=== PATIENT | male | born 1960 | race Caucasian/White ===

== ENCOUNTER 2017-08-06 18:29 | Emergency (ER) | payer OTHER, SELFPAY ==
[2017-08-06 18:30] VITALS: BP 162/92; PULSE 89; RESP 16; TEMP 36.6; O2SAT 95; BMI 33.9
[2017-08-06 19:19] LABS: Bacteria 0 SEEN /hpf (None Seen); Mucous, Urine 0 SEEN /hpf (<or=2+); Red Blood Cells-Urine 0 SEEN /hpf (0-5); Squamous Epithelial Cells - UA 0 SEEN /hpf (0-5); White Blood Cells 0 SEEN /hpf (0-5)
[2017-08-06 19:21] LABS: Color, Urine Yellow (Yellow); Glucose, Dipstick Normal (Normal); Ketone-Dipstick Negative (Negative); Leukocyte Esterase-Dipstick 25 /ul (Negative); Nitrite-Dipstick Negative (Negative); Occult Blood-Urine Negative /ul (Negative); Protein-Dipstick Negative (Negative); Urine Bilirubin Dipstick Negative (Negative); Urine Clarity Clear (Clear); Urine Urobilinogen Normal (Normal)
[2017-08-06 19:27] LABS: Absolute Lymphocyte Count 1.31 X10^3/ul (0.83-4.51); Basophil# 0.03 X10^3/uL; Basophil% 0.6 % (0-1); Hematocrit 40.7 % (40-54); Hemoglobin 13.6 g/dl (13.0-16.5); Lymphocyte # 1.31 X10^3/ul (4.0); Mean Corp Hgb Conc 33.4 g/gl (32-36); Mean Corpuscular Hgb 28.5 pg (27.0-32.0); Mean Corpuscular Volume 85.3 fL (80-94); Mean Platelet Vol. 8.7 fl (6.2-12.0); Monocyte# 0.63 X10^3/uL; Monocyte% 12.5 % (0-10); Neutrophil # 2.96 X10^3/uL (2.7-7.7); Neutrophil % 58.7 % (47-70); Platelet Count 185 K/mm3 (150-450); RBC Distribution Width CV 13.3 % (11.6-14.6); RBC Distribution Width SD 41.4 fl (35.1-43.9); Red Blood Count 4.77 M/mm3 (4.6-6.2)
[2017-08-06 19:28] LABS: POSITIVE COUNT NO; POSITIVE DIFFERENTIAL NO; POSITIVE MORPHOLOGY NO
[2017-08-06 19:40] LABS: Anion Gap 8 (5-15); BUN 12 mg/dL (7-18); BUN/Creat Ratio 15.3 RATIO (10-20); Calcium,Total 8.7 mg/dL (8.5-10.1); Chloride 107 mmol/L (98-107); Creatinine, Serum 0.79 mg/dL (0.70-1.30); EST Glomerular Filtration Rate 109 mL/min (>60); Est Glom Filt Rate - Afr Amer 131 mL/min (>60); Estimated Creatinine Clearance 115.96 ml/min; Glucose 82 mg/dL (74-106); Potassium 3.7 mmol/L (3.5-5.1); Sodium Level 142 mmol/L (136-145)
--- NOTE | 2017-08-06 20:03 | ED.DCSUM_ITS ---
- ER Visit Summary Date of Service: 08/06/17 Chief Complaint: Dysuria and frequency History of Present Illness: The patient is a [address] Mckeon. He reports that he has dysuria and frequency that began 2 days ago. He states that he at times feels as though he does not empty his bladder well. However, he reports that he emptied a better than it had previously just prior to coming to the emergency department. He denies any abdominal pain, fever, chills, nausea, or vomiting. Physical Examination: Vitals: Stable. Afebrile. General: Well-nourished and well-developed. Head: Normocephalic atraumatic. Neck: Supple, no lymphadenopathy. No JVD. Nontender. Cardiovascular: Regular rate and rhythm. No murmurs. Respiratory: No respiratory distress. Clear to auscultation bilaterally. Abdominal: Soft, nontender, nondistended, normal bowel sounds. No guarding, rebound, or peritoneal signs. Back: Nontender. Extremities: Nontender, no edema. Skin: Normal color, no rash. Neurologic: Alert and oriented ?3. Cranial nerves II through XII are intact. Normal strength and sensation. Psych: Normal affect. Test Results: CBC is remarkable for monocytes of 13. Chem-7 is normal. UA is negative. Emergency Department Course and Treatment: She had a bladder scan that showed 87 cc. He has no suprapubic tenderness or fullness to suggest that this is wrong. He does not want a Gallo catheter placed. I feel that is a reasonable course of action. Treatment Plan: He will be discharged with Flomax. Instructed to return to emerge department if he is having difficulty emptying his bladder. Follow-up Dr. Mckeon tomorrow as previously scheduled. Follow Dr. Chacon in 1 week if not improving. Disposition: To home in improved and stable condition. Impression: 1. Urethritis. This note was generated with [employer] dictation software. It may contain incorrect words, spelling, and punctuation that were not noted in review of the chart prior to signing ED Disposition - Plan for ED Patient: Disposition: Home or Assisted Living Chief Complaint: Complaint Instructions: ED Retention Urinary Male Prescriptions: Tamsulosin HCl [Flomax] 0.4 mg PO DAILY #30 capsule Referrals: Enrique Chacon MD [STAFF PHYSICIAN] - 1 Week if not improving Boone Mckeon MD [Primary Care Provider] - Keep Brando appointment
[2017-08-06 20:11] VITALS: BP 153/91; PULSE 72; RESP 16; O2SAT 95
== END 2017-08-06 20:11 | disposition home or self-care (01) ==
PROVIDERS: Emergency Provider Emergency Medicine; Family Provider Internal Medicine; PCP Internal Medicine
DX: N34.2 Other urethritis (principal)
CPT/HCPCS: 80048; 81001; 85025; 99284; A4216

== ENCOUNTER → 2018-02-04 17:29 | Outpatient (CLI) | payer OTHER, SELFPAY | PROVIDERS: Family Provider Internal Medicine; PCP Internal Medicine; Visit Provider Specialist | DX: M25.561 Pain in right knee (principal); M25.461 Effusion, right knee | CPT/HCPCS: 73721 ==

== ENCOUNTER 2021-08-02 15:35 | Outpatient (CLI) | payer OTHER, SELFPAY ==
[2021-08-02 16:42] LABS: Hematocrit 43.1 % (40-54); Hemoglobin 14.2 g/dL (13.0-16.5); Mean Corp Hgb Conc 32.9 g/dL (32-36); Mean Corpuscular Hgb 28.6 pg (27.0-32.0); Mean Corpuscular Volume 86.9 fL (80-94); Mean Platelet Vol. 9.5 fl (6.2-12.0); Platelet Count 234 K/mm3 (150-450); RBC Distribution Width CV 13.7 % (11.6-14.6); RBC Distribution Width SD 43.1 fl (35.1-43.9); Red Blood Count 4.96 M/mm3 (4.6-6.2); White Blood Count 5.7 K/mm3 (4.4-11.0)
[2021-08-02 17:19] LABS: Anion Gap 2 (5-15); BUN 20 mg/dL (7-18); BUN/Creat Ratio 18.2 RATIO (10-20); Calcium,Total 8.8 mg/dL (8.5-10.1); Chloride 107 mmol/L (98-107); EST Glomerular Filtration Rate 73 mL/min (>60); Est Glom Filt Rate - Afr Amer 88 mL/min (>60); Glucose 84 mg/dL (74-106); Potassium 4.5 mmol/L (3.5-5.1); Sodium Level 140 mmol/L (136-145)
== END 2021-08-02 23:59 | disposition home or self-care (01) ==
LOC: LAB 15:39
PROVIDERS: PCP Internal Medicine; Visit Provider Surgery
DX: Z01.812 Encounter for preprocedural laboratory examination (principal)
CPT/HCPCS: 36415; 80048; 85027

== ENCOUNTER 2021-08-06 14:12 | Outpatient (CLI) | payer OTHER, SELFPAY ==
--- NOTE | 2021-08-06 16:16 | EKG12_ITS ---
Test Reason : PRE OP Blood Pressure : / mmHG Vent. Rate : 080 BPM Atrial Rate : 080 BPM P-R Int : 198 ms QRS Dur : 112 ms QT Int : 350 ms P-R-T Axes : 039 -29 016 degrees QTc Int : 403 ms Normal sinus rhythm Normal ECG Confirmed by BRIDGETTE JONES, DEVEN ([id number]), newspaper editor ADELE ALCOCER ([id number]) on 08/09/2021 1:17:22 PM Referred By: Macho Clinton Confirmed By:DEVEN ANGELES MD
== END 2021-08-06 23:59 | disposition home or self-care (01) ==
LOC: PSN 08-22 14:12
PROVIDERS: PCP Internal Medicine; Referring Provider Surgery; Visit Provider Surgery
DX: Z01.810 Encounter for preprocedural cardiovascular examination (principal); Z01.812 Encounter for preprocedural laboratory examination
CPT/HCPCS: 93005

== ENCOUNTER → 2025-03-30 | Outpatient (CLI) | payer BC, SELFPAY ==
--- NOTE | 2025-03-30 06:33 | EKG12_ITS ---
Test Reason : PRE OP Blood Pressure : */* mmHG Vent. Rate : 91 BPM Atrial Rate : 91 BPM P-R Int : 198 ms QRS Dur : 100 ms QT Int : 348 ms P-R-T Axes : 43 -71 31 degrees QTcB Int : 428 ms Normal sinus rhythm Left anterior fascicular block Abnormal ECG Confirmed by Costa Melchor ([id number]), continuity editor LISSET CHAO ([id number]) on 03/30/2025 1:26:01 PM Referred By: Abner Sosa Confirmed By: Costa Melchor
--- OUTSIDE RECORDS SUMMARY | 2025-03-30 06:35 | XMS RPT_ITS | CCD ---
Author Organization [facility] Care Team Providers Care Contract Admin Name Role Phone Dr. Boone Andino Primary Care Provider Dr. Boone Andino Referring Provider PEE Maldonado Attending Provider Dr. Mauricio Tong Attending Provider Dr. Macho Clinton Referring Provider Mike JONES, Boone Hermosillo Primary Care Provider Mike JONES, Boone Hermosillo Primary Care Provider Mike JONES, Boone Hermosillo Primary Care Provider Petra PETERS.WINE MERCHANT, Abby M Unavailable BOONE ANDINO Referring Unavailable MIKE, BOONE Hermosillo Primary Care Unavailable BOONE ANDINO Referring Unavailable ANDINO, BOONE Hermosillo Primary Care Unavailable MIKE, BOONE Hermosillo Attending Unavailable MIKE, BOONE Hermosillo Primary Care Unavailable BOONE ANDINO Attending Unavailable ANDINO, BOONE Hermosillo Primary Care Unavailable ANDINO, BOONE Hermosillo Attending Unavailable ANDINO, BOONE Hermosillo Primary Care Unavailable ANDINO, BOONE Hermosillo Attending Unavailable MIKE, BOONE Hermosillo Primary Care Unavailable Allergies Allergy Classification Reported Allergen(s) Allergy Type Date of Onset Reaction(s) Facility (14 sources) Penicillins; Translations: [PENICILLINS] Propensity to adverse reactions 05-26-2006 [facility] Work Phone: (7 sources) Penicillins Propensity to adverse reactions 05-26-2006 [facility] Medications Current Medications Medication Drug Class(es) Dates Sig (Normalized) Sig (Original) 12 hr buPROPion hydrochloride 150 mg extended release oral tablet (1 source) Aminoketone Start: 08-06-2017 take 1 tablet by mouth twice daily Bupropion Hcl (Wellbutrin Sr) 150 MG tablet sustained-release 12 hr Active 150 MG PO TWICE A DAY August 06, 2017 8:03pm diclofenac sodium 75 mg delayed release oral tablet (8 sources) Nonsteroidal Anti-inflammatory Drug Start: 11-15-2024 End: 02-16-2025 take 1 tablet by mouth twice daily diclofenac, EC, (VOLTAREN) 75 mg EC tablet Indications: Osteoarthritis of spine with radiculopathy, cervical region , Osteoarthritis of fingers of both hands , Primary osteoarthritis of both knees Take 1 tablet by mouth two times a day. 60 tablet 2 02/17/2025 Active doxycycline hyclate 100 mg oral tablet (2 sources) Tetracycline-class Drug Start: 12-08-2023 End: 12-15-2023 take 1 tablet by mouth twice daily doxycycline (VIBRA-TABS) 100 mg tablet Take 1 tablet by mouth two times a day for 7 days. 14 tablet 0 12/08/2023 12/15/2023 Active Start: 06-25-2022 End: 06-30-2022 take 1 tablet by mouth twice daily doxycycline monohydrate 100 mg tablet Take 1 tablet by mouth twice daily for 5 days. 10 tablet 0 06/25/2022 06/30/2022 Active Comment on above: Take 1 tablet by malaika th twice daily for 5 days. fluticasone propionate 0.05 mg/actuat metered dose nasal spray (1 source) Corticosteroid Start: 023 End: take 2 spray(s) by mouth once daily fluticasone (FLONASE) 50 mcg/actuation nasal spray Use 2 Sprays in each nostril once daily. Rinse mouth after use. 18.2 mL 0 06/22/2022 07/22/2022 Active Comment on above: Use 2 Sprays in each nostril once daily. Rinse mouth after use. furosemide 20 mg oral tablet (20 sources) Loop Diuretic Start: 021 End: take 1 tablet by mouth once daily as needed for edema furosemide (LASIX) 20 mg tablet Indications: Varicose veins of both lower extremities, unspecified whether complicated Take 1 tablet by mouth once daily as needed (edema). 90 tablet 3 03/25/2024 Active Comment on above: Take 1 tablet by malaika once daily as needed (edema). gabapentin 100 mg oral capsule (20 sources) Anti-epileptic Agent Start: 019 End: gabapentin (NEURONTIN) 100 mg capsule Indications: Osteoarthritis of spine with radiculopathy, cervical region 1 to 2 capsules at bedtime NEEDED. 60 capsule 2 03/25/2024 02/21/2027 Active Comment on above: 1 to 2 capsules at b edtime NEEDED. phentermine hydrochloride 37.5 mg oral capsule (7 sources) Sympathomimetic Amine Anorectic Start: 025 End: 025 take 1 capsule by mouth once daily Phentermine HCl 37.5 mg capsule Indications: Obesity, Class II, BMI 35-39.9 Take 1 capsule by mouth once daily for 60 days. Patient should start on February 19, 2025. 30 capsule 1 02/19/2025 04/20/2025 Active Start: 12-20-2024 End: 02-18-2025 take 1 capsule by mouth once daily before breakfast Phentermine HCl 30 mg capsule Indications: Obesity, Class II, BMI 35-39.9 Take 1 capsule by mouth daily before breakfast for 60 days. Patient should start on December 20, 2024. 30 capsule 1 12/20/2024 02/10/2025 Discontinued (Dosage adjustment) Start: 11-21-2024 End: 12-21-2024 take 1 capsule by mouth once daily before breakfast Phentermine HCl 15 mg capsule Indications: Obesity, Class II, BMI 35-39.9 Take 1 capsule by mouth daily before breakfast for 30 days. Patient should start on November 21, 2024. 30 capsule 11/21/2024 12/16/2024 Discontinued (Dosage adjustment) microencapsulated potassium chloride 20 meq extended release oral tablet (20 sources) Start: 12-04-2020 End: 03-25-2024 take 1 tablet by mouth once daily as needed for edema potassium chloride ER (KLOR-CON M20) 20 mEq tablet Indications: Varicose veins of both lower extremities, unspecified whether complicated Take 1 tablet by mouth once daily as needed (edema). 90 tablet 3 03/25/2024 Active Comment on above: Take 1 tablet by malaika th once daily as needed (edema). pravastatin sodium 20 mg oral tablet (9 sources) HMG-CoA Reductase Inhibitor Start: 04-17-2024 take 1 tablet by mouth once daily at bedtime pravastatin (PRAVACHOL) 20 mg tablet Indications: Hypercholesterolemia Take 1 tablet by mouth daily at bedtime. 90 tablet 3 04/17/2024 Active sildenafil 50 mg oral tablet (20 sources) Phosphodiesterase 5 Inhibitor Start: 12-04-2020 End: 04-14-2023 take 1 tablet by mouth once daily as needed sildenafil (VIAGRA) 50 mg tablet Indications: Erectile dysfunction, unspecified erectile dysfunction type Take 1 tablet by mouth once daily as needed. 30 tablet 1 04/14/2023 Active Comment on above: Take 1 tablet by malaika th once daily as needed. tamsulosin hydrochloride 0.4 mg oral capsule (20 sources) alpha-Adrenergic Shayna Start: 08-06-2017 End: 03-25-2024 take 1 capsule by mouth once daily at bedtime tamsulosin (FLOMAX) 0.4 mg Indications: BPH with obstruction/lower urinary tract symptoms Take 1 capsule by mouth daily at bedtime. 90 capsule 3 03/25/2024 Active Comment on above: Take 1 capsule by mo ut daily at bedtime. Completed/Discontinued Medications Medication Drug Class(es) Dates Sig (Normalized) Sig (Original) azithromycin 250 mg oral tablet (1 source) Macrolide Antimicrobial Start: 05-03-2021 End: 08-04-2021 Azithromycin (Zithromax Z-Hima) 250 mg tablet Discontinued 0 PO .COMPLEX 6 May 03, 2021 9:54am August 04, 2021 9:49am For 250 mg dose pack: take 500 mg today (day 1), then 250 mg for 4 days (days 2-5) PO COMPOUNDED PRESCRIPTION (1 source) Start: 06-11-2013 End: 02-06-2022 COMPOUNDED PRESCRIPTION Indications: Varicose vein of leg KNEE HIGH COMPRESSION STOCKINGS 30-40 MM. RIGHT LEG. DX: EDEMA, VARICOSE VEINS. 1 Units 0 06/11/2013 02/06/2022 Discontinued Comment on above: KNEE HIGH COMPRESSIO N STOCKINGS 30-40 MM. RIGHT LEG. DX: EDEMA, VARICOSE VEINS. meloxicam 15 mg oral tablet (17 sources) Nonsteroidal Anti-inflammatory Drug Start: 12-04-2020 End: 11-15-2024 take 1 tablet by mouth once daily as needed for pain meloxicam (MOBIC) 15 mg tablet Indications: Osteoarthritis of spine with radiculopathy, cervical region Take 1 tablet by mouth once daily as needed for pain. With food. 90 tablet 3 03/25/2024 11/15/2024 Discontinued (Changing Therapy/Dosage Form) Comment on above: Take 1 tablet by malaika th once daily as needed for pain. With food. polyethylene glycol 3350 201389 mg / potassium chloride 2980 mg / sodium bicarbonate 6720 mg / sodium chloride 5840 mg / sodium sulfate 03772 mg powder for oral solution (1 source) Osmotic Laxative Start: 04-14-2023 End: 04-14-2023 peg 3350-electrolytes (GAVILYTE-C) 240-22.72-6.72 -5.84 gram solution Indications: Special screening for malignant neoplasms, colon Take 4,000 mL by mouth one time only for 1 dose. 4000 mL 0 04/14/2023 04/14/2023 Comment on above: Take 4,000 mL by malaika th one time only for 1 dose. semaglutide, weight loss, (WEGOVY) 0.25 mg/0.5 mL pen injector (3 sources) Start: 11-15-2024 End: 11-19-2024 semaglutide, weight loss, (WEGOVY) 0.25 mg/0.5 mL pen injector Indications: Class 3 severe obesity without serious comorbidity with body mass index (BMI) of 40.0 to 44.9 in adult, unspecified obesity type (HCC) Inject 0.25 mg subcutaneously one time a week. 2 mL 1 11/15/2024 11/19/2024 Discontinued (Cost of medication) Start: 11-15-2024 semaglutide, w eight loss, (WEGOVY) 0.25 mg/0.5 mL pen injector Indications: Class 3 severe obesity without serious comorbidity with body mass index (BMI) of 40.0 to 44.9 in adult, unspecified obesity type (HCC) Inject 0.25 mg subcutaneously one time a week. 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; Translations: [Derangement of unspecified medial meniscus due to old tear or injury, right knee] Onset: 02-04-2018 09-11-2018 Chronic Osteoarthritis (20 sources) Primary gonarthrosis, bilateral; Translations: [Bilateral primary osteoarthritis of knee] Onset: 11-15-2024 Chronic Other connective tissue disease (1 source) Pain of bilateral hands; Translations: [Pain in right hand] Episodic Other ear and sense organ disorders (1 source) Bilateral hearing loss; Translations: [Impacted cerumen, bilateral] Episodic Other ear and sense organ disorders (1 source) Impacted cerumen in right ear; Translations: [Impacted cerumen, right ear] 03-25-2024 Episodic Other lower respiratory disease (1 source) Cough; Translations: [Cough] Episodic Other male genital disorders (20 sources) Male erectile dysfunction, unspecified; Translations: [Impotence of organic origin] Onset: 07-18-2016 Chronic Other nutritional; endocrine; and metabolic disorders (3 sources) Severe obesity; Translations: [Morbid (severe) obesity due to excess calories] Chronic Other nutritional; endocrine; and metabolic disorders (20 sources) Obese class II; Translations: [Obesity, unspecified] Onset: 04-14-2023 04-14-2023 Chronic Other nutritional; endocrine; and metabolic disorders (1 source) Body mass index (BMI) 40.0-44.9, adult; Translations: [Class 3 severe obesity without serious comorbidity with body mass index (BMI) of 40.0 to 44.9 in adult, unspecified obesity type (HCC)] Onset: 11-15-2024 Chronic Other upper respiratory infections (2 sources) Bacterial sinusitis; Translations: [Chronic sinusitis, unspecified] Chronic Other upper respiratory infections (3 sources) Upper respiratory infection; Translations: [Acute upper respiratory infection, unspecified] Onset: 12-16-2024 12-16-2024 Episodic Spondylosis; intervertebral disc disorders; other back problems (20 sources) Cervical spondylosis; Translations: [Other spondylosis with radiculopathy, cervical region] Onset: 11-18-2011 Chronic Unclassified (1 source) Obesity, Class II, BMI 35-39.9; Translations: [Obesity, Class II, BMI 35-39.9] Onset: 04-14-2023 Unclassified (1 source) Class 3 severe obesity without serious comorbidity with body mass index (BMI) of 40.0 to 44.9 in adult, unspecified obesity type (HCC); Translations: [Class 3 severe obesity without serious comorbidity with body mass index (BMI) of 40.0 to 44.9 in adult, unspecified obesity type (HCC)] Onset: 11-15-2024 Past or Other Problems Problem Classification Problem Date Documented Da te Episodic/Chronic Essential hypertension (11 sources) Benign essential hypertension; Translations: [Essential (primary) hypertension] Onset: 07-03-2006 Resolved: 12-04-2020 12-04-2020 Chronic Hypertension with complications and secondary hypertension (11 sources) Hypertensive heart disease; Translations: [Hypertensive heart disease without heart failure] Onset: 07-03-2006 Resolved: 02-08-2016 02-08-2016 Chronic Immunizations and screening for infectious disease (19 sources) Patient encounter status; Translations: [Encounter for screening for COVID-19] Onset: 06-30-2023 Resolved: 03-25-2024 Episodic Mood disorders (11 sources) Depressive disorder; Translations: [Depressive disorder] Onset: 07-03-2015 Resolved: 04-18-2020 04-18-2020 Chronic Other gastrointestinal disorders (20 sources) Stool DNA-based colorectal cancer screening positive; Translations: [Other fecal abnormalities] Onset: 08-08-2022 Resolved: 03-25-2024 Episodic Other non-traumatic joint disorders (11 sources) Multiple joint pain; Translations: [Pain in unspecified joint] Onset: 10-26-2008 Resolved: 07-03-2015 07-03-2015 Episodic Other nutritional; endocrine; and metabolic disorders (15 sources) Obesity; Translations: [Obesity, unspecified] Onset: 07-03-2006 Resolved: 04-14-2023 07-03-2006 Chronic Daniela-; endo-; and myocarditis; cardiomyopathy (except that caused by tuberculosis or sexually transmitted disease) (11 sources) Cardiomyopathy; Translations: [Cardiomyopathy, unspecified] Onset: 02-14-2009 Resolved: 02-08-2016 02-08-2016 Chronic Residual codes; unclassified (11 sources) Sleep apnea; Translations: [Sleep apnea, unspecified] Onset: 02-14-2009 Resolved: 08-07-2017 08-07-2017 Chronic Varicose veins of lower extremity (20 sources) Varicose veins of bilateral lower limbs; Translations: [Asymptomatic varicose veins of bilateral lower extremities] Onset: 08-07-2017 Episodic Results Test Name Value Interpretation Reference Range Facility [facility] 02-10-2025 CNOV Office Visit (INTMWS ) JOSE LIAO ([id number]) 1960 M Date Time Provider Department 02/10/25 6:40 PM BOONE ANDINO INTMWS During your visit today, we recorded the following information about you: Temperature Pulse Respiration Blood pressure 97.9 degrees 81/minute 14/minute 124/80 Weight Height 121.4 kg 1.772 m Boone Andino MD 02/11/2025 8:29 AM Signed Subjective Jose Liao is a 64 year old male. Patient presents with: Follow Up: weight check/adipex Jac Liao is a 64-year-old male with a history of obesity presenting for follow-up of medication-assisted weight loss. Weight Management:He started in November, his weight was 287 lb. Initial ask for a GLP-1 medication was denied by his insurance. We started phentermine and noted his weight decreased from 287 lb to 275 lb. Currently, he weighs 267 lb. Jac denies any side effects from phentermine, although he feels it wears off toward the end of the day, coinciding with his larger caloric intake at dinner. He states his appetite is otherwise stable and denies fatigue. Weight loss efforts are in anticipation of knee replacement surgery scheduled in April for knee replacements. He denies chest pain, palpitations, anxiety, or insomnia. Review of Systems Constitutional: (+) weight loss, (-) fatigue, (-) appetite change Cardiovascular: (-) chest pain, (-) palpitations Psychiatric: (-) anxiety, (-) insomnia Objective BP 124/80 Pulse 81 Temp 36.6 ?C (97.9 ?F) (Temporal) Resp 14 Ht 177.2 cm (5' 9.75") Wt 121.4 kg (267 lb 10.2 oz) SpO2 97% BMI 38.68 kg/m? Physical Exam GENERAL: NAD, alert and oriented. SLUNGS: Clear to auscultation bilaterally, no wheezes/rhonchi/rales . HEART: Regular rate and rhythm, no murmurs. No ectopy. MOOD: normal. ASSESSMENT/PLAN: 1. Obesity, Class II, BMI 35-39.9 - ICD9: 278.00, ICD10: E66.812 Weight decreasing - PHENTERMINE 37.5 MG CAPSULE - Continue taking phentermine at the maximized dose daily for the next two months; plan to stop the medication just before your knee replacement surgery in April. - Monitor for any side effects (for example, changes in heart rate, blood pressure, mood, or sleep); contact the office if you notice any new or concerning symptoms. - Attend your pre-operative examination appointment in April to review your readiness for knee replacement surgery. Boone Andino MD Allergies As of Date: 02/10/2025 Noted Allergy Reaction PENICILLINS 05/26/2006 Date Reviewed: 02/10/2025 Reviewed by: Dorota Duffy LPN - Fully Assessed Reason for Visit: Follow Up [171] Cmt: weight check/adipex Primary Visit Diagnosis:Obesity, Class II, BMI 35-39.9 [E66.812] Order(s):[START ON 02/19/2025] Phentermine HCl 37.5 mg capsuleTake 1 capsule by mouth once daily for 60 days. Patient should start on February 19, 2025.Disp: 30 capsuleRfl: 1 Prescriptions as of 02/11/2025 - Phentermine HCl 37.5 mg capsule Take 1 capsule by mouth once daily for 60 days. Patient should start on February 19, 2025. - diclofenac, EC, (VOLTAREN) 75 mg EC tablet Take 1 tablet by mouth two times a day. - pravastatin (PRAVACHOL) 20 mg tablet Take 1 tablet by mouth daily at bedtime. - tamsulosin (FLOMAX) 0.4 mg Take 1 capsule by mouth daily at bedtime. - potassium chloride ER (KLOR-CON M20) 20 mEq tablet Take 1 tablet by mouth once daily as needed (edema). - gabapentin (NEURONTIN) 100 mg capsule 1 to 2 capsules at bedtime NEEDED. - furosemide (LASIX) 20 mg tablet Take 1 tablet by mouth once daily as needed (edema). - sildenafil (VIAGRA) 50 mg tablet Take 1 tablet by mouth once daily as needed. Problem List As Of Date 02/10/2025 Noted Resolved Essential hypertension, benign [I10] 07/03/2006 12/04/2020 Hypertensive heart disease without heart failur*07/03/2006 02/08/2016 Hypercholesterolemia [E78.00] 07/03/2006 Obesity, unspecified [E66.9] 07/03/2006 04/14/2023 Pain in joint, multiple sites [M25.50] 10/26/2008 07/03/2015 Cardiomyopathy (HCC) [I42.9] 02/14/2009 02/08/2016 Sleep apnea [G47.30] 02/14/2009 08/07/2017 DJD (degenerative joint disease) of cervical sp*11/18/2011 Depressive disorder [F32.A] 07/03/2015 04/18/2020 Erectile dysfunction [N52.9] 07/18/2016 Varicose veins of legs [I83.93] 08/07/2017 Degenerative tear of medial meniscus of right k*02/04/2018 BPH with obstruction/lower urinary tract sympto*11/18/2019 Positive colorectal cancer screening using [place]*08/08/2022 03/25/2024 Obesity, Class II, BMI 35-39.9 [E66.812] 04/14/2023 Special screening for malignant neoplasms, colo*06/30/2023 03/25/2024 Osteoarthritis of fingers of both hands [M19.04*11/15/2024 Primary osteoarthritis of both knees [M17.0] 11/16/2024 Prescriptions ordered this encounter Disp Refills Start End PHENTERMINE 37.5 MG CAPSULE 30 c* 1 02/19/2025 04/20/2025 Route: (more content not included)... Normal [facility] CNOVon 12-16-2024 CNOV Office Visit (INTMWS ) JOSE LIAO ([id number]) 1960 M Date Time Provider Department 12/16/24 7:00 PM BOONE ANDINO INTMWS During your visit today, we recorded the following information about you: Pulse Blood pressure Weight 73/minute 128/80 125 kg Boone Andino MD 12/16/2024 7:21 PM Signed This note was created using [employer]. Subjective Patient presents with: Obesity: Medication follow up Jose Liao is a 64 year old male. Weight was down 11 pounds. He was also on the tail end of a upper respiratory infection. He did not feel appetite was suppressed, but he noted no side effects from phentermine. We tried GLP1 but medication was not covered. His joint pains were also better after switching meloxicam to diclofenac. Review of Systems Constitutional: Negative for chills and fever. HENT: Positive for congestion. Negative for sore throat. Respiratory: Positive for cough. Negative for shortness of breath. Cardiovascular: Negative for chest pain and palpitations. Gastrointestinal: Negative for abdominal pain, diarrhea, nausea and vomiting. Psychiatric/Behaviora l: Negative for sleep disturbance. The patient is not nervous/anxious. 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 Patient should start on November 21, 2024. diclofenac, EC, (VOLTAREN) 75 mg EC tablet Take 1 tablet by mouth two times a day. pravastatin (PRAVACHOL) 20 mg tablet Take 1 tablet by mouth daily at bedtime. tamsulosin (FLOMAX) 0.4 mg Take 1 capsule by mouth daily at bedtime. potassium chloride ER (KLOR-CON M20) 20 mEq tablet Take 1 tablet by mouth once daily as needed (edema). gabapentin (NEURONTIN) 100 mg capsule 1 to 2 capsules at bedtime NEEDED. furosemide (LASIX) 20 mg tablet Take 1 tablet by mouth once daily as needed (edema). sildenafil (VIAGRA) 50 mg tablet Take 1 tablet by mouth once daily as needed. No current facility-administered medications for this visit. Objective BP 128/80 Pulse 73 Wt 125 kg (275 lb 9.2 oz) SpO2 97% BMI 39.82 kg/m? Physical Exam Constitutional: General: He is not in acute distress. Appearance: He is not ill-appearing. HENT: Nose: No congestion or rhinorrhea. Mouth/Throat: Mouth: Mucous membranes are moist. Pharynx: Oropharynx is clear. Cardiovascular: Rate and Rhythm: Normal rate and regular rhythm. Heart sounds: No murmur heard. Pulmonary: Breath sounds: No wheezing, rhonchi or rales. Neurological: Mental Status: He is alert. Assessment and Plan 1. Obesity, Class II, BMI 35-39.9 - ICD9: 278.00, ICD10: E66.812 (primary diagnosis) Weight decreasing - Behavioral and pharmacological intervention - PHENTERMINE 30 MG CAPSULE Discussed medication dosage, usage, goals of therapy, and side effects. Risks reviewed. I reiterated duration of not more than 6 months. 2. Viral upper respiratory tract infection - ICD9: 465.9, ICD10: J06.9 - Discussed viral etiology and rationale for treatment. - Supportive care with fluids and rest 3. Primary osteoarthritis of both knees - ICD9: 715.16, ICD10: M17.0 - Improved pain control. - TKR planned for April. Boone Andino MD Allergies As of Date: 12/16/2024 Noted Allergy Reaction PENICILLINS 05/26/2006 Date Reviewed: 12/16/2024 Reviewed by: Rashmi Jones MA - Fully Assessed Reason for Visit: Obesity [577] Cmt: Medication follow up Primary Visit Diagnosis:Obesity, Class II, BMI 35-39.9 [E66.812] Other Visit Diagnoses:Viral upper respiratory tract infection [J06.9] Primary osteoarthritis of both knees [M17.0] Order(s):[START ON 12/20/2024] Phentermine HCl 30 mg capsuleTake 1 capsule by mouth daily before breakfast for 60 days. Patient should start on December 20, 2024.Disp: 30 capsuleRfl: 1 Prescriptions as of 12/16/2024 - Phentermine HCl 30 mg capsule Take 1 capsule by mouth daily before breakfast for 60 days. Patient should start on December 20, 2024. - diclofenac, EC, (VOLTAREN) 75 mg EC tablet Take 1 tablet by mouth two times a day. - pravastatin (PRAVACHOL) 20 mg tablet Take 1 tablet by mouth daily at bedtime. - tamsulosin (FLOMAX) 0.4 mg Take 1 capsule by mouth daily at bedtime. - potassium chloride ER (KLOR-CON M20 (more content not included)... Normal [facility]NP[facility] 11-16-2024 [facility]INT[facility] JOSE LIAO ([id number]) 1960 M Date Time Provider Department 11/16/24 BOONE ANDINO INTMWS During your visit today, we recorded the following information about you: Ban Mckeon LPN 11/16/2024 12:06 PM Signed Electronic PA rec'd and completed for wegovy. This was denied. Dear JOSE LIAO: [facility]? received a request for coverage of WEGOVY 0.25MG INJ for you. Your request was denied based on the terms of your prescription benefit plan. This is the initial adverse coverage determination for this request. The reason for the denial was: *Drug Not Covered/Plan Exclusion - Your request for coverage was denied because your prescription benefit plan does not cover the requested medication. Ban Mckeon LPN 11/17/2024 4:13 PM Signed Message left for pt to return call to a nurse. Sierra Rodriguez RN 11/17/2024 4:25 PM Signed Patient calls and notified of below that Wegovy was denied by insurance. Patient voices understanding. Patient states that provider told him that there may be other options of medication if this was denied. Please review and advise, DEN Fisher Victor H, MD 11/18/2024 12:34 AM Signed Is he interested in paying out of pocket for Zepbound vials (He will draw and inject like insulin once a week) starting at $349/per month thru [employer]? Evelyn Graham LPN 11/18/2024 1:19 PM Signed Patient Gregoria calling her asking if PCP would be willing to prescribe an appetite suppressant, that he discussed at his appt on 11/15? She said her would not want to pay the cost for the Zepbound rx. Please advise Boone Andino MD 11/19/2024 12:31 AM Signed 1) used in conjunction with diet and activity. 2) risk of addiction/abuse as discussed. 3) office visit and demonstrated weight loss required for refills. 4) duration not more than 6 months. Please inform the patient. The following approved medication requests have been transmitted electronically. Requested Prescriptions Signed Prescriptions Disp Refills Phentermine HCl 15 mg capsule 30 capsule 0 Sig: Take 1 capsule by mouth daily before breakfast for 30 days. Patient should start on November 21, 2024. Authorizing Provider: BOONE ANDINO MD Hudson, M Robin, RN 11/19/2024 9:37 AM Signed Left vm for patient to return call to nurse for provider message. Gosia Fajardo RN 11/19/2024 9:39 AM Signed Pt called and is notified of providers results and instructions. Pt voices understanding. Gosia Fajardo RN Allergies As of Date: 11/16/2024 Noted Allergy Reaction PENICILLINS 05/26/2006 Date Reviewed: 11/15/2024 Reviewed by: Chelsey Hendrickson LPN - Fully Assessed Reason for Visit: Insurance Authorization [1693] Primary Visit Diagnosis:Obesity, Class II, BMI 35-39.9 [E66.812] Order(s):[START ON 11/21/2024] Phentermine HCl 15 mg capsuleTake 1 capsule by mouth daily before breakfast for 30 days. Patient should start on November 21, 2024.Disp: 30 capsuleRfl: 0 Prescriptions as of 11/19/2024 - Phentermine HCl 15 mg capsule Take 1 capsule by mouth daily before breakfast for 30 days. Patient should start on November 21, 2024. - diclofenac, EC, (VOLTAREN) 75 mg EC tablet Take 1 tablet by mouth two times a day. - pravastatin (PRAVACHOL) 20 mg tablet Take 1 tablet by mouth daily at bedtime. - tamsulosin (FLOMAX) 0.4 mg Take 1 capsule by mouth daily at bedtime. - potassium chloride ER (KLOR-CON M20) 20 mEq tablet Take 1 tablet by mouth once daily as needed (edema). - gabapentin (NEURONTIN) 100 mg capsule 1 to 2 capsules at bedtime NEEDED. - furosemide (LASIX) 20 mg tablet Take 1 tablet by mouth once daily as needed (edema). - sildenafil (VIAGRA) 50 mg tablet Take 1 tablet by mouth once daily as needed. Problem List As Of Date 11/16/2024 Noted Resolved Essential hypertension, benign [I10] 07/03/2006 12/04/2020 Hypertensive heart disease without heart failur*07/03/2006 02/08/2016 Hypercholesterolemia [E78.00] 07/03/2006 Obesity, unspecified [E66.9] 07/03/2006 04/14/2023 Pain in joint, multiple sites [M25.50] 10/26/2008 07/03/2015 Cardiomyopathy (HCC) [I42.9] 02/14/2009 02/08/2016 Sleep apnea [G47.30] 02/14/2009 08/07/2017 DJD (degenerative joint disease) of cervical sp*11/18/2011 Depressive disorder [F32.A] 07/03/2015 04/18/2020 Erectile dysfunction [N52.9] 07/18/2016 Varicose veins of legs [I83.93] 08/07/2017 Degenerative tear of medial meniscus of right k*02/04/2018 BPH with obstruction/lower urinary tract sympto*11/18/2019 Positive colorectal cancer screening using [place]*08/08/2022 03/25/2024 Obesity, Class II, BMI 35-39.9 [E66.812] 04/14/2023 Special screening for malignant neoplasms, colo*06/30/2023 03/25/2024 Osteoarthritis of fingers of both hands [M19.04*11/15/2024 Primary osteoarthritis of both k (more content not included)... Normal [facility] CNOVon 11-15-2024 CNOV Office Visit (INTMWS ) JOES LIAO ([id number]) 1960 M Date Time Provider Department 11/15/24 7:20 PM BOONE ANDINO INTMWS During your visit today, we recorded the following information about you: Pulse Respiration Blood pressure Weight 96/minute 18/minute 120/74 130.1 kg Height 1.772 m Boone Andino MD 11/16/2024 7:22 AM Signed This note was created using #[email or web address]. Subjective Jose Liao is a 64 year old male here with his . Recording using Orthohub software for draft documentation of the visit was discussed with the patient/authorized accounts receivable representative; all questions welcomed and answered. Patient/authorized accounts receivable representative agreed to proceed Weight Loss Management: - Jac's BMI has increased since last visit. - Current weight: 287 lbs; previous weight: 276 lbs in March. - Orthopedic surgeon recommended weight loss prior to upcoming total knee arthroplasty scheduled for the Friday before . - Denies ability to exercise due to severe bilateral knee pain. - Interested in GLP-1 medications for weight loss. - Denies family history of endocrine tumors. - Denies history of addiction. - Never smoked. - Already started portion control with little effect. Osteoarthritis: - Severe bilateral knee pain, described as "bone on bone." - Scheduled for right total knee arthroplasty in April, with left knee arthroplasty planned for next year. - Under care of Dr. Sosa at [facility]. - Jac has received cortisone injections and PRP therapy in the past with minimal relief. - Currently taking meloxicam 15 mg daily, but reports it is not providing adequate relief. - Reports increased hand pain over the past six months, particularly during work. - Takes two Tylenol Arthritis daily. - Denies gastrointestinal side effects from meloxicam. - Meloxicam not helping finger pains. Hyperlipidemia: - Currently taking pravastatin 20 mg daily. - Recent cholesterol levels: 163 mg/dL (3 months ago), 195 mg/dL (7 months ago). - LDL: 97 mg/dL. - HDL: 51 mg/dL. - Triglycerides: within normal limits. - Denies family history of significant heart disease; father lived to 94 years, mother to 88 years. - Estimated 10-year risk for heart disease: 8%. Varicose Veins: - History of varicose veins in the right leg, with persistent swelling. 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 Current Outpatient Medications Medication Sig pravastatin (PRAVACHOL) 20 mg tablet Take 1 tablet by mouth daily at bedtime. tamsulosin (FLOMAX) 0.4 mg Take 1 capsule by mouth daily at bedtime. potassium chloride ER (KLOR-CON M20) 20 mEq tablet Take 1 tablet by mouth once daily as needed (edema). gabapentin (NEURONTIN) 100 mg capsule 1 to 2 capsules at bedtime NEEDED. furosemide (LASIX) 20 mg tablet Take 1 tablet by mouth once daily as needed (edema). meloxicam (MOBIC) 15 mg tablet Take 1 tablet by mouth once daily as needed for pain. With food. sildenafil (VIAGRA) 50 mg tablet Take 1 tablet by mouth once daily as needed. No current facility-administered medications for this visit. Objective BP 120/74 Pulse 96 Resp 18 Ht 177.2 cm (5' 9.75") Wt 130.1 kg (286 lb 13.1 oz) BMI 41.45 kg/m? Physical Exam Constitutional: Appearance: He is obese. He is not ill-appearing. Cardiovascular: Heart sounds: Normal heart sounds. Pulmonary: Breath sounds: Normal breath sounds. Musculoskeletal: Right hand: Deformity present. No swelling or tenderness. Left hand: Deformity present. No swelling or tenderness. Right knee: No deformity or effusion. Decreased range of motion. No tenderness. Left knee: No deformity or effusion. Decreased range of motion. No tenderness. Comments: Yoly's and Heberden's nodes in multiple digits. Reviewed: Last lipid profile. Assessment and Plan 1. Class 3 severe obesity without serious comorbidity with body mass index (BMI) of 40.0 to 44.9 in adult, unspecified obesity type (HCC) - ICD9: 278.01, V85.41, ICD10: E66.813, Z68.41 (primary diagnosis) (more content not included)... Normal [facility] Lipid 1996 panelon 5 Cholesterol [Mass/Vol] 163 mg/dL Normal <200 [facility] Comment on above: Order Comment: Mendy ascencio Type: BLOOD SPECIMEN Ordering Facility: [facility] Address: [address] [place] [address] Result Comment: <200 mg/dL, Desirable 200-239 mg/dL, Borderline high >239 mg/dL, High Performed By: #### 2 4331-1 #### [facility] CLIA [id number] [address] [place], [place] [address] [address] [place] Cholesterol in HDL [Mass/Vol] 51 mg/dL Normal >39 [facility] Comment on above: Order Comment: Mendy ascencio Type: BLOOD SPECIMEN Ordering Facility: [facility] Address: [address] [place] [address] Result Comment: 40-5 9 mg/dL, Acceptable >59 mg/dL, High: Negative risk factor for coronary heart disease <40 mg/dL, Low: Positive risk factor for coronary heart disease Performed By: #### 2 4331-1 #### [facility] CLIA [id number] [address] [place] [address] [place] Cholesterol in LDL [Mass/Vol] 97 mg/dL Normal <100 [facility] Comment on above: Order Comment: Mendy ascencio Type: BLOOD SPECIMEN Ordering Facility: [facility] Address: [address] [place] [address] Result Comment: <100 mg/dL, Optimal 100-129 mg/dL, Near optimal/above optimal 130-159 mg/dL, Borderline high 160-189 mg/dL, High >189 mg/dL, Very high Secondary prevention optimal LDL Cholesterol levels are recommended to be < 70 mg/dL Performed By: #### 2 4331-1 #### [facility] CLIA [id number] [address] [place] [address] [place] Cholesterol in LDL/Cholesterol in HDL [Mass ratio] 1.90 {ratio} Normal <2.54 [facility] Comment on above: Order Comment: Mendy ascencio Type: BLOOD SPECIMEN Ordering Facility: [facility] Address: [address] [place] [address] Result Comment: Refe silvia: 1. National Cholesterol Education Program ATP III Guideline At-A-Glance Quick Desk Reference: National Heart, Lung, and Blood [place]. National Institutes of Health. 2001: NIH Publication No. 01-3305. 2. An International Atherosclerosis Society position paper: global recommendations for the management of dyslipidemia: executive summary, Atherosclerosis. 2014: 232(2):410-413. Performed By: #### 2 4331-1 #### [facility] CLIA [id number] [address] [place] [address] [place] Cholesterol in VLDL [Mass/Vol] 15 mg/dL Normal <30 [facility] Comment on above: Order Comment: Mendy ascencio Type: BLOOD SPECIMEN Ordering Facility: [facility] Address: [address] [place] [address] Performed By: #### 2 4331-1 #### [facility] CLIA [id number] [address] [place] [address] [place] Cholesterol non HDL [Mass/Vol] 112 mg/dL Normal <130 [facility] Comment on above: Order Comment: Speci men Type: BLOOD SPECIMEN Ordering Facility: [facility] Address: [address] [place] [address] Result Comment: <130 mg/dL, Optimal 130-159 mg/dL, Near optimal/above optimal 160-189 mg/dL, Borderline high 190-219 mg/dL, High >219 mg/dL, Very high Secondary prevention optimal non HDL Cholesterol levels are recommended to be <100 mg/dL Performed By: #### 2 4331-1 #### [facility] CLIA [id number] [address] [place] [address] [place] Cholesterol.total/Cho lesterol in HDL [Mass ratio] 3.20 {ratio} Normal <5.10 [facility] Comment on above: Order Comment: Speci men Type: BLOOD SPECIMEN Ordering Facility: [facility] Address: [address] [place] [address] Performed By: #### 2 4331-1 #### [facility] CLIA [id number] [address] [place] [address] [place] FASTING TIME 14 hrs Normal [facility] Comment on above: Order Comment: Speci men Type: BLOOD SPECIMEN Ordering Facility: [facility] Address: [address] [place] [address] Performed By: #### 2 4331-1 #### [facility] CLIA [id number] [address] [place] [address] [place] Triglyceride [Mass/Vol] 75 mg/dL Normal <150 [facility] Comment on above: Order Comment: Speci men Type: BLOOD SPECIMEN Ordering Facility: [facility] Address: [address] [place] [address] Result Comment: <150 mg/dL, Normal 150-199 mg/dL, Borderline high 200-499 mg/dL, High >499 mg/dL, Very high Performed By: #### 2 4331-1 #### [facility] CLIA [id number] [address] [facility] [id number] [id number] [place] CNPNon 04-16-2024 CNPN Telephone (INTMWS) KESHAWNJOSE Hanks ([id number]) 1960 M Date Time Provider Department 04/16/24 BOONE ANDINO INTMWS During your visit today, we recorded the following information about you: Malena Man RN 04/16/2024 12:21 PM Signed ----- Message from Boone Andino MD sent at 04/15/2024 7:13 PM EST ----- Test results are okay but cholesterol creeping up. The 10-year heart disease risk score (Barak DK, et al., 2019) is: 8.1% He is a candidate to start cholesterol lowering medication to reduce risk of heart disease and stroke. Common side effects: GI, indigestion and muscle pains. If agreeable, start Pravastatin 20 mg at bedtime. Malena Man RN 04/16/2024 12:24 PM Signed Called pt and he is agreeable to start medication.Med pended Boone Andino MD 04/17/2024 10:07 AM Signed Fasting lipid panel in 3 months on medication. Malena Man RN 04/19/2024 10:05 AM Signed Called and left a voicemail for the patient to call back and ask for a nurse to receive the providers message. Malena Man RN 04/19/2024 10:11 AM Signed Pt returned the call and notified of RX and need for repeat labwork in July. Allergies As of Date: 04/16/2024 Noted Allergy Reaction PENICILLINS 05/26/2006 Date Reviewed: 03/25/2024 Reviewed by: Ladi Mccray MA - Fully Assessed Reason for Visit: Results [95] Prescription [Other] Primary Visit Diagnosis:Hypercholes terolemia [E78.00] Order(s):pravastatin (PRAVACHOL) 20 mg tabletTake 1 tablet by mouth daily at bedtime.Disp: 90 tabletRfl: 3 LIPID PANEL BASIC [SQLIPB] Order #: [id number] FUTURE Prescriptions as of 04/19/2024 - pravastatin (PRAVACHOL) 20 mg tablet Take 1 tablet by mouth daily at bedtime. - tamsulosin (FLOMAX) 0.4 mg Take 1 capsule by mouth daily at bedtime. - potassium chloride ER (KLOR-CON M20) 20 mEq tablet Take 1 tablet by mouth once daily as needed (edema). - gabapentin (NEURONTIN) 100 mg capsule 1 to 2 capsules at bedtime NEEDED. - furosemide (LASIX) 20 mg tablet Take 1 tablet by mouth once daily as needed (edema). - meloxicam (MOBIC) 15 mg tablet Take 1 tablet by mouth once daily as needed for pain. With food. - sildenafil (VIAGRA) 50 mg tablet Take 1 tablet by mouth once daily as needed. Problem List As Of Date 04/16/2024 Noted Resolved Essential hypertension, benign [I10] 07/03/2006 12/04/2020 Hypertensive heart disease without heart failur*07/03/2006 02/08/2016 Hypercholesterolemia [E78.00] 07/03/2006 Obesity, unspecified [E66.9] 07/03/2006 04/14/2023 Pain in joint, multiple sites [M25.50] 10/26/2008 07/03/2015 Cardiomyopathy (HCC) [I42.9] 02/14/2009 02/08/2016 Sleep apnea [G47.30] 02/14/2009 08/07/2017 DJD (degenerative joint disease) of cervical sp*11/18/2011 Depressive disorder [F32.A] 07/03/2015 04/18/2020 Erectile dysfunction [N52.9] 07/18/2016 Varicose veins of legs [I83.93] 08/07/2017 Degenerative tear of medial meniscus of right k*02/04/2018 BPH with obstruction/lower urinary tract sympto*11/18/2019 Positive colorectal cancer screening using [place]*08/08/2022 03/25/2024 Obesity, Class II, BMI 35-39.9 [E66.812] 04/14/2023 Special screening for malignant neoplasms, colo*06/30/2023 03/25/2024 Prescriptions ordered this encounter Disp Refills Start End PRAVASTATIN 20 MG TABLET 90 t* 3 04/17/2024 Route: ORAL Sig: Take 1 tablet by mouth daily at bedtime. Encounter Status:Closed by MALENA MAN on 04/19/24 Normal [facility] Comprehensive metabolic 2000 panelon 04-10-2024 Albumin [Mass/Vol] 4.0 g/dL Normal 3.9-4.9 [facility] Comment on above: Order Comment: Speci men Type: BLOOD SPECIMEN Ordering Facility: [facility] Address: [address] [place] [address] Performed By: #### 2 4323-8, 10047-4 #### [facility] CLIA [id number] [address] [place] [address] [place] ALP [Catalytic activity/Vol] 57 U/L Normal 38-113 [facility] Comment on above: Order Comment: Speci men Type: BLOOD SPECIMEN Ordering Facility: [facility] Address: [address] [place] [address] Performed By: #### 2 4323-8, 55510-1 #### [facility] CLIA [id number] [address] [place], [place] [id number] [place] ALT [Catalytic activity/Vol] 17 U/L Normal 10-54 [facility] Comment on above: Order Comment: Speci men Type: BLOOD SPECIMEN Ordering Facility: [facility] Address: [address] [place] [address] Performed By: #### 2 4323-8, 24605-1 #### [facility] CLIA [id number] [address] [place] [address] [place] Anion gap [Moles/Vol] 10 mmol/L Normal 8-15 [facility] Comment on above: Order Comment: Speci men Type: BLOOD SPECIMEN Ordering Facility: [facility] Address: [address] [place] [address] Performed By: #### 2 4323-8, 92977-3 #### [facility] CLIA [id number] [address] [place] [address] [place] AST [Catalytic activity/Vol] 13 U/L Low 14-40 [facility] Comment on above: Order Comment: Speci men Type: BLOOD SPECIMEN Ordering Facility: [facility] Address: [address] [place] [address] Performed By: #### 2 4323-8, 33316-3 #### [facility] CLIA [id number] [address] [place] [address] [place] Bilirubin [Mass/Vol] 0.7 mg/dL Normal 0.2-1.3 [facility] Comment on above: Order Comment: Speci men Type: BLOOD SPECIMEN Ordering Facility: [facility] Address: [address] [place] [address] Performed By: #### 2 4323-8, 60421-1 #### [facility] CLIA [id number] [address] [place] [address] [place] Calcium [Mass/Vol] 9.2 mg/dL Normal 8.5-10.2 [facility] Comment on above: Order Comment: Speci men Type: BLOOD SPECIMEN Ordering Facility: [facility] Address: [address] [place] [address] Performed By: #### 2 4323-8, 41065-3 #### [facility] CLIA [id number] [address] [place] [address] [place] Chloride [Moles/Vol] 106 mmol/L Normal 98-107 [facility] Comment on above: Order Comment: Speci men Type: BLOOD SPECIMEN Ordering Facility: [facility] Address: [address] [place] [address] Performed By: #### 2 4323-8, 79857-9 #### [facility] CLIA [id number] [address] [place] [address] [place] CO2 [Moles/Vol] 25 mmol/L Normal 22-30 [facility] Comment on above: Order Comment: Speci men Type: BLOOD SPECIMEN Ordering Facility: [facility] Address: [address] [place] [address] Performed By: #### 2 4323-8, 21697-5 #### [facility] CLIA [id number] [address] [place] [address] [place] Creatinine [Mass/Vol] 0.90 mg/dL Normal 0.73-1.22 [facility] Comment on above: Order Comment: Speci men Type: BLOOD SPECIMEN Ordering Facility: [facility] Address: [address] [place] [address] Performed By: #### 2 4323-8, 78597-8 #### [facility] CLIA [id number] [address] [place] [address] [place] Creatinine and Glomerular filtration rate.predicted panel (S/P/Bld) 97 mL/min/1.73m??? Normal >=60 [facility] Comment on above: Order Comment: Speci men Type: BLOOD SPECIMEN Ordering Facility: [facility] Address: [address] [place] [address] Result Comment: Amada mated Glomerular Filtration Rate (eGFR) is calculated using the 2020 CKD-EPI creatinine equation. This equation utilizes serum creatinine, sex, and age as parameters. The creatinine assay has traceable calibration to isotope dilution-mass spectrometry. Refer to KDIGO guidelines for clinical interpretation. In patients with unstable renal function, e.g. those with acute kidney injury, the eGFR may not accurately reflect actual GFR. Performed By: #### 2 4323-8, 71162-4 #### [facility] CLIA [id number] [address] [place] [address] [place] Glucose [Mass/Vol] 87 mg/dL Normal 74-99 [facility] Comment on above: Order Comment: Speci men Type: BLOOD SPECIMEN Ordering Facility: [facility] Address: [address] [place] [address] Result Comment: The [place] Diabetes Association (ADA) provides guidance for cutoff values for fasting glucose and random glucose. The ADA defines fasting as no caloric intake for at least 8 hours. Fasting plasma glucose results between 100 to 125 mg/dL indicate increased risk for diabetes (prediabetes). Fasting plasma glucose results greater than or equal to 126 mg/dL meet the criteria for diagnosis of diabetes. In the absence of unequivocal hyperglycemia, results should be confirmed by repeat testing. In a patient with classic symptoms of hyperglycemia or hyperglycemic crisis, random plasma glucose results greater than or equal to 200 mg/dL meet the criteria for diagnosis of diabetes. Reference: Standards of Medical Care in Diabetes 2016, [place] Diabetes Association. Diabetes Care. 2016.39(Suppl 1). Performed By: #### 2 4323-8, 65301-7 #### [facility] CLIA [id number] [address] [place] [address] [place] Potassium [Moles/Vol] 4.3 mmol/L Normal 3.7-5.1 [facility] Comment on above: Order Comment: Speci men Type: BLOOD SPECIMEN Ordering Facility: [facility] Address: [address] [place] [address] Performed By: #### 2 4323-8, 63548-2 #### [facility] CLIA [id number] [address] [place] [address] [place] Protein [Mass/Vol] 6.5 g/dL Normal 6.3-8.0 [facility] Comment on above: Order Comment: Speci men Type: BLOOD SPECIMEN Ordering Facility: [facility] Address: [address] [place] [address] Performed By: #### 2 4323-8, 19983-1 #### [facility] CLIA [id number] [address] [place] [address] [place] Sodium [Moles/Vol] 141 mmol/L Normal 136-144 [facility] Comment on above: Order Comment: Speci men Type: BLOOD SPECIMEN Ordering Facility: [facility] Address: [address] [place] [address] Performed By: #### 2 4323-8, 83057-5 #### [facility] CLIA [id number] [address] [place] [address] [place] Urea nitrogen [Mass/Vol] 14 mg/dL Normal 9-24 [facility] Comment on above: Order Comment: Speci men Type: BLOOD SPECIMEN Ordering Facility: [facility] Address: [address] [place] [address] Performed By: #### 2 4323-8, 70533-0 #### [facility] CLIA [id number] [address] [place] [address] [place] Lipid 1996 panelon 4 Cholesterol [Mass/Vol] 195 mg/dL Normal <200 [facility] Comment on above: Order Comment: Speci men Type: BLOOD SPECIMEN Ordering Facility: [facility] Address: [address] [place] [address] Result Comment: <200 mg/dL, Desirable 200-239 mg/dL, Borderline high >239 mg/dL, High Performed By: #### 2 4323-8, 83047-9 #### [facility] CLIA [id number] [address] [place] [address] [place] Cholesterol in HDL [Mass/Vol] 52 mg/dL Normal >39 [facility] Comment on above: Order Comment: Speci men Type: BLOOD SPECIMEN Ordering Facility: [facility] Address: [address] [place] [address] Result Comment: 40-5 9 mg/dL, Acceptable >59 mg/dL, High: Negative risk factor for coronary heart disease <40 mg/dL, Low: Positive risk factor for coronary heart disease Performed By: #### 2 4323-8, 42407-0 #### [facility] CLIA [id number] [address] [place] [address] [place] Cholesterol in LDL [Mass/Vol] 130 mg/dL High <100 [facility] Comment on above: Order Comment: Mendy men Type: BLOOD SPECIMEN Ordering Facility: [facility] Address: [address] [place] [address] Result Comment: <100 mg/dL, Optimal 100-129 mg/dL, Near optimal/above optimal 130-159 mg/dL, Borderline high 160-189 mg/dL, High >189 mg/dL, Very high Secondary prevention optimal LDL Cholesterol levels are recommended to be < 70 mg/dL Performed By: #### 2 4323-8, 03189-2 #### [facility] CLIA [id number] [address] [place] [address] [place] [facility] Cholesterol in LDL/Cholesterol in HDL [Mass ratio] 2.50 {ratio} Normal <2.54 [facility] Comment on above: Order Comment: Mendy ascencio Type: BLOOD SPECIMEN Ordering Facility: [facility] Address: [address] [place] [address] Result Comment: Refe rence: 1. National Cholesterol Education Program ATP III Guideline At-A-Glance Quick Desk Reference: National Heart, Lung, and Blood [place]. National Institutes of Health. 2001: NIH Publication No. 01-3305. 2. An International Atherosclerosis Society position paper: global recommendations for the management of dyslipidemia: executive summary, Atherosclerosis. 2014: 232(2):410-413. Performed By: #### 2 4323-8, 66551-7 #### [facility] CLIA [id number] [address] [place] [address] [place] Cholesterol in VLDL [Mass/Vol] 13 mg/dL Normal <30 [facility] Comment on above: Order Comment: Mendy men Type: BLOOD SPECIMEN Ordering Facility: [facility] Address: [address] [place] [address] Performed By: #### 2 4323-8, 10340-7 #### [facility] CLIA [id number] [address] [place] [address] [place] Cholesterol non HDL [Mass/Vol] 143 mg/dL High <130 [facility] Comment on above: Order Comment: Speci men Type: BLOOD SPECIMEN Ordering Facility: [facility] Address: [address] [place] [address] Result Comment: <130 mg/dL, Optimal 130-159 mg/dL, Near optimal/above optimal 160-189 mg/dL, Borderline high 190-219 mg/dL, High >219 mg/dL, Very high Secondary prevention optimal non HDL Cholesterol levels are recommended to be <100 mg/dL Performed By: #### 2 4323-8, 09270-8 #### [facility] CLIA [id number] [address] [place] [address] [place] Cholesterol.total/Cho lesterol in HDL [Mass ratio] 3.75 {ratio} Normal <5.10 [facility] Comment on above: Order Comment: Speci men Type: BLOOD SPECIMEN Ordering Facility: [facility] Address: [address] [place] [address] Performed By: #### 2 4323-8, 63817-9 #### [facility] CLIA [id number] [address] [place] [address] [place] FASTING TIME 12 hrs Normal [facility] Comment on above: Order Comment: Speci men Type: BLOOD SPECIMEN Ordering Facility: [facility] Address: [address] [place] [id number] Performed By: #### 2 4323-8, 05812-1 #### [facility] CLIA [id number] [address] [place] [address] [place] Triglyceride [Mass/Vol] 66 mg/dL Normal <150 [facility] Comment on above: Order Comment: Speci men Type: BLOOD SPECIMEN Ordering Facility: [facility] Address: [address] [facility] [place] [address] Result Comment: <150 mg/dL, Normal 150-199 mg/dL, Borderline high 200-499 mg/dL, High >499 mg/dL, Very high Performed By: #### 2 4323-8, 07899-5 #### [facility] CLIA [id number] [address] [place] [address] [id number] OF [facility] CNOVon 03-25-2024 CNOV Office Visit (INTMWS ) JOSE LIAO ([id number]) 1960 M Date Time Provider Department 03/25/24 6:00 PM BOONE ANDINO INTMWS During your visit today, we recorded the following information about you: Temperature Pulse Respiration Blood pressure 99.1 degrees 99/minute 16/minute 115/75 Weight 125.6 kg Boone Andino MD 03/25/2024 7:05 PM Signed This note was created using [employer]. Subjective Patient presents with: Follow Up For: Medication refills Jose Liao is a 63 year old male. He felt well and denied needing a physical. He mentioned feeling his sinuses were stuffed for one month with hearing muffled. He had not tried any medication for his symptoms. His edema was controlled with furosemide as needed. ED was controlled. Cervicalgia was stable. His knee was stable, and he had not needed an injection from Dr. Sosa for over a year. Colonoscopy was positive for polyps and follow up with 5 years recommended. He had no exercise routine, but his work was physical. He's had some weight regain since last year. Review of Systems Constitutional: Negative for chills, fatigue and fever. HENT: Positive for congestion and hearing loss. Negative for nosebleeds, sinus pain, sneezing and sore throat. Eyes: Negative for visual disturbance. Respiratory: Negative for cough, chest tightness and shortness of breath. Cardiovascular: Positive for leg swelling. Negative for chest pain and palpitations. Gastrointestinal: Negative for abdominal pain, constipation and diarrhea. 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 Positive Colorectal Cancer Screening Using Cologuard Test Obesity, Class II, Bmi 35-39.9 Special Screening for Malignant Neoplasms, Colon PAST SURGICAL HISTORY Procedure Laterality Date COLONOSCOPY SCREENING 06/30/2023 next colonoscopy due in 5 years LEFT HEART CATH,PERCUTANEOUS 02/10/2009 Cardiac cath, L heart RIGHT HEART CATHETERIZATION 02/10/2009 Cardiac cath, R heart TONSILLECTOMY PRIMARY/SECONDARY Tonsillectomy VASCULAR SURGERY PROCEDURE Social History Tobacco Use Smoking status: Never Smokeless tobacco: Never Substance Use Topics Alcohol use: Yes Alcohol/week: 2.0 standard drinks of alcohol Types: 2 Shots of liquor per week Drug use: No FAMILY HISTORY Problem Relation Age of Onset Arthritis Father other (AAA) Father COPD Mother Hypertension Mother Cancer Mother Lung cancer Cancer Brother Liver cancer,IVDA related? Current Outpatient Medications Medication Sig sildenafil (VIAGRA) 50 mg tablet Take 1 tablet by mouth once daily as needed. tamsulosin (FLOMAX) 0.4 mg Take 1 capsule by mouth daily at bedtime. potassium chloride ER (KLOR-CON M20) 20 mEq tablet Take 1 tablet by mouth once daily as needed (edema). gabapentin (NEURONTIN) 100 mg capsule 1 to 2 capsules at bedtime NEEDED. furosemide (LASIX) 20 mg tablet Take 1 tablet by mouth once daily as needed (edema). meloxicam (MOBIC) 15 mg tablet Take 1 tablet by mouth once daily as needed for pain. With food. No current facility-administered medications for this visit. Objective BP 115/75 Pulse 99 Temp 37.3 ?C (99.1 ?F) (Temporal) Resp 16 Wt 125.6 kg (276 lb 14.4 oz) SpO2 95% BMI 38.62 kg/m? Physical Exam Constitutional: General: He is not in acute distress. Appearance: He is not ill-appearing. HENT: Head: Normocephalic. Right Ear: External ear normal. There is impacted cerumen. Left Ear: Tympanic membrane, ear canal and external ear normal. Nose: Congestion present. No rhinorrhea. Mouth/Throat: Mouth: Mucous membranes are moist. Pharynx: Oropharynx is clear. No oropharyngeal exudate or posterior oropharyngeal erythema. Eyes: Conjunctiva/sclera: Conjunctivae normal. Cardiovascular: Rate and Rhythm: Normal rate and regular rhythm. Heart sounds: No murmur heard. No gallop. Pulmonary: Breath sounds: Normal breath sounds. Abdominal: Palpations: Abdomen is soft. Tenderness: There is no abdominal tenderness. Musculoskeletal: General: No tenderness. Right lower leg: No edema. Left lower leg: No edema. Lymphadenopathy: Cervical: No cervical adenopathy. Neurological: Mental Status: He is alert. Assessment and Plan 1. Obesity, Class II, BMI 35-39.9 - ICD9: 278.00, ICD10: E66.812 (primary diagnosis) - Weight loss recommended. 2. BPH with obstruction/lower urinary tract symptoms - ICD9: 600.01, 599.69, ICD10: N40.1, N13.8 - Controlled. - TAMSULOSIN 0.4 MG CAPSULE 3. Varicose veins of both lower extremities, unspecified whether complicated - ICD9: 454.9, ICD10: I83.93 - Continue compressions and PRN diuretic (more content not included)... Normal [facility] 12 Lead EKGon 08-06-2021 12 Lead EKG [facility] [address] [place] [address] 12 Lead EKG 08/06/21 1616 MR#: [id number] Acct: [id number] Name: JOSE LIAO Rep #: [id number] : 1960 60 From: Mauricio Tong MD Attending Dr: Dr. Macho Clinton MD Status: PRE CLI Ordering Dr: Macho Clinton MD Date: 08/06/21 Location: [facility] Sex: M C Admitted: Test Reason : PRE OP Blood Pressure : / mmHG Vent. Rate : 080 BPM Atrial Rate : 080 BPM P-R Int : 198 ms QRS Dur : 112 ms QT Int : 350 ms P-R-T Axes : 039 -29 016 degrees QTc Int : 403 ms Normal sinus rhythm Normal ECG Confirmed by MAURICIO TONG MD ([id number]), editorial specialist GOSIA ALCOCER ([id number]) on 08/09/2021 1:17:22 PM Referred By: Macho Clinton Confirmed By:MAURICIO TONG MD 08/09/21 1317 Date Mauricio Tong MD CC: Dr. Macho Clinton MD; Dr. Boone Andino MD Signed Normal [facility] - Microbiology an d Antimicrobial susceptibilityon 08-04-2021 SARS-CoV-2 (COVID-19) RNA WINSTON+probe Ql (Unsp spec) Not detected [facility] Work Phone: No Panel Informationon 08-04 Influenza Types A,B Rapid (Clinic) Not detected [facility] Work Phone: Urgent Care Visit Reporton 0 08-04-2021 Urgent Care Visit Report [facility] [address] [place] [address] [address] [place] [address] OFFICE VISIT Date of Service: 08/04/21 MR#: [id number] Acct: [id number] Name: JOSE LIAO Rep #: [id number] : 1960 Provider: PEE Maldonado Age/Sex: 60/M Location: [facility] Status: Signed Intake Vital Signs 08/04/21 08:47 BP 130/86 H Blood Pressure Location Lt brachial Position Sitting Respiration 16 Pulse 105 H Pulse Source Monitor Temp 98.6 F Temp Source Temporal Pulse Oximetry (%) 96 Oxygen Delivery Method room air Intake Visit Reasons: COVID TEST FOR SURGERY Allergies Penicillins [PCN] Allergy (Verified 08/04/21 08:49) Unknown Medications bupropion HCl [Wellbutrin Sr] 150 mg PO BID 08/06/17 [History Confirmed 08/04/21] tamsulosin 0.4 mg PO DAILY #30 cap 08/06/17 [Rx Confirmed 08/04/21] PFSH Social History Smoking Status: Never smoker HPI HPI Details: JOSE LIAO, is a 60 M who presents to the office today for request of a Covid PCR test prior to surgery. Patient denies any current symptoms. ROS Const Constitutional: Positive for other (6 system ROS completed with pertinent findings in the HPI otherwise normal.) Exam Const General: cooperative and healthy appearing HENNV Head: normocephalic and atraumatic Ears: hearing grossly normal bilaterally Nose: external nose normal Face and sinus: normal facial exam and face symmetric Mouth: oral mucosae normal Throat: posterior oropharynx normal Eyes General: appearance normal, both eyes and all related structures Resp Effort Inspection: normal respiratory effort Auscultation: Bilateral: Clear to Auscultation Cardio Rate: regular rate Rhythm: regular rhythm Skin General: no rashes or lesions noted Neuro General: patient alert and CN's II-XI intact bilaterally Psych Appearance: grossly normal Mental Status: mental status grossly normal Results POC YRN Covid FluAB PCR POC Yrn Covid PCR Not Detected Last Edit by Jacqueline Varma RN on 08/04/21 09:07 POC YRN FLU NOT DETECTED FLU A B Last Edit by Jacqueline Varma RN on 08/04/21 09:07 Coding Level of Care Code Off vis,new,level 2 Diagnoses Encounter for screening for COVID-19 Z11.52 Assessment and Plan Assessment and Plan (1) Encounter for screening for COVID-19: Status: Acute Plan - PEE Ca: Patient tested negative for Covid in the office today. Patient verbalized understanding and agreement with all the above. Plan Details Other Orders: Orders: POC Yrn Covid FLUAB PCR Today 08/04/21911 Date Kishan GLASGOW Cosigner Signature: Date (if applicable) CC: Normal [facility] Basic Metabolic Profile (BMP )on 08-02-2021 BUN/CRE 18.2 RATIO Normal 10-20 [facility] Comment on above: Performed By: #### L 500.2500, L100.0500 #### [facility] [address] [place], [address] CA,Total 8.8 mg/dL Normal 8.5-10.1 [facility] Comment on above: Performed By: #### L 500.2500, L100.0500 #### [facility] [address] [place], [address] Chloride [Moles/Vol] 107 mmol/L Normal 98-107 [facility] Comment on above: Performed By: #### L 500.2500, L100.0500 #### [facility] [address] [place], [address] CO2 [Moles/Vol] 31.0 mmol/L Normal 21.0-32.0 [facility] Comment on above: Performed By: #### L 500.2500, L100.0500 #### [facility] [address] [place], [address] Creatinine [Mass/Vol] 1.10 mg/dL Normal 0.70-1.30 [facility] Comment on above: Result Comment: The validity of the calculated GFR GFRAA in patients over 70 years has not been determined. Clinical correlation is essential. Performed By: #### L 500.2500, L100.0500 #### [facility] [address] [place], [address] EST GFR - AA 88 mL/min Normal >60 [facility] Comment on above: Result Comment: Afri can Prydeinig GFR Calc Performed By: #### L 500.2500, L100.0500 #### [facility] [address] [place], [address] GAP 2 Low 5-15 [facility] Comment on above: Performed By: #### L 500.2500, L100.0500 #### [facility] [address] [place], [address] GFR/1.73 sq M.predicted among non-blacks MDRD (S/P/Bld) [Vol rate/Area] 73 mL/min/{1.73_m2} Normal >60 [facility] Comment on above: Result Comment: Non- GFR Calc Performed By: #### L 500.2500, L100.0500 #### [facility] [address] [place], [address] Glucose [Mass/Vol] 84 mg/dL Normal 74-106 [facility] Comment on above: Performed By: #### L 500.2500, L100.0500 #### [facility] [address] [place], [address] Potassium [Moles/Vol] 4.5 mmol/L Normal 3.5-5.1 [facility] Comment on above: Performed By: #### L 500.2500, L100.0500 #### [facility] [address] [place], [address] Sodium [Moles/Vol] 140 mmol/L Normal 136-145 [facility] Comment on above: Performed By: #### L 500.2500, L100.0500 #### [facility] [address] [place], [address] Urea nitrogen [Mass/Vol] 20 mg/dL High 7-18 [facility] Comment on above: Performed By: #### L 500.2500, L100.0500 #### [facility] [address] [place], [address] Basophil percentageon 2021 Chloride [Moles/Vol] 107 mmol/L 98-107 [facility] Work Phone: Glucose [Mass/Vol] 84 mg/dL 74-106 [facility] Work Phone: Potassium [Moles/Vol] 4.5 mmol/L 3.5-5.1 [facility] Work Phone: Sodium [Moles/Vol] 140 mmol/L 136-145 [facility] Work Phone: WBC (Bld) [#/Vol] 5.7 10*3/uL 4.4-11.0 [facility] Work Phone: Blood erythrocytes count (nu mber/volume)on 08-02-2021 RBC (Bld) [#/Vol] 4.96 10*6/uL 4.6-6.2 [facility] Work Phone: Blood hemoglobin measurement (mass/volume)on 08-02-2021 Hemoglobin (Bld) [Mass/Vol] 14.2 g/dL 13.0-16.5 [facility] Work Phone: Blood platelet mean volumeon 08-02-2021 Platelet mean volume (Bld) [Entitic vol] 9.5 fL 6.2-12.0 [facility] Work Phone: CBC-Complete Blood Cnt No Di ffon 08-02-2021 Erythrocyte distribution width (RBC) [Ratio] 13.7 % Normal 11.6-14.6 [facility] Comment on above: Performed By: #### L 500.2500, L100.0500 #### [facility] [address] [place], [address] Hematocrit (Bld) [Volume fraction] 43.1 % Normal 40-54 [facility] Comment on above: Performed By: #### L 500.2500, L100.0500 #### [facility] [address] [place], [address] Hemoglobin (Bld) [Mass/Vol] 14.2 g/dL Normal 13.0-16.5 [facility] Comment on above: Performed By: #### L 500.2500, L100.0500 #### [facility] [address] [place], [address] MCH (RBC) [Entitic mass] 28.6 pg Normal 27.0-32.0 [facility] Comment on above: Performed By: #### L 500.2500, L100.0500 #### [facility] [address] [place], [address] MCHC (RBC) [Mass/Vol] 32.9 g/dL Normal 32-36 [facility] Comment on above: Performed By: #### L 500.2500, L100.0500 #### [facility] [address] [place], [address] MCV (RBC) [Entitic vol] 86.9 fL Normal 80-94 [facility] Comment on above: Performed By: #### L 500.2500, L100.0500 #### [facility] [address] [place], [address] Platelet mean volume (Bld) [Entitic vol] 9.5 fL Normal 6.2-12.0 [facility] Comment on above: Performed By: #### L 500.2500, L100.0500 #### [facility] [address] [place], [address] Platelets (Bld) [#/Vol] 234 10*3/uL Normal 150-450 [facility] Comment on above: Performed By: #### L 500.2500, L100.0500 #### [facility] [address] [place], [address] RBC (Bld) [#/Vol] 4.96 10*6/uL Normal 4.6-6.2 [facility] Comment on above: Performed By: #### L 500.2500, L100.0500 #### [facility] [address] [place], [address] RDW SD 43.1 fl Normal 35.1-43.9 [facility] Comment on above: Performed By: #### L 500.2500, L100.0500 #### [facility] [address] [place], [address] WBC (Bld) [#/Vol] 5.7 10*3/uL Normal 4.4-11.0 [facility] Comment on above: Performed By: #### L 500.2500, L100.0500 #### [facility] [address] [facility] [place], [address] Determination of erythrocyte mean corpuscular volume (MCV)on 08-02-2021 MCV (RBC) [Entitic vol] 86.9 fL 80-94 [facility] Work Phone: Hematocrit Auto (Bld) [Volum e fraction]on 08-02-2021 Hematocrit (Bld) [Volume fraction] 43.1 % 40-54 [facility] Work Phone: Laboratory - Chemistry and C hemistry - challengeon 08-02-2021 CO2 [Moles/Vol] 31.0 mmol/L 21.0-32.0 [facility] Work Phone: Urea nitrogen/Creatinine [Mass ratio] 18.2 mg/mg 10-20 [facility] Work Phone: Laboratory - Hematology and Cell countson 08-02-2021 Erythrocyte distribution width (RBC) [Entitic vol] 43.1 fL 35.1-43.9 [facility] Work Phone: Erythrocyte distribution width (RBC) [Ratio] 13.7 % 11.6-14.6 [facility] Work Phone: MCH (RBC) [Entitic mass] 28.6 pg 27.0-32.0 [facility] Work Phone: MCHC Auto (RBC) [Mass/Vol]on 08-02-2021 MCHC (RBC) [Mass/Vol] 32.9 g/dL 32-36 [facility] Work Phone: No Panel Informationon 08-02 Estimated GFR (MDRD) Amer 88 mL/min >60 [facility] Work Phone: Comment on above: GFR Calc Estimated GFR (MDRD) Non-Af Amer 73 mL/min >60 [facility] Work Phone: Comment on above: Non- GFR Calc Platelets bldon 08-02-2021 Platelets (Bld) [#/Vol] 234 10*3/uL 150-450 [facility] Work Phone: Serum or plasma calcium jaret urement (mass/volume)on 08-02-2021 Calcium [Mass/Vol] 8.8 mg/dL 8.5-10.1 [facility] Work Phone: Serum or plasma creatinine m easurement (mass/volume)on 08-02-2021 Creatinine [Mass/Vol] 1.10 mg/dL 0.70-1.30 [facility] Work Phone: Comment on above: The validity of the calculated GFR & GFRAA in patients over 70 years has not been determined. Clinical correlation is essential. Serum or plasma urea nitroge n measurement (mass/volume)on 08-02-2021 Urea nitrogen [Mass/Vol] 20 mg/dL 7-18 [facility] Work Phone: Thin prep Papanicolaou smear with manual screeningon 08-02-2021 Thin prep Papanicolaou smear with manual screening 2 5-15 [facility] Work Phone: Urgent Care Visit Reporton 1 07-03-2020 Urgent Care Visit Report [facility] [address] [place] [address] OFFICE VISIT Date of Service: 05/03/21 MR#: [id number] Acct: [id number] Name: JOSE LIAO Rep #: [id number] : 1960 Provider: DANIEL szymanski Age/Sex: 60/M Location: [facility] Status: Signed Intake Vital Signs 05/03/21 08:45 Height 5 ft 10 in Weight: 305 lb BMI 43.7 BP 142/98 H Blood Pressure Location Lt brachial Position Sitting Respiration 16 Pulse 98 Pulse Source Monitor Temp 98.3 F Temp Source Temporal Pulse Oximetry (%) 96 Oxygen Delivery Method room air Intake Visit Reasons: CONGESTION, SORE THROAT, COUGH-COVID TEST Allergies Penicillins [PCN] Allergy (Verified 05/03/21 08:46) Unknown Medications bupropion HCl [Wellbutrin Sr] 150 mg PO BID 08/06/17 [History Confirmed 05/03/21] tamsulosin 0.4 mg PO DAILY #30 cap 08/06/17 [Rx Confirmed 05/03/21] azithromycin 250 mg tablet See Rx Instructions PO .COMPLEX #6 tab 05/03/21 [Rx Confirmed 05/03/21] PFSH Social History Smoking Status: Never smoker HPI HPI Details: JOSE LIAO, is a 60 M who presents to the office today for cough, fatigue, chills, congestion. Patient states that symptoms started on Friday, which would be 4 days ago. ROS Const Constitutional: Positive for chills and fatigue; No fever(s) or headache(s) Eyes Eyes: No eye pain ENT ENT: Positive for nasal congestion, nasal discharge and sore throat; No ear or mastoid pain, sinus pressure or headache(s) Resp Respiratory: Positive for cough and chest congestion; No shortness of breath Cardio Cardiology: No chest pain at rest or shortness of breath Gastro GI: No abdominal pain, diarrhea or vomiting Musc Musculoskeletal: No other (aches) Neuro Neurology: No headache(s) Endo Endocrine: Positive for fatigue Exam Const General: cooperative, healthy appearing, comfortable and no acute distress Nutritional Appearance: average body habitus, well nourished and obese Orientation: alert, awake and oriented x3 [facility] Head: normal to inspection Ears: hearing grossly normal bilaterally and TM's normal bilaterally Nose: external nose normal, nasal mucous membranes and turbinates normal and nasal discharge clear Eyes Eyelids: eyelids normal Conjunctivae: conjunctivae normal Sclera: sclerae normal Cornea: corneas normal Neck Lymphatic: no lymphadenopathy noted Resp Effort Inspection: normal respiratory effort, able to speak in complete sentences, symmetric chest movement and cough Quality of cough: wet Auscultation: Bilateral: Clear to Auscultation Cardio Rate: regular rate Rhythm: regular rhythm Heart Sounds: S1 normal and S2 normal Skin General: no rashes or lesions noted Neuro General: patient alert, patient awake and patient oriented x3 Cognition: normal cognition Speech: speech normal Gait: normal gait Psych Affect: normal affect Speech and Movement: speech and movement normal Attitude: cooperative Thought Process: normal Results POC JESSICA CoV-2 PCR POC JESSICA CoV-2 PCR Not Detected Last Edit by Jacqueline Varma RN on 05/03/21 08:47 Negative for Influenza A and B Coding Level of Care Code Off vis,new,level 3 Diagnoses Cough R05.9 URI (upper respiratory infection) J06.9 Encounter for screening for COVID-19 Z11.52 Assessment and Plan Assessment and Plan (1) Cough: Status: Acute (2) URI (upper respiratory infection): Status: Acute (3) Encounter for screening for COVID-19: Status: Acute Orders: Orders: POC Rapid JESSICA Cov-2 PCR Today R05.9 Plan - LUIZ MinorC: Recommend supportive care, rest, increase fluids, Mucinex as needed. Covid test and flu test are both negative. Since today is day 4 of illness, explained to patient that etiology is likely viral, but if on day 7 or 8 patient is getting worse, or not better, then I recommend that he start an antibiotic for upper respiratory infection. If he can start antibiotic then instructed to complete it. Follow-up if no improvement within 2 to 3 days of starting antibiotic, or for new or worsening symptoms Plan Details Other Medications: New: azithromycin (Zithromax Z-Hima) For 250 mg dose pack: take 500 mg today (day 1), then 250 mg for 4 days (days 2-5) PO 6 tabs 0RF 05/03/21 0902 Date Carly SANCHEZ Cosigner Signature: Date (if applicable) CC: Normal [facility] Vital Signs Date Time Vital Sign Value Performing Clinician Faci jessica 02-10-2025 18:37-0400 Body height 177.2 cm Boone Andino MD Work Phone: [facility] 02-10-2025 18:37-0400 Body mass index (BMI) [Ratio] 38.68 kg/m2 Boone Andino MD Work Phone: [facility] 02-10-2025 18:37-0400 Body temperature 97.9 [degF] Boone Andino MD Work Phone: [facility] 02-10-2025 18:37-0400 Body weight 121.4 kg Boone Andino MD Work Phone: [facility] 02-10-2025 18:37-0400 Diastolic blood pressure 80 mm[Hg] Boone Andino MD Work Phone: [facility] 02-10-2025 18:37-0400 Heart rate 81 /min Boone Andino MD Work Phone: [facility] 02-10-2025 18:37-0400 Respiratory rate 14 /min Boone Andino MD Work Phone: [facility] 02-10-2025 18:37-0400 SaO2% (BldA) [Mass fraction] 97 % Boone Andino MD Work Phone: [facility] 02-10-2025 18:37-0400 Systolic blood pressure 124 mm[Hg] Boone Andino MD Work Phone: [facility] 12-16-2024 18:51-0400 Body mass index (BMI) [Ratio] 39.82 kg/m2 Boone Andino MD Work Phone: [facility] 12-16-2024 18:51-0400 Body weight 125 kg Boone Andino MD Work Phone: [facility] 12-16-2024 18:51-0400 Diastolic blood pressure 80 mm[Hg] Boone Andino MD Work Phone: [facility] 12-16-2024 18:51-0400 Heart rate 73 /min Boone Andino MD Work Phone: [facility] 12-16-2024 18:51-0400 SaO2% (BldA) [Mass fraction] 97 % Boone Andino MD Work Phone: [facility] 12-16-2024 18:51-0400 Systolic blood pressure 128 mm[Hg] Booen Andino MD Work Phone: [facility] 11-15-2024 19:22-0400 Body height 177.2 cm Boone Andino MD Work Phone: [facility] 11-15-2024 19:22-0400 Body mass index (BMI) [Ratio] 41.45 kg/m2 Boone Andino MD Work Phone: [facility] 11-15-2024 19:22-0400 Body weight 130.1 kg Boone Andino MD Work Phone: [facility] 11-15-2024 19:22-0400 Diastolic blood pressure 74 mm[Hg] Boone Andino MD Work Phone: [facility] 11-15-2024 19:22-0400 Heart rate 96 /min Boone Andino MD Work Phone: [facility] 11-15-2024 19:22-0400 Respiratory rate 18 /min Boone Andino MD Work Phone: [facility] 11-15-2024 19:22-0400 Systolic blood pressure 120 mm[Hg] Boone Andino MD Work Phone: [facility] 03-25-2024 17:48-0400 Body mass index (BMI) [Ratio] 38.62 kg/m2 Boone Andino MD Work Phone: [facility] 03-25-2024 17:48-0400 Body temperature 99.1 [degF] Boone Andino MD Work Phone: [facility] 03-25-2024 17:48-0400 Body weight 125.6 kg Boone Andino MD Work Phone: [facility] 03-25-2024 17:48-0400 Diastolic blood pressure 75 mm[Hg] Boone Andino MD Work Phone: [facility] 03-25-2024 17:48-0400 Heart rate 99 /min Boone Andino MD Work Phone: [facility] 03-25-2024 17:48-0400 Respiratory rate 16 /min Boone Andino MD Work Phone: [facility] 03-25-2024 17:48-0400 SaO2% (BldA) [Mass fraction] 95 % Boone Andino MD Work Phone: [facility] 03-25-2024 17:48-0400 Systolic blood pressure 115 mm[Hg] Boone Andino MD Work Phone: [facility] 12-08-2023 19:18-0400 Body mass index (BMI) [Ratio] 39.11 kg/m2 Ginger Athy PA-C Work Phone: [facility] 12-08-2023 19:18-0400 Body temperature 98.1 [degF] Ginger Athy PA-C Work Phone: [facility] 12-08-2023 19:18-0400 Body weight 127.2 kg Ginger Athy PA-C Work Phone: [facility] 12-08-2023 19:18-0400 Diastolic blood pressure 78 mm[Hg] Ginger Athy PA-C Work Phone: [facility] 12-08-2023 19:18-0400 Heart rate 94 /min Ginger Athy PA-C Work Phone: [facility] 12-08-2023 19:18-0400 Respiratory rate 16 /min Ginger Athy PA-C Work Phone: [facility] 12-08-2023 19:18-0400 SaO2% (BldA) [Mass fraction] 96 % Ginger Athy PA-C Work Phone: [facility] 12-08-2023 19:18-0400 Systolic blood pressure 122 mm[Hg] Ginger Athy PA-C Work Phone: [facility] 04-14-2023 19:45-0500 Diastolic blood pressure 70 mm[Hg] Boone Andino MD Work Phone: [facility] 04-14-2023 19:45-0500 Systolic blood pressure 118 mm[Hg] Boone Andino MD Work Phone: [facility] 04-14-2023 19:09-0500 Body height 180.3 cm Boone Andino MD Work Phone: [facility] 04-14-2023 19:09-0500 Body weight 122.47 kg Boone Andino MD Work Phone: [facility] 04-14-2023 19:09-0500 Heart rate 92 /min Boone Andino MD Work Phone: [facility] 04-14-2023 19:09-0500 Respiratory rate 20 /min Boone Andino MD Work Phone: [facility] 06-22-2022 08:44-0500 Body temperature 98.4 [degF] Wade Juares YARN 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 Work Phone: [facility] 06-22-2022 08:44-0500 Body weight 136.44 kg Wade Juares YARN 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 Work Phone: [facility] 06-22-2022 08:44-0500 Diastolic blood pressure 82 mm[Hg] Wade Juares YARN 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 Work Phone: [facility] 06-22-2022 08:44-0500 Heart rate 120 /min Wade Pendguillaume YARN 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 Work Phone: [facility] 06-22-2022 08:44-0500 Respiratory rate 20 /min Wade Pendleaneta YARN 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 Work Phone: [facility] 06-22-2022 08:44-0500 SaO2% (BldA) [Mass fraction] 96 % Wade Bernardoleaneta YARN 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 Work Phone: [facility] 06-22-2022 08:44-0500 Systolic blood pressure 128 mm[Hg] Wade Juares YARN 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 Work Phone: [facility] 02-06-2022 15:53-0400 Body height 181 cm Abby Older YARN 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 Work Phone: [facility] 02-06-2022 15:53-0400 Body weight 131.54 kg Abby Older YARN 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 Work Phone: [facility] 02-06-2022 15:53-0400 Diastolic blood pressure 82 mm[Hg] Abby Older YARN 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 Work Phone: [facility] 02-06-2022 15:53-0400 Heart rate 66 /min Abby Older YARN 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 Work Phone: [facility] 02-06-2022 15:53-0400 Respiratory rate 20 /min Abby Older YARN 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 Work Phone: [facility] 02-06-2022 15:53-0400 Systolic blood pressure 134 mm[Hg] Abby Older YARN 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 Work Phone: [facility] 08-04-2021 07:47-0500 Body temperature 98.6 [degF] Dr. Boone Andino Work Phone: [facility] Work Phone: 08-04-2021 07:47-0500 Diastolic blood pressure 86 mm[Hg] Dr. Boone Andino Work Phone: [facility] Work Phone: 08-04-2021 07:47-0500 Heart rate 105 /min Dr. Boone Andino Work Phone: [facility] Work Phone: 08-04-2021 07:47-0500 Respiratory rate 16 /min Dr. Boone Andino Work Phone: [facility] Work Phone: 08-04-2021 07:47-0500 SaO2% (BldA) [Mass fraction] 96 % Dr. Boone Andino Work Phone: [facility] Work Phone: 08-04-2021 07:47-0500 Systolic blood pressure 130 mm[Hg] Dr. Boone Andino Work Phone: [facility] Work Phone: Encounters Encounter Date Encounter Type Care Provider Facility Start: 02-16-2025 End: 02-17-2025 Refill Boone Andino MD Work Phone: [facility] Comment on above: Refill Request Start: 02-10-2025 End: 02-10-2025 Patient encounter procedure Boone Andino MD Work Phone: [facility] Comment on above: Obesity, Class II, B LA 35-39.9 (Primary Dx) Start: 02-10-2025 End: 02-10-2025 ambulatory BOONE ANDINO Facility:[facility] Start: 12-16-2024 End: 12-16-2024 Patient encounter procedure Boone Andino MD Work Phone: [facility] Comment on above: Obesity, Class II, B LA 35-39.9 (Primary Dx); Viral upper respiratory tract infection; Primary osteoarthritis of both knees Start: 12-16-2024 End: 12-16-2024 ambulatory BOONE ANDINO Facility:[facility] Start: 12-13-2024 End: 12-14-2024 Refill Boone Andino MD Work Phone: [facility] Comment on above: Refill Request Start: 11-16-2024 End: 11-19-2024 Telephone encounter Boone Andino MD Work Phone: [facility] Comment on above: Insurance Authorizat ion Start: 11-15-2024 End: 11-15-2024 Patient encounter procedure Boone Andino MD Work Phone: [facility] Comment on above: Class 3 severe obesi ty without serious comorbidity with body mass index (BMI) of 40.0 to 44.9 in adult, unspecified obesity type (HCC) (Primary Dx); Osteoarthritis of spine with radiculopathy, cervical region; Osteoarthritis of fingers of both hands; Hypercholesterolemia; Primary osteoarthritis of both knees Start: 11-15-2024 End: 11-15-2024 ambulatory BOONE ANDINO Facility:[facility] Start: 11-15-2024 End: 11-16-2024 Refill Boone Andino MD Work Phone: [facility] Comment on above: Med Change Request Start: 08-08-2024 End: 08-10-2024 Follow-up encounter Boone Andino MD Work Phone: [facility] Comment on above: Hypercholesterolemia (Primary Dx) Start: 07-31-2024 End: 07-31-2024 ambulatory BOONE ANDINO Facility:[facility] Start: 04-16-2024 End: 04-19-2024 Telephone encounter Boone Andino MD Work Phone: [facility] Comment on above: Results; Prescriptio n Start: 04-10-2024 End: 04-10-2024 ambulatory BOONE ANDINO Facility:[facility] Start: 03-25-2024 End: 03-25-2024 ambulatory BOONE ANDINO Facility:[facility] Start: 03-25-2024 End: 03-25-2024 Patient encounter procedure Boone Andino MD Work Phone: [facility] Comment on above: Obesity, Class II, B LA 35-39.9 (Primary Dx); BPH with obstruction/lower urinary tract symptoms; Varicose veins of both lower extremities, unspecified whether complicated; Osteoarthritis of spine with radiculopathy, cervical region; Screening for depression; Encounter for screening examination for other mental health and behavioral disorders; Impacted cerumen, right ear; Hypercholesterolemia Start: 12-08-2023 End: 12-08-2023 Patient encounter procedure Ginger Lovelace PA-C Work Phone: [facility] Comment on above: Bacterial sinusitis (Primary Dx) Start: 07-28-2023 Telephone encounter Rickey jones MD Work Phone: General Surgery Comment on above: Results (colonoscopy ) Start: 05-09-2023 Refill Boone smith MD Work Phone: [facility] Comment on above: Med Change Request Start: 04-28-2023 Telephone encounter Boone avila MD Work Phone: [facility] Comment on above: Results Start: 04-16-2023 Telephone encounter Boone avila MD Work Phone: [facility] Comment on above: Opened In Error Start: 04-14-2023 End: 04-14-2023 Patient encounter procedure Boone Andino MD Work Phone: [facility] Comment on above: Routine medical exam (Primary Dx); Erectile dysfunction, unspecified erectile dysfunction type; BPH with obstruction/lower urinary tract symptoms; Varicose veins of legs; Osteoarthritis of spine with radiculopathy, cervical region; Positive colorectal cancer screening using Cologuard test; Hypercholesterolemia; Degenerative tear of medial meniscus of right knee; Need for vaccination; Special screening for malignant neoplasms, colon; Obesity, Class II, BMI 35-39.9; Asymptomatic varicose veins of both lower extremities Start: 04-14-2023 End: 04-14-2023 Patient encounter status Boone Andino MD Work Phone: [facility] Work Phone: Start: 04-07-2023 Refill Boone smith MD Work Phone: [facility] Comment on above: Refill Request Start: 08-16-2022 Telephone encounter Abby Arevalo APRN.WINE MERCHANT Work Phone: [facility] Comment on above: Results; Abnormal La b Start: 06-22-2022 End: 06-22-2022 Office outpatient visit 25 minutes Wade Juares APRN.WINE MERCHANT Work Phone: [facility] Comment on above: Bilateral hearing lo ss due to cerumen impaction (Primary Dx); Bacterial sinusitis Start: 02-06-2022 End: 02-06-2022 Patient encounter procedure Abby Older YARN 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 Work Phone: [facility] Comment on above: Wellness examination (Primary Dx); Bilateral primary osteoarthritis of knee; Bilateral hand pain; Osteoarthritis of spine with radiculopathy, cervical region; Erectile dysfunction, unspecified erectile dysfunction type; BPH with obstruction/lower urinary tract symptoms; Varicose veins of legs; Hypercholesterolemia; Colon cancer screening; Class 3 severe obesity due to excess calories without serious comorbidity with body mass index (BMI) of 40.0 to 44.9 in adult (HCC) Start: 02-06-2022 End: 02-06-2022 Patient encounter status Abby Older YARN 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 Work Phone: [facility] Start: 08-06-2021 End: 08-06-[address] Boone Andino Work Phone: [facility]-Pulmonary Services/Neurology Start: 08-06-2021 Non-patient / Non-visit Dr. Odalis Andino Work Phone: [facility] Start: 08-04-2021 End: 08-04-[address] Boone Andino Work Phone: [facility] Start: 08-02-2021 End: 08-02-[address] Boone Andino Work Phone: [facility]-Laborator Procedures Date Procedure Procedure Detail Performing Clinician Start: 07-31-2024 Lipid 1995 panel - S nicolasa or Plasma Boone Andino MD Work Phone: Start: 04-10-2024 Lipid 1995 panel - S nicolasa or Plasma Boone Andino MD Work Phone: Start: 03-25-2024 Adult depression scr eening assessment Boone Andino MD Work Phone: Start: 06-30-2023 Colonoscopy Rickey vizcarra MD Work Phone: Start: 04-26-2023 Lipid 1995 panel - S nicolasa or Plasma Boone Andino MD Work Phone: Start: 02-09-2022 Lipid 1996 panel - S nicolasa or Plasma Boone Andino MD Work Phone: Start: 02-06-2022 Adult depression scr eening assessment Abby Older YARN 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 Work Phone: Plan of Treatment Date Care Activity Detail Author Start: 2036 RSV Vaccine (1 - 1-dose 75+ series) RSV Vaccine (1 - 1-dose 75+ series) [facility] Start: 07-31-2029 Lipid panel Lipid Screening [facility] Start: 04-10-2029 Lipid panel Lipid Screening [facility] Start: 06-30-2028 Screening for malignant neoplasm of colon [facility] Start: 04-26-2028 Lipid 1996 panel - Serum or Plasma Lipid Screening [facility] Start: 04-26-2028 Lipid panel Lipid Screening [facility] Start: 08-08-2027 Urine microalbumin profile [facility] Start: 04-10-2027 Diabetes Screening Diabetes Screening [facility] Start: 02-09-2027 Lipid 1996 panel - Serum or Plasma Lipid Screening [facility] Start: 02-09-2027 LIPID SCREEN LIPID SCREEN [facility] Start: 02-09-2027 PROSTATE CANCER SCREENING DISCUSSION PROSTATE CANCER SCREENING DISCUSSION [facility] Start: 02-09-2027 Prostate specific antigen measurement Prostate Cancer Screening Discussion [facility] Start: 04-26-2026 Diabetes Screening Diabetes Screening [facility] Start: 08-08-2025 COLOGUARD (FIT-DNA) COLOGUARD (FIT-DNA) [facility] Start: 08-08-2025 COLORECTAL CANCER SCREENING COLORECTAL CANCER SCREENING [facility] Start: 08-08-2025 Screening for malignant neoplasm of colon Cologuard (FIT-DNA) [facility] Start: 04-15-2025 LIPID SCREEN LIPID SCREEN [facility] Start: 04-04-2025 End: 04-04-2025 Patient encounter procedure 04/04/2025 7:20 PM EDT Office Visit [facility] [address], [place] [address] Boone Andino MD [address] [place], [place] [id number] Preop clearance right total knee replacement, 05/02 Dr. Sosa [facility] Comment on above: Preop clearance right total knee replace ment, 05/02 Dr. Sosa Start: 03-25-2025 Anxiety Screening Anxiety Screening [facility] Start: 03-25-2025 Covid-19 Vaccine ( season) Covid-19 Vaccine () [facility] Comment on above: Postponed from 02/08/2024 (Declined at t his time) Start: 03-25-2025 Depression Screening Depression Screening [facility] Start: 03-11-2025 End: 06-10-2025 Basic metabolic 2000 panel - Serum or Plasma BASIC METABOLIC PANEL Lab Routine Hypercholesterolemia Expected: 03/11/2025, Expires: 06/10/2025 [facility] Comment on above: Expected: 03/11/2025, Expires: Start: 03-11-2025 End: 06-10-2025 Lipid 1996 panel - Serum or Plasma LIPID PANEL BASIC Lab Routine Hypercholesterolemia Expected: 03/11/2025, Expires: 06/10/2025 [facility] Work Phone: Comment on above: Expected: 03/11/2025, Expires: Start: 02-10-2025 End: 02-10-2025 Patient encounter procedure 02/10/2025 6:40 PM EDT Office Visit [facility] [address] [facility] [place] [address] Boone Andino MD [address] [place] [address] 8 week weight follow up [facility] Comment on above: 8 week weight follow up Start: 02-09-2025 DIABETES SCREEN DIABETES SCREEN [facility] Start: 02-09-2025 Diabetes Screening Diabetes Screening [facility] Start: 02-07-2025 Influenza vaccination [facility] Start: 12-23-2024 End: 12-23-2024 Patient encounter procedure 12/23/2024 7:00 PM EDT Office Visit [facility] [address] [facility] [place] [address] Boone Andino MD [address] [place] [address] 6 week follow-up [facility] Comment on above: 6 week follow-up Start: 12-06-2024 Influenza vaccination Influenza Vaccine (#1) [facility] Comment on above: Postponed from 02/08/2024 (Declined at t his time) Start: 07-18-2024 End: 10-17-2024 Lipid 1996 panel - Serum or Plasma LIPID PANEL BASIC Lab Routine Hypercholesterolemia Expected: 07/18/2024, Expires: 10/17/2024 [facility] Work Phone: Comment on above: Expected: 07/18/2024, Expires: Start: 04-14-2024 Covid-19 Vaccine () Covid-19 Vaccine () [facility] Comment on above: Postponed from 02/07/2023 (Declined at t his time) Start: 03-26-2024 End: 06-25-2024 Comprehensive metabolic 2000 panel - Serum or Plasma COMPREHENSIVE METABOLIC PANEL Lab Routine Hypercholesterolemia Expected: 03/26/2024, Expires: 06/25/2024 [facility] Comment on above: Expected: 03/26/2024, Expires: Start: 03-26-2024 End: 06-25-2024 Lipid 1996 panel - Serum or Plasma LIPID PANEL BASIC Lab Routine Hypercholesterolemia Expected: 03/26/2024, Expires: 06/25/2024 [facility] Comment on above: Expected: 03/26/2024, Expires: Start: 03-25-2024 End: 03-25-2024 Patient encounter procedure 03/25/2024 6:00 PM EDT Office Visit [facility] [address] [place] [address] Boone Andino MD [address] [place] [address] 11 month follow-up [facility] Comment on above: 11 month follow-up Start: 02-08-2024 Influenza vaccination Influenza Vaccine (#1) [facility] Start: 12-07-2023 Influenza vaccination Influenza Vaccine (#1) [facility] Comment on above: Postponed from 02/07/2023 (Declined at t his time) Start: 06-13-2023 Hzv zoster vacc recombinant adjuvanted im njx ZOSTER VACCINE, RECOMBINANT (SHINGRIX) Immunization/Injection Routine Need for vaccination Expected: 06/13/2023 (Approximate) [facility] Work Phone: Comment on above: Expected: 06/13/2023 (Approximate) Start: 06-09-2023 Behavioral Health Screening Behavioral Health Screening [facility] Start: 06-09-2023 Depression Assessment Depression Assessment [facility] Start: 06-09-2023 Shingrix Vaccine (2 of 2) Shingrix Vaccine (2 of 2) [facility] Start: 04-16-2023 End: 07-16-2023 Basic metabolic 2000 panel - Serum or Plasma BASIC METABOLIC PNL Lab Routine Varicose veins of legs Expected: 04/16/2023, Expires: 07/16/2023 [facility] Work Phone: Comment on above: Expected: 04/16/2023, Expires: 4 Start: 04-16-2023 End: 07-16-2023 CBC panel - Blood by Automated count CBC Lab Routine Positive colorectal cancer screening using Cologuard test Expected: 04/16/2023, Expires: 07/16/2023 [facility] Work Phone: Comment on above: Expected: 04/16/2023, Expires: 4 Start: 04-16-2023 End: 07-16-2023 Lipid 1996 panel - Serum or Plasma LIPID PANEL BASIC Lab Routine Hypercholesterolemia Expected: 04/16/2023, Expires: 07/16/2023 [facility] Work Phone: Comment on above: Expected: 04/16/2023, Expires: 4 Start: 04-15-2023 DIABETES SCREEN DIABETES SCREEN [facility] Start: 02-07-2023 Covid-19 Vaccine () Covid-19 Vaccine () [facility] Start: 02-07-2023 Influenza vaccination Influenza Vaccine (#1) [facility] [facility] Start: 02-06-2023 Adult depression screening assessment DEPRESSION SCREENING [facility] Start: 02-06-2023 ANNUAL PCP TEAM CHRONIC DISEASE VISIT ANNUAL PCP TEAM CHRONIC DISEASE VISIT [facility] Start: 02-06-2023 COVID-19 VACCINE (4 - Booster for Moderna series) COVID-19 VACCINE (4 - Booster for Moderna series) [facility] Comment on above: Postponed from 09/28/2021 (Declined at t his time) Postponed from 07/25 (Declined at this time) Start: 02-06-2023 SHINGRIX VACCINE (1 of 2) SHINGRIX VACCINE (1 of 2) [facility] Comment on above: Postponed from 08/18/2011 (Declined at t his time) Start: 08-08-2022 PROSTATE CANCER SCREENING DISCUSSION PROSTATE CANCER SCREENING DISCUSSION [facility] Start: 06-09-2022 DEPRESSION ASSESSMENT DEPRESSION ASSESSMENT [facility] Start: 02-07-2022 Influenza vaccination INFLUENZA (#1) [facility] Start: 02-06-2022 End: 04-08-2022 Comprehensive metabolic 2000 panel - Serum or Plasma COMP METABOLIC PANEL Lab Routine Hypercholesterolemia Expected: 02/06/2022, Expires: 04/08/2022 [facility] Work Phone: Comment on above: Expected: 02/06/2022, Expires: 2 Start: 02-06-2022 End: 04-08-2022 Lipid 1996 panel - Serum or Plasma LIPID PANEL BASIC Lab Routine Hypercholesterolemia Expected: 02/06/2022, Expires: 04/08/2022 [facility] Work Phone: Comment on above: Expected: 02/06/2022, Expires: 2 Start: 02-06-2022 End: 04-08-2022 Prostate specific Ag [Mass/volume] in Serum or Plasma PSA/PROSTSPECAG DIAG Lab Routine BPH with obstruction/lower urinary tract symptoms Expected: 02/06/2022, Expires: 04/08/2022 [facility] Work Phone: Comment on above: Expected: 02/06/2022, Expires: Start: 2021 RSV Vaccine (1 - 1-dose 60+ series) RSV Vaccine (1 - 1-dose 60+ series) [facility] Start: 2021 RSV Vaccine (1 - Risk 60-74 years 1-dose series) RSV Vaccine (1 - Risk 60-74 years 1-dose series) [facility] Start: 05-27-2021 COLORECTAL CANCER SCREENING COLORECTAL CANCER SCREENING [facility] Start: 05-27-2021 FECAL OCCULT BLOOD FECAL OCCULT BLOOD [facility] Start: 05-27-2021 Screening for malignant neoplasm of colon Fecal Occult Blood [facility] Start: 08-18-2011 Pneumococcal Vaccine: 50+ (1 of 1 - PCV) Pneumococcal Vaccine: 50+ (1 of 1 - PCV) [facility] Start: 08-18-2011 Shingrix Vaccine (1 of 2) Shingrix Vaccine (1 of 2) [facility] Start: 2006 COLOGUARD (FIT-DNA) COLOGUARD (FIT-DNA) [facility] Start: 2006 Colonoscopy COLONOSCOPY [facility] Start: [address] COLONOGRAPHY [facility] Start: 2006 Screening for malignant neoplasm of colon [facility] Start: 2006 SIGMOIDOSCOPY SIGMOIDOSCOPY [facility] COLOGUARD COLOGUARD Lab Ro utine Colon cancer screening Ordered: 02/06/2022 [facility] Work Phone: Comment on above: Ordered: 02/06/2022 Removal impacted cerumen instrumentation unilat REMOVAL OF IMPACTED CERUMEN - INSTRUMENTATION Procedures Routine Bilateral hearing loss due to cerumen impaction Ordered: 06/22/2022 [facility] Work Phone: Comment on above: Ordered: 06/22/2022 Removal impacted cerumen irrigation/lvg unilat AMBULATORY EAR LAVAGE/IRRIGATION Procedures Routine Impacted cerumen, right ear Ordered: 03/25/2024 [facility] Work Phone: Comment on above: Ordered: 03/25/2024 End: 04-14-2024 Screening colonoscopy COLONOSCOPY SCREENING Endoscopy Routine Positive colorectal cancer screening using Cologuard test Special screening for malignant neoplasms, colon 1 Occurrences starting 04/14/2023 until 04/14/2024 [facility] Work Phone: Comment on above: 1 Occurrences starting 04/14/2023 until 04/14/2024 [facility] Immunizations Immunization Date Immunization Notes Care Provider Rosie hilton 04-14-2023 zoster vaccine recombinant Boone Andino MD Work Phone: [facility] Work Phone: 11-13-2020 COVID-19 vaccine, fu ll dose (MODERNA) Abby Older YARN 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 Work Phone: [facility] Work Phone: 10-15-2020 COVID-19 vaccine, fu ll dose (MODERNA) Abby Older YARN MERCERIZER OPERATOR.[facility] Work Phone: [facility] Work Phone: 08-07-2017 tetanus and diphther ia toxoids, adsorbed, preservative free, for adult use (5 Lf of tetanus toxoid and 2 Lf of diphtheria toxoid) Abby Older YARN 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 Work Phone: [facility] 08-07-2017 influenza virus vaccine, unspecified formulation Boone Andino MD Work Phone: [facility] 04-06-2007 tetanus toxoid, redu maria elena diphtheria toxoid, and acellular pertussis vaccine, adsorbed Abby Older YARN 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 Work Phone: [facility] Work Phone: Payers Date Payer Category Payer Unknown [id number] 2024 Private Health Insurance [id number] 2023 Private Health Insurance [id number] 2022 Blue [employer] Blue Shield [id number] 2022 Unknown [id number] 2019 Unknown [id number] 2010 Unknown [facility] [id number] Self-pay [facility] [id number] Unknown [facility] [id number] Social History Date Type Detail Facility Start: 08-04-2021 Tobacco smoking status NHIS Unknown if ever smoked [facility] Work Phone: Start: 1960 Sex Assigned At Male [facility] Work Phone: Start: 02-06-2022 Tobacco smoking status NHIS Never smoked tobacco [facility] Start: 02-06-2022 Tobacco use and exposure Smokeless tobacco non-user [facility] Start: 02-06-2022 End: 02-10-2025 Alcohol intake Current drinker of alcohol (finding) [facility] Start: 04-18-2020 History SDOH Alcohol Std Drinks 1 [facility] Start: 07-03-2015 History SDOH Alcohol Comment 1-2 beers occasionally [facility] Start: 1960 Sex Assigned At Not on file [facility] Start: 04-18-2020 End: 04-14-2023 History of Social function [facility] Work Phone: Start: 04-18-2020 End: 04-14-2023 Alcohol Use Disorder Identification Test - Consumption [AUDIT-C] [facility] Work Phone: Start: 05-10-2012 Frequency of Alcohol Consumption Not on file [facility] How many standard dr inks containing alcohol do you have on a typical day? 1 or 2 [facility] Work Phone: How often to you hav e a drink containing alcohol? 2-4 times a month [facility] How many standard dr inks containing alcohol do you have on a typical day? 3 or 4 [facility] How often do you hav e 6 or more drinks on 1 occasion? Never [facility] Do you belong to any clubs or organizations such as orthodox groups, unions, fraternal or athletic groups, or school groups? Yes [facility] Are you now , , , , never or living with a partner? [facility] How often to you hav e a drink containing alcohol? Monthly or less [facility] How often do you hav e 6 or more drinks on 1 occasion? Less than monthly [facility] How hard is it for y ou to pay for the very basics like food, housing, medical care, and heating Not very hard [facility] Do you feel stress - tense, restless, nervous, or anxious, or unable to sleep at night because your mind is troubled all the time - these days [OSQ] Not at all [facility] (I/We) worried suzanne er (my/our) food would run out before (I/we) got money to buy more. Never true [facility] In the past 12 month s, was there a time when you were not able to pay the mortgage or rent on time? No [facility] Functional Status Date Assessment Result Facility 08-31-2014 Are you deaf, or do you have serious difficulty hearing No 08/31/2014 12:49 PM LAUREANOT Reba Monroy MA No [facility] 08-31-2014 Are you blind, or do you have serious difficulty seeing, even when wearing glasses No 08/31/2014 12:49 PM EDT Reba Monroy MA No [facility] 08-31-2014 Do you have serious difficulty walking or climbing stairs No 08/31/2014 12:49 PM LAUREANOT Reba Monroy MA No [facility] 08-31-2014 Do you have difficul ty dressing or bathing No 08/31/2014 12:49 PM LAUREANOT Reba Monroy MA No [facility] 08-31-2014 Because of a physica l, mental, or emotional condition, do you have difficulty doing errands alone such as visiting a physician's office or shopping No 08/31/2014 12:49 PM LAUREANOT Reba Monroy MA No [facility] Mental Status Date Assessment Result Facility 08-31-2014 Because of a physica l, mental, or emotional condition, do you have serious difficulty concentrating, remembering, or making decisions No 08/31/2014 12:49 PM EDT Reba Monroy MA No [facility] Clinical Notes 07-03-2015 to 02-16-2025 Telephone Encounter - Isaiah Olivia Horne - 02/16/2025 11:23 AM EDTTelephone Encounter - Isaiah Olivia Horne - 02/16/2025 11:23 AM EDTBoone Andino MD - 02/10/2025 6:46 PM EDT Note Date & Type Note Facility 02-16-2025 Telephone encounter Note Prescription Refill Information The patient has been identified by name and date of : Yes Caregiver verified no other encounters exist for this prescription request: Yes Caregiver confirmed with patient/requestor that no other refills are due, in the near future, with this provider at this time: Yes The last office visit in the department: 02/10/25 Does the patient have a future office visit with this provider/department: Yes Requested Prescriptions Pending Prescriptions Disp Refills diclofenac, EC, (VOLTAREN) 75 mg EC tablet 60 tablet 2 Sig: Take 1 tablet by mouth two times a day. Olivia Colon February 16, 2025 11:26 AM [facility] 02-16-2025 Miscellaneous Notes Prescription Refill Information The patient has been identified by name and date of : Yes Caregiver verified no other encounters exist for this prescription request: Yes Caregiver confirmed with patient/requestor that no other refills are due, in the near future, with this provider at this time: Yes The last office visit in the department: 02/10/25 Does the patient have a future office visit with this provider/department: Yes Requested Prescriptions Pending Prescriptions Disp Refills diclofenac, EC, (VOLTAREN) 75 mg EC tablet 60 tablet 2 Sig: Take 1 tablet by mouth two times a day. Olivia Colon February 16, 2025 11:26 AM documented in this encounter [facility] 02-10-2025 Note HNO ID: [id number] Author: BOONE ANDINO MD Service: ? Author Type: Physician Type: Progress Notes Filed: 02/11/2025 08:29 Note Text: Subjective Jose Liao is a 64 year old male. Patient presents with: Follow Up: weight check/adipex Jac Liao is a 64-year-old male with a history of obesity presenting for follow-up of medication-assisted weight loss. Weight Management:He started in November, his weight was 287 lb. Initial ask for a GLP-1 medication was denied by his insurance. We started phentermine and noted his weight decreased from 287 lb to 275 lb. Currently, he weighs 267 lb. Jac denies any side effects from phentermine, although he feels it wears off toward the end of the day, coinciding with his larger caloric intake at dinner. He states his appetite is otherwise stable and denies fatigue. Weight loss efforts are in anticipation of knee replacement surgery scheduled in April for knee replacements. He denies chest pain, palpitations, anxiety, or insomnia. Review of Systems Constitutional: (+) weight loss, (-) fatigue, (-) appetite change Cardiovascular: (-) chest pain, (-) palpitations Psychiatric: (-) anxiety, (-) insomnia Objective BP 124/80 Pulse 81 Temp 36.6 ?C (97.9 ?F) (Temporal) Resp 14 Ht 177.2 cm (5' 9.75") Wt 121.4 kg (267 lb 10.2 oz) SpO2 97% BMI 38.68 kg/m? Physical Exam GENERAL: NAD, alert and oriented. SLUNGS: Clear to auscultation bilaterally, no wheezes/rhonchi/rales. HEART: Regular rate and rhythm, no murmurs. No ectopy. MOOD: normal. ASSESSMENT/PLAN: 1. Obesity, Class II, BMI 35-39.9 - ICD9: 278.00, ICD10: E66.812 Weight decreasing - PHENTERMINE 37.5 MG CAPSULE - Continue taking phentermine at the maximized dose daily for the next two months; plan to stop the medication just before your knee replacement surgery in April. - Monitor for any side effects (for example, changes in heart rate, blood pressure, mood, or sleep); contact the office if you notice any new or concerning symptoms. - Attend your pre-operative examination appointment in April to review your readiness for knee replacement surgery. Boone Andino MD [facility] 02-10-2025 History of Present illness Narrative Subjective Jose Liao is a 64 year old male. Patient presents with: Follow Up: weight check/adipex Jac Liao is a 64-year-old male with a history of obesity presenting for follow-up of medication-assisted weight loss. Weight Management:He started in November, his weight was 287 lb. Initial ask for a GLP-1 medication was denied by his insurance. We started phentermine and noted his weight decreased from 287 lb to 275 lb. Currently, he weighs 267 lb. Jac denies any side effects from phentermine, although he feels it wears off toward the end of the day, coinciding with his larger caloric intake at dinner. He states his appetite is otherwise stable and denies fatigue. Weight loss efforts are in anticipation of knee replacement surgery scheduled in April for knee replacements. He denies chest pain, palpitations, anxiety, or insomnia. Review of Systems Constitutional: (+) weight loss, (-) fatigue, (-) appetite change Cardiovascular: (-) chest pain, (-) palpitations Psychiatric: (-) anxiety, (-) insomnia Objective BP 124/80 Pulse 81 Temp 36.6 C (97.9 F) (Temporal) Resp 14 Ht 177.2 cm (5' 9.75") Wt 121.4 kg (267 lb 10.2 oz) SpO2 97% BMI 38.68 kg/m Physical Exam GENERAL: NAD, alert and oriented. SLUNGS: Clear to auscultation bilaterally, no wheezes/rhonchi/rales. HEART: Regular rate and rhythm, no murmurs. No ectopy. MOOD: normal. ASSESSMENT/PLAN: 1. Obesity, Class II, BMI 35-39.9 - ICD9: 278.00, ICD10: E66.812 Weight decreasing - PHENTERMINE 37.5 MG CAPSULE - Continue taking phentermine at the maximized dose daily for the next two months; plan to stop the medication just before your knee replacement surgery in April. - Monitor for any side effects (for example, changes in heart rate, blood pressure, mood, or sleep); contact the office if you notice any new or concerning symptoms. - Attend your pre-operative examination appointment in April to review your readiness for knee replacement surgery. Boone Andino MD documented in this encounter [facility] 12-16-2024 Note HNO ID: [id number] Author: BOONE ANDINO MD Service: ? Author Type: Physician Type: Progress Notes Filed: 12/16/2024 19:21 Note Text: This note was created using [employer]. Subjective Patient presents with: Obesity: Medication follow up Jose Liao is a 64 year old male. Weight was down 11 pounds. He was also on the tail end of a upper respiratory infection. He did not feel appetite was suppressed, but he noted no side effects from phentermine. We tried GLP1 but medication was not covered. His joint pains were also better after switching meloxicam to diclofenac. Review of Systems Constitutional: Negative for chills and fever. HENT: Positive for congestion. Negative for sore throat. Respiratory: Positive for cough. Negative for shortness of breath. Cardiovascular: Negative for chest pain and palpitations. Gastrointestinal: Negative for abdominal pain, diarrhea, nausea and vomiting. Psychiatric/Behavioral: Negative for sleep disturbance. The patient is not nervous/anxious. 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 Patient should start on November 21, 2024. diclofenac, EC, (VOLTAREN) 75 mg EC tablet Take 1 tablet by mouth two times a day. pravastatin (PRAVACHOL) 20 mg tablet Take 1 tablet by mouth daily at bedtime. tamsulosin (FLOMAX) 0.4 mg Take 1 capsule by mouth daily at bedtime. potassium chloride ER (KLOR-CON M20) 20 mEq tablet Take 1 tablet by mouth once daily as needed (edema). gabapentin (NEURONTIN) 100 mg capsule 1 to 2 capsules at bedtime NEEDED. furosemide (LASIX) 20 mg tablet Take 1 tablet by mouth once daily as needed (edema). sildenafil (VIAGRA) 50 mg tablet Take 1 tablet by mouth once daily as needed. No current facility-administered medications for this visit. Objective BP 128/80 Pulse 73 Wt 125 kg (275 lb 9.2 oz) SpO2 97% BMI 39.82 kg/m? Physical Exam Constitutional: General: He is not in acute distress. Appearance: He is not ill-appearing. HENT: Nose: No congestion or rhinorrhea. Mouth/Throat: Mouth: Mucous membranes are moist. Pharynx: Oropharynx is clear. Cardiovascular: Rate and Rhythm: Normal rate and regular rhythm. Heart sounds: No murmur heard. Pulmonary: Breath sounds: No wheezing, rhonchi or rales. Neurological: Mental Status: He is alert. Assessment and Plan 1. Obesity, Class II, BMI 35-39.9 - ICD9: 278.00, ICD10: E66.812 (primary diagnosis) Weight decreasing - Behavioral and pharmacological intervention - PHENTERMINE 30 MG CAPSULE Discussed medication dosage, usage, goals of therapy, and side effects. Risks reviewed. I reiterated duration of not more than 6 months. 2. Viral upper respiratory tract infection - ICD9: 465.9, ICD10: J06.9 - Discussed viral etiology and rationale for treatment. - Supportive care with fluids and rest 3. Primary osteoarthritis of both knees - ICD9: 715.16, ICD10: M17.0 - Improved pain control. - TKR planned for April. Boone Andino MD [facility] 12-16-2024 History of Present illness Narrative This note was created using NoteWriter. Subjective Patient presents with: Obesity: Medication follow up Jose Liao is a 64 year old male. Weight was down 11 pounds. He was also on the tail end of a upper respiratory infection. He did not feel appetite was suppressed, but he noted no side effects from phentermine. We tried GLP1 but medication was not covered. His joint pains were also better after switching meloxicam to diclofenac. Review of Systems Constitutional: Negative for chills and fever. HENT: Positive for congestion. Negative for sore throat. Respiratory: Positive for cough. Negative for shortness of breath. Cardiovascular: Negative for chest pain and palpitations. Gastrointestinal: Negative for abdominal pain, diarrhea, nausea and vomiting. Psychiatric/Behavioral: Negative for sleep disturbance. The patient is not nervous/anxious. 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 Patient should start on November 21, 2024. diclofenac, EC, (VOLTAREN) 75 mg EC tablet Take 1 tablet by mouth two times a day. pravastatin (PRAVACHOL) 20 mg tablet Take 1 tablet by mouth daily at bedtime. tamsulosin (FLOMAX) 0.4 mg Take 1 capsule by mouth daily at bedtime. potassium chloride ER (KLOR-CON M20) 20 mEq tablet Take 1 tablet by mouth once daily as needed (edema). gabapentin (NEURONTIN) 100 mg capsule 1 to 2 capsules at bedtime NEEDED. furosemide (LASIX) 20 mg tablet Take 1 tablet by mouth once daily as needed (edema). sildenafil (VIAGRA) 50 mg tablet Take 1 tablet by mouth once daily as needed. No current facility-administered medications for this visit. Objective BP 128/80 Pulse 73 Wt 125 kg (275 lb 9.2 oz) SpO2 97% BMI 39.82 kg/m Physical Exam Constitutional: General: He is not in acute distress. Appearance: He is not ill-appearing. HENT: Nose: No congestion or rhinorrhea. Mouth/Throat: Mouth: Mucous membranes are moist. Pharynx: Oropharynx is clear. Cardiovascular: Rate and Rhythm: Normal rate and regular rhythm. Heart sounds: No murmur heard. Pulmonary: Breath sounds: No wheezing, rhonchi or rales. Neurological: Mental Status: He is alert. Assessment and Plan 1. Obesity, Class II, BMI 35-39.9 - ICD9: 278.00, ICD10: E66.812 (primary diagnosis) Weight decreasing - Behavioral and pharmacological intervention - PHENTERMINE 30 MG CAPSULE Discussed medication dosage, usage, goals of therapy, and side effects. Risks reviewed. I reiterated duration of not more than 6 months. 2. Viral upper respiratory tract infection - ICD9: 465.9, ICD10: J06.9 - Discussed viral etiology and rationale for treatment. - Supportive care with fluids and rest 3. Primary osteoarthritis of both knees - ICD9: 715.16, ICD10: M17.0 - Improved pain control. - TKR planned for April. Boone Andino MD documented in this encounter [facility] 12-14-2024 Telephone encounter Note Patient notified med should last until next appt. Chelsey Hendrickson LPN [facility] 12-14-2024 Miscellaneous Notes Patient notified med should last until next appt. Chelsey Hendrickson LPN Next appt 12/23. Chelsey Hendrickson LPN This was prescribed on 11/21 for thirty days, he should have enough until appointment on 12/21? Abby Lambert APRN.[employer] Patient's calls and states that patient is not going to have enough medication to get to patient's appointment on 11/21/2024. asking if provider can send an extra 10 days worth of medication to get to appointment? The patient has been identified by name and date of : Yes Caregiver verified no other encounters exist for this prescription request: Yes Caregiver confirmed with patient/requestor that no other refills are due, in the near future, with this provider at this time: Yes The last office visit in the department: 11/15/2024 Does the patient have a future office visit with this provider/department: Yes 12/23/2024 Requested Prescriptions Pending Prescriptions Disp Refills Phentermine HCl 15 mg capsule 10 capsule 0 Sig: Take 1 capsule by mouth daily before breakfast for 30 days. Sierra Rodriguez RN December 13, 2024 10:08 AM documented in this encounter [facility] 12-14-2024 Telephone encounter Note Next appt 12/23. Chelsey Hendrickson LPN [facility] 12-14-2024 Telephone encounter Note This was prescribed on 11/21 for thirty days, he should have enough until appointment on 12/21? Abby Lambert APRN.[employer] [facility] Work Phone: 12-13-2024 Telephone encounter Note Patient's calls and states that patient is not going to have enough medication to get to patient's appointment on 11/21/2024. asking if provider can send an extra 10 days worth of medication to get to appointment? The patient has been identified by name and date of : Yes Caregiver verified no other encounters exist for this prescription request: Yes Caregiver confirmed with patient/requestor that no other refills are due, in the near future, with this provider at this time: Yes The last office visit in the department: 11/15/2024 Does the patient have a future office visit with this provider/department: Yes 12/23/2024 Requested Prescriptions Pending Prescriptions Disp Refills Phentermine HCl 15 mg capsule 10 capsule 0 Sig: Take 1 capsule by mouth daily before breakfast for 30 days. Sierra Rodriguez RN December 13, 2024 10:08 AM [facility] 11-19-2024 Telephone encounter Note Pt called and is notified of providers results and instructions. Pt voices understanding. Gosia Fajardo RN [facility] 11-19-2024 Miscellaneous Notes Pt called and is notified of providers results and instructions. Pt voices understanding. Gosia Fajardo RN Left vm for patient to return call to nurse for provider message. 1) used in conjunction with diet and activity. 2) risk of addiction/abuse as discussed. 3) office visit and demonstrated weight loss required for refills. 4) duration not more than 6 months. Please inform the patient. The following approved medication requests have been transmitted electronically. Requested Prescriptions Signed Prescriptions Disp Refills Phentermine HCl 15 mg capsule 30 capsule 0 Sig: Take 1 capsule by mouth daily before breakfast for 30 days. Patient should start on November 21, 2024. Authorizing Provider: BOONE ANDINO MD Patient Gregoria calling her asking if PCP would be willing to prescribe an appetite suppressant, that he discussed at his appt on 11/15? She said her would not want to pay the cost for the Zepbound rx. Please advise Is he interested in paying out of pocket for Zepbound vials (He will draw and inject like insulin once a week) starting at $349/per month thru [employer]? Patient calls and notified of below that Wegovy was denied by insurance. Patient voices understanding. Patient states that provider told him that there may be other options of medication if this was denied. Please review and advise, Sierra Rodriguez RN Message left for pt to return call to a nurse. Electronic PA rec'd and completed for wegovy. This was denied. Dear JOSE LIAO: [facility] received a request for coverage of WEGOVY 0.25MG INJ for you. Your request was denied based on the terms of your prescription benefit plan. This is the initial adverse coverage determination for this request. The reason for the denial was: *Drug Not Covered/Plan Exclusion - Your request for coverage was denied because your prescription benefit plan does not cover the requested medication. documented in this encounter [facility] 11-19-2024 Telephone encounter Note Left vm for patient to return call to nurse for provider message. [facility] 11-19-2024 Telephone encounter Note 1) used in conjunction with diet and activity. 2) risk of addiction/abuse as discussed. 3) office visit and demonstrated weight loss required for refills. 4) duration not more than 6 months. Please inform the patient. The following approved medication requests have been transmitted electronically. Requested Prescriptions Signed Prescriptions Disp Refills Phentermine HCl 15 mg capsule 30 capsule 0 Sig: Take 1 capsule by mouth daily before breakfast for 30 days. Patient should start on November 21, 2024. Authorizing Provider: BOONE ANDINO MD [facility] 11-18-2024 Telephone encounter Note Patient Gregoria calling her asking if PCP would be willing to prescribe an appetite suppressant, that he discussed at his appt on 11/15? She said her would not want to pay the cost for the Zepbound rx. Please advise [facility] 11-18-2024 Telephone encounter Note Is he interested in paying out of pocket for Zepbound vials (He will draw and inject like insulin once a week) starting at $349/per month thru [employer]? [facility] 11-17-2024 Telephone encounter Note Patient calls and notified of below that Wegovy was denied by insurance. Patient voices understanding. Patient states that provider told him that there may be other options of medication if this was denied. Please review and advise, Sierra Rodriguez RN [facility] 11-17-2024 Telephone encounter Note Message left for pt to return call to a nurse. [facility] 11-16-2024 Telephone encounter Note Electronic PA rec'd and completed for wegovy. This was denied. Dear JOSE MALDONADOON: [facility] received a request for coverage of WEGOVY 0.25MG INJ for you. Your request was denied based on the terms of your prescription benefit plan. This is the initial adverse coverage determination for this request. The reason for the denial was: *Drug Not Covered/Plan Exclusion - Your request for coverage was denied because your prescription benefit plan does not cover the requested medication. [facility] 11-15-2024 Note HNO ID: [id number] Author: BOONE ANDINO MD Service: ? Author Type: Physician Type: Progress Notes Filed: 11/16/2024 07:22 Note Text: This note was created using [employer]. Subjective Jose Liao is a 64 year old male here with his . Recording using [employer] software for draft documentation of the visit was discussed with the patient/authorized accounts receivable representative; all questions welcomed and answered. Patient/authorized accounts receivable representative agreed to proceed Weight Loss Management: - Jac's BMI has increased since last visit. - Current weight: 287 lbs; previous weight: 276 lbs in March. - Orthopedic surgeon recommended weight loss prior to upcoming total knee arthroplasty scheduled for the Friday before . - Denies ability to exercise due to severe bilateral knee pain. - Interested in GLP-1 medications for weight loss. - Denies family history of endocrine tumors. - Denies history of addiction. - Never smoked. - Already started portion control with little effect. Osteoarthritis: - Severe bilateral knee pain, described as "bone on bone." - Scheduled for right total knee arthroplasty in April, with left knee arthroplasty planned for next year. - Under care of Dr. Sosa at [facility]. - Jac has received cortisone injections and PRP therapy in the past with minimal relief. - Currently taking meloxicam 15 mg daily, but reports it is not providing adequate relief. - Reports increased hand pain over the past six months, particularly during work. - Takes two Tylenol Arthritis daily. - Denies gastrointestinal side effects from meloxicam. - Meloxicam not helping finger pains. Hyperlipidemia: - Currently taking pravastatin 20 mg daily. - Recent cholesterol levels: 163 mg/dL (3 months ago), 195 mg/dL (7 months ago). - LDL: 97 mg/dL. - HDL: 51 mg/dL. - Triglycerides: within normal limits. - Denies family history of significant heart disease; father lived to 94 years, mother to 88 years. - Estimated 10-year risk for heart disease: 8%. Varicose Veins: - History of varicose veins in the right leg, with persistent swelling. 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 Current Outpatient Medications Medication Sig pravastatin (PRAVACHOL) 20 mg tablet Take 1 tablet by mouth daily at bedtime. tamsulosin (FLOMAX) 0.4 mg Take 1 capsule by mouth daily at bedtime. potassium chloride ER (KLOR-CON M20) 20 mEq tablet Take 1 tablet by mouth once daily as needed (edema). gabapentin (NEURONTIN) 100 mg capsule 1 to 2 capsules at bedtime NEEDED. furosemide (LASIX) 20 mg tablet Take 1 tablet by mouth once daily as needed (edema). meloxicam (MOBIC) 15 mg tablet Take 1 tablet by mouth once daily as needed for pain. With food. sildenafil (VIAGRA) 50 mg tablet Take 1 tablet by mouth once daily as needed. No current facility-administered medications for this visit. Objective BP 120/74 Pulse 96 Resp 18 Ht 177.2 cm (5' 9.75") Wt 130.1 kg (286 lb 13.1 oz) BMI 41.45 kg/m? Physical Exam Constitutional: Appearance: He is obese. He is not ill-appearing. Cardiovascular: Heart sounds: Normal heart sounds. Pulmonary: Breath sounds: Normal breath sounds. Musculoskeletal: Right hand: Deformity present. No swelling or tenderness. Left hand: Deformity present. No swelling or tenderness. Right knee: No deformity or effusion. Decreased range of motion. No tenderness. Left knee: No deformity or effusion. Decreased range of motion. No tenderness. Comments: Yoly's and Heberden's nodes in multiple digits. Reviewed: Last lipid profile. Assessment and Plan 1. Class 3 severe obesity without serious comorbidity with body mass index (BMI) of 40.0 to 44.9 in adult, unspecified obesity type (HCC) - ICD9: 278.01, V85.41, ICD10: E66.813, Z68.41 (primary diagnosis) Weight increasing - Behavioral and pharmacological intervention - SEMAGLUTIDE (WEIGHT LOSS) 0.25 MG/0.5 ML SUBCUTANEOUS PEN INJECTOR Shared Medical Decision Making was done: Medication: semaglutide. Benefits: Medication may help weight loss and CV risk reduction. Risks: Possible side eff (more content not included)... [facility] 11-15-2024 History of Present illness Narrative This note was created using [employer]. Subjective Jose Liao is a 64 year old male here with his . Recording using [employer] software for draft documentation of the visit was discussed with the patient/authorized accounts receivable representative; all questions welcomed and answered. Patient/authorized accounts receivable representative agreed to proceed Weight Loss Management: - Jac's BMI has increased since last visit. - Current weight: 287 lbs; previous weight: 276 lbs in March. - Orthopedic surgeon recommended weight loss prior to upcoming total knee arthroplasty scheduled for the Friday before . - Denies ability to exercise due to severe bilateral knee pain. - Interested in GLP-1 medications for weight loss. - Denies family history of endocrine tumors. - Denies history of addiction. - Never smoked. - Already started portion control with little effect. Osteoarthritis: - Severe bilateral knee pain, described as "bone on bone." - Scheduled for right total knee arthroplasty in April, with left knee arthroplasty planned for next year. - Under care of Dr. Sosa at [facility]. - Jac has received cortisone injections and PRP therapy in the past with minimal relief. - Currently taking meloxicam 15 mg daily, but reports it is not providing adequate relief. - Reports increased hand pain over the past six months, particularly during work. - Takes two Tylenol Arthritis daily. - Denies gastrointestinal side effects from meloxicam. - Meloxicam not helping finger pains. Hyperlipidemia: - Currently taking pravastatin 20 mg daily. - Recent cholesterol levels: 163 mg/dL (3 months ago), 195 mg/dL (7 months ago). - LDL: 97 mg/dL. - HDL: 51 mg/dL. - Triglycerides: within normal limits. - Denies family history of significant heart disease; father lived to 94 years, mother to 88 years. - Estimated 10-year risk for heart disease: 8%. Varicose Veins: - History of varicose veins in the right leg, with persistent swelling. 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 Current Outpatient Medications Medication Sig pravastatin (PRAVACHOL) 20 mg tablet Take 1 tablet by mouth daily at bedtime. tamsulosin (FLOMAX) 0.4 mg Take 1 capsule by mouth daily at bedtime. potassium chloride ER (KLOR-CON M20) 20 mEq tablet Take 1 tablet by mouth once daily as needed (edema). gabapentin (NEURONTIN) 100 mg capsule 1 to 2 capsules at bedtime NEEDED. furosemide (LASIX) 20 mg tablet Take 1 tablet by mouth once daily as needed (edema). meloxicam (MOBIC) 15 mg tablet Take 1 tablet by mouth once daily as needed for pain. With food. sildenafil (VIAGRA) 50 mg tablet Take 1 tablet by mouth once daily as needed. No current facility-administered medications for this visit. Objective BP 120/74 Pulse 96 Resp 18 Ht 177.2 cm (5' 9.75") Wt 130.1 kg (286 lb 13.1 oz) BMI 41.45 kg/m Physical Exam Constitutional: Appearance: He is obese. He is not ill-appearing. Cardiovascular: Heart sounds: Normal heart sounds. Pulmonary: Breath sounds: Normal breath sounds. Musculoskeletal: Right hand: Deformity present. No swelling or tenderness. Left hand: Deformity present. No swelling or tenderness. Right knee: No deformity or effusion. Decreased range of motion. No tenderness. Left knee: No deformity or effusion. Decreased range of motion. No tenderness. Comments: Yoly's and Heberden's nodes in multiple digits. Reviewed: Last lipid profile. Assessment and Plan 1. Class 3 severe obesity without serious comorbidity with body mass index (BMI) of 40.0 to 44.9 in adult, unspecified obesity type (HCC) - ICD9: 278.01, V85.41, ICD10: E66.813, Z68.41 (primary diagnosis) Weight increasing - Behavioral and pharmacological intervention - SEMAGLUTIDE (WEIGHT LOSS) 0.25 MG/0.5 ML SUBCUTANEOUS PEN INJECTOR Shared Medical Decision Making was done: Medication: semaglutide. Benefits: Medication may help weight loss and CV risk reduction. Risks: Possible side effects were discussed including GI side effects. Possible interactions: n/a. Warnings: pancreatitis. Approved use or off label use: approved. Options: appetite suppressants for limited time. Cost: high. Prior approval may be needed. Duration: TBD. 2. Osteoarthritis of spine with radiculopathy, cervical region - ICD9: 721.0, ICD10: M47.22 - Discontinue MELOXICAM. - DICLOFENAC SODIUM 75 MG TABLET,DELAYED RELEASE. Discussed medication dosage, usage, goals of therapy, and side effects. 3. Osteoarthritis of fingers of both hands - ICD9: 715.94, ICD10: M19.041, M19.042 New diagnosis. - DICLOFENAC SODIUM 75 MG TABLET,DELAYED RELEASE 4. Hypercholesterolemia - ICD9: 272.0, ICD10: E78.00 Reviewed further risk reduction. We agreed to continue current dose. 5. Primary osteoarthritis of both knees - ICD9: 715.16, ICD10: M17.0 Request records from technical operations specialist. - DICLOFENAC SODIUM 75 MG TABLET,DELAYED RELEASE Boone Andino MD documented in this encounter [facility] 08-09-2024 Telephone encounter Note Patient left detailed message please file lab for March Chelsea MerrillGONSALO nelson [facility] 08-09-2024 Miscellaneous Notes Patient left detailed message please file lab for March Chelsea MerrillGONSALO nelson documented in this encounter [facility] 04-19-2024 Telephone encounter Note Pt returned the call and notified of RX and need for repeat labwork in July. [facility] 04-19-2024 Miscellaneous Notes Pt returned the call and notified of RX and need for repeat labwork in July. Called and left a voicemail for the patient to call back and ask for a nurse to receive the providers message. Fasting lipid panel in 3 months on medication. Called pt and he is agreeable to start medication.Med pended ----- Message from Boone Andino MD sent at 04/15/2024 7:13 PM EST ----- Test results are okay but cholesterol creeping up. The 10-year heart disease risk score (Barak DK, et al., 2019) is: 8.1% He is a candidate to start cholesterol lowering medication to reduce risk of heart disease and stroke. Common side effects: GI, indigestion and muscle pains. If agreeable, start Pravastatin 20 mg at bedtime. documented in this encounter [facility] 04-19-2024 Telephone encounter Note Called and left a voicemail for the patient to call back and ask for a nurse to receive the providers message. [facility] 04-17-2024 Telephone encounter Note Fasting lipid panel in 3 months on medication. [facility] 04-16-2024 Telephone encounter Note Called pt and he is agreeable to start medication.Med pended [facility] 04-16-2024 Telephone encounter Note ----- Message from Boone Andino MD sent at 04/15/2024 7:13 PM EST ----- Test results are okay but cholesterol creeping up. The 10-year heart disease risk score (Barak ANDRADE, et al., 2019) is: 8.1% He is a candidate to start cholesterol lowering medication to reduce risk of heart disease and stroke. Common side effects: GI, indigestion and muscle pains. If agreeable, start Pravastatin 20 mg at bedtime. [facility] 03-25-2024 Note HNO ID: [id number] Author: BOONE ANDINO MD Service: ? Author Type: Physician Type: Progress Notes Filed: 03/25/2024 19:05 Note Text: This note was created using NoteWriter. Subjective Patient presents with: Follow Up For: Medication refills Jose Liao is a 63 year old male. He felt well and denied needing a physical. He mentioned feeling his sinuses were stuffed for one month with hearing muffled. He had not tried any medication for his symptoms. His edema was controlled with furosemide as needed. ED was controlled. Cervicalgia was stable. His knee was stable, and he had not needed an injection from Dr. Sosa for over a year. Colonoscopy was positive for polyps and follow up with 5 years recommended. He had no exercise routine, but his work was physical. He's had some weight regain since last year. Review of Systems Constitutional: Negative for chills, fatigue and fever. HENT: Positive for congestion and hearing loss. Negative for nosebleeds, sinus pain, sneezing and sore throat. Eyes: Negative for visual disturbance. Respiratory: Negative for cough, chest tightness and shortness of breath. Cardiovascular: Positive for leg swelling. Negative for chest pain and palpitations. Gastrointestinal: Negative for abdominal pain, constipation and diarrhea. 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 Positive Colorectal Cancer Screening Using Cologuard Test Obesity, Class II, Bmi 35-39.9 Special Screening for Malignant Neoplasms, Colon PAST SURGICAL HISTORY Procedure Laterality Date COLONOSCOPY SCREENING 06/30/2023 next colonoscopy due in 5 years LEFT HEART CATH,PERCUTANEOUS 02/10/2009 Cardiac cath, L heart RIGHT HEART CATHETERIZATION 02/10/2009 Cardiac cath, R heart TONSILLECTOMY PRIMARY/SECONDARY Tonsillectomy VASCULAR SURGERY PROCEDURE Social History Tobacco Use Smoking status: Never Smokeless tobacco: Never Substance Use Topics Alcohol use: Yes Alcohol/week: 2.0 standard drinks of alcohol Types: 2 Shots of liquor per week Drug use: No FAMILY HISTORY Problem Relation Age of Onset Arthritis Father other (AAA) Father COPD Mother Hypertension Mother Cancer Mother Lung cancer Cancer Brother Liver cancer,IVDA related? Current Outpatient Medications Medication Sig sildenafil (VIAGRA) 50 mg tablet Take 1 tablet by mouth once daily as needed. tamsulosin (FLOMAX) 0.4 mg Take 1 capsule by mouth daily at bedtime. potassium chloride ER (KLOR-CON M20) 20 mEq tablet Take 1 tablet by mouth once daily as needed (edema). gabapentin (NEURONTIN) 100 mg capsule 1 to 2 capsules at bedtime NEEDED. furosemide (LASIX) 20 mg tablet Take 1 tablet by mouth once daily as needed (edema). meloxicam (MOBIC) 15 mg tablet Take 1 tablet by mouth once daily as needed for pain. With food. No current facility-administered medications for this visit. Objective BP 115/75 Pulse 99 Temp 37.3 ?C (99.1 ?F) (Temporal) Resp 16 Wt 125.6 kg (276 lb 14.4 oz) SpO2 95% BMI 38.62 kg/m? Physical Exam Constitutional: General: He is not in acute distress. Appearance: He is not ill-appearing. HENT: Head: Normocephalic. Right Ear: External ear normal. There is impacted cerumen. Left Ear: Tympanic membrane, ear canal and external ear normal. Nose: Congestion present. No rhinorrhea. Mouth/Throat: Mouth: Mucous membranes are moist. Pharynx: Oropharynx is clear. No oropharyngeal exudate or posterior oropharyngeal erythema. Eyes: Conjunctiva/sclera: Conjunctivae normal. Cardiovascular: Rate and Rhythm: Normal rate and regular rhythm. Heart sounds: No murmur heard. No gallop. Pulmonary: Breath sounds: Normal breath sounds. Abdominal: Palpations: Abdomen is soft. Tenderness: There is no abdominal tenderness. Musculoskeletal: General: No tenderness. Right lower leg: No edema. Left lower leg: No edema. Lymphadenopathy: Cervical: No cervical adenopathy. Neurological: Mental Status: He is alert. Assessment and Plan 1. Obesity, Class II, BMI 35-39.9 - ICD9: 278.00, ICD10: E66.812 (primary diagnosis) - Weight loss recommended. 2. BPH with obstruction/lower urinary tract symptoms - ICD9: 600.01, 599.69, ICD10: N40.1, N13.8 - Controlled. - TAMSULOSIN 0.4 MG CAPSULE 3. Varicose veins of both lower extremities, unspecified whether complicated - ICD9: 454.9, ICD10: I83.93 - Continue compressions and PRN diuretic. - POTASSIUM CHLORIDE ER 20 MEQ TABLET,EXTENDED RELEASE(PART/CRYST) - FUROSEMIDE 20 MG TABLET 4. Osteoarthritis of spine with radiculopathy, cervical region - ICD9: 721.0, ICD10: M47.22 - Controlled. - GABAPENTIN 100 MG CAPSULE - MELOXICAM 15 MG TABLET 5. Screening for depression - ICD9: V79.0, (more content not included)... [facility] 03-25-2024 History of Present illness Narrative This note was created using [employer]. Subjective Patient presents with: Follow Up For: Medication refills Jose Liao is a 63 year old male. He felt well and denied needing a physical. He mentioned feeling his sinuses were stuffed for one month with hearing muffled. He had not tried any medication for his symptoms. His edema was controlled with furosemide as needed. ED was controlled. Cervicalgia was stable. His knee was stable, and he had not needed an injection from Dr. Sosa for over a year. Colonoscopy was positive for polyps and follow up with 5 years recommended. He had no exercise routine, but his work was physical. He's had some weight regain since last year. Review of Systems Constitutional: Negative for chills, fatigue and fever. HENT: Positive for congestion and hearing loss. Negative for nosebleeds, sinus pain, sneezing and sore throat. Eyes: Negative for visual disturbance. Respiratory: Negative for cough, chest tightness and shortness of breath. Cardiovascular: Positive for leg swelling. Negative for chest pain and palpitations. Gastrointestinal: Negative for abdominal pain, constipation and diarrhea. 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 Positive Colorectal Cancer Screening Using Cologuard Test Obesity, Class II, Bmi 35-39.9 Special Screening for Malignant Neoplasms, Colon PAST SURGICAL HISTORY Procedure Laterality Date COLONOSCOPY SCREENING 06/30/2023 next colonoscopy due in 5 years LEFT HEART CATH,PERCUTANEOUS 02/10/2009 Cardiac cath, L heart RIGHT HEART CATHETERIZATION 02/10/2009 Cardiac cath, R heart TONSILLECTOMY PRIMARY/SECONDARY <AGE 13 1972 Tonsillectomy VASCULAR SURGERY PROCEDURE Social History Tobacco Use Smoking status: Never Smokeless tobacco: Never Substance Use Topics Alcohol use: Yes Alcohol/week: 2.0 standard drinks of alcohol Types: 2 Shots of liquor per week Drug use: No FAMILY HISTORY Problem Relation Age of Onset Arthritis Father other (AAA) Father COPD Mother Hypertension Mother Cancer Mother Lung cancer Cancer Brother Liver cancer,IVDA related? Current Outpatient Medications Medication Sig sildenafil (VIAGRA) 50 mg tablet Take 1 tablet by mouth once daily as needed. tamsulosin (FLOMAX) 0.4 mg Take 1 capsule by mouth daily at bedtime. potassium chloride ER (KLOR-CON M20) 20 mEq tablet Take 1 tablet by mouth once daily as needed (edema). gabapentin (NEURONTIN) 100 mg capsule 1 to 2 capsules at bedtime NEEDED. furosemide (LASIX) 20 mg tablet Take 1 tablet by mouth once daily as needed (edema). meloxicam (MOBIC) 15 mg tablet Take 1 tablet by mouth once daily as needed for pain. With food. No current facility-administered medications for this visit. Objective BP 115/75 Pulse 99 Temp 37.3 C (99.1 F) (Temporal) Resp 16 Wt 125.6 kg (276 lb 14.4 oz) SpO2 95% BMI 38.62 kg/m Physical Exam Constitutional: General: He is not in acute distress. Appearance: He is not ill-appearing. HENT: Head: Normocephalic. Right Ear: External ear normal. There is impacted cerumen. Left Ear: Tympanic membrane, ear canal and external ear normal. Nose: Congestion present. No rhinorrhea. Mouth/Throat: Mouth: Mucous membranes are moist. Pharynx: Oropharynx is clear. No oropharyngeal exudate or posterior oropharyngeal erythema. Eyes: Conjunctiva/sclera: Conjunctivae normal. Cardiovascular: Rate and Rhythm: Normal rate and regular rhythm. Heart sounds: No murmur heard. No gallop. Pulmonary: Breath sounds: Normal breath sounds. Abdominal: Palpations: Abdomen is soft. Tenderness: There is no abdominal tenderness. Musculoskeletal: General: No tenderness. Right lower leg: No edema. Left lower leg: No edema. Lymphadenopathy: Cervical: No cervical adenopathy. Neurological: Mental Status: He is alert. Assessment and Plan 1. Obesity, Class II, BMI 35-39.9 - ICD9: 278.00, ICD10: E66.812 (primary diagnosis) - Weight loss recommended. 2. BPH with obstruction/lower urinary tract symptoms - ICD9: 600.01, 599.69, ICD10: N40.1, N13.8 - Controlled. - TAMSULOSIN 0.4 MG CAPSULE 3. Varicose veins of both lower extremities, unspecified whether complicated - ICD9: 454.9, ICD10: I83.93 - Continue compressions and PRN diuretic. - POTASSIUM CHLORIDE ER 20 MEQ TABLET,EXTENDED RELEASE(PART/CRYST) - FUROSEMIDE 20 MG TABLET 4. Osteoarthritis of spine with radiculopathy, cervical region - ICD9: 721.0, ICD10: M47.22 - Controlled. - GABAPENTIN 100 MG CAPSULE - MELOXICAM 15 MG TABLET 5. Screening for depression - ICD9: V79.0, ICD10: Z13.31 - DEPRESSION SCREENING 6. Encounter for screening examination for other mental health and behavioral disorders - ICD9: V79.8, ICD10: Z13.39 - ANXIETY SCREENING 7. Impacted cerumen, right ear - ICD9: 380.4, ICD10: H61.21 Patient tolerated this well. Right TM with no acute findings. - AMBULATORY EAR LAVAGE/IRRIGATION 8. Hypercholesterolemia - ICD9: 272.0, ICD10: E78.00 Recheck. - COMPREHENSIVE METABOLIC PANEL - LIPID PANEL BASIC Boone Andino MD documented in this encounter [facility] 12-08-2023 History of Present illness Narrative This note was created using #[email or web address]. Subjective Jose Liao is a 63 year old male. HPI Presents with sinus pressure and congestion for about a month. He has tried a sinus lavage a few times without relief. Has also tried an unknown nasal spray that his gave him. He has had problems with sinus infections before. At the beginning of this he states he had a bad cold, states that even could have been COVID but he did not test for it he has not been able to smell or taste for about a month as well. He has had headaches and forehead pressure. He is ears feel clogged. No fever. 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 Review of Systems Constitutional: Negative. HENT: Positive for congestion, sinus pressure and sinus pain. Negative for ear discharge, ear pain and sore throat. Respiratory: Positive for cough. Negative for shortness of breath. Cardiovascular: Negative. Gastrointestinal: Negative. Genitourinary: Negative. Musculoskeletal: Negative. All other systems reviewed and are negative. PAST MEDICAL HISTORY Diagnosis Date Arthritis Atrial fibrillation (HCC) 1990 BENIGN HYPERTENSION 07/03/2006 BPH with obstruction/lower urinary tract symptoms 11/18/2019 Cardiomyopathy (HCC) 02/14/2009 Degenerative tear of medial meniscus of right knee 02/04/2018 [facility] (degenerative joint disease) of cervical spine 11/18/2011 Erectile dysfunction 07/18/2016 Hypercholesterolemia 07/03/2006 HYPERLIPIDEMIA NEC/NOS 07/03/2006 HYPERTEN HEART DIS W/O HRT FAIL 07/03/2006 Hypertensive heart disease without heart failure 07/03/2006 OBESITY NOS 07/03/2006 Sleep apnea 02/14/2009 Varicose veins of legs 08/07/2017 Current Outpatient Medications Medication Sig Dispense Refill sildenafil (VIAGRA) 50 mg tablet Take 1 tablet by mouth once daily as needed. 30 tablet 1 tamsulosin (FLOMAX) 0.4 mg Take 1 capsule by mouth daily at bedtime. 90 capsule 3 furosemide (LASIX) 20 mg tablet Take 1 tablet by mouth once daily as needed (edema). 90 tablet 3 meloxicam (MOBIC) 15 mg tablet Take 1 tablet by mouth once daily as needed for pain. With food. 90 tablet 3 gabapentin (NEURONTIN) 100 mg capsule 1 to 2 capsules at bedtime NEEDED. 60 capsule 2 potassium chloride ER (KLOR-CON M20) 20 mEq tablet Take 1 tablet by mouth once daily as needed (edema). 90 tablet 3 doxycycline (VIBRA-TABS) 100 mg tablet Take 1 tablet by mouth two times a day for 7 days. 14 tablet 0 No current facility-administered medications for this visit. PAST SURGICAL HISTORY Procedure Laterality Date COLONOSCOPY SCREENING 06/30/2023 next colonoscopy due in 5 years LEFT HEART CATH,PERCUTANEOUS 02/10/2009 Cardiac cath, L heart RIGHT HEART CATHETERIZATION 02/10/2009 Cardiac cath, R heart TONSILLECTOMY PRIMARY/SECONDARY <AGE 13 1972 Tonsillectomy VASCULAR SURGERY PROCEDURE FAMILY HISTORY Problem Relation Age of Onset Arthritis Father other (AAA) Father COPD Mother Hypertension Mother Cancer Mother Lung cancer Cancer Brother Liver cancer,IVDA related? Social History Tobacco Use Smoking status: Never Smokeless tobacco: Never Substance Use Topics Alcohol use: Yes Comment: 1-2 beers occasionally Drug use: No Objective BP 122/78 Pulse 94 Temp 36.7 C (98.1 F) (Tympanic) Resp 16 Wt 127.2 kg (280 lb 6.8 oz) SpO2 96% BMI 39.11 kg/m Physical Exam Vitals reviewed. Constitutional: Appearance: Normal appearance. HENT: Head: Normocephalic and atraumatic. Right Ear: Ear canal and external ear normal. Left Ear: Ear canal and external ear normal. Ears: Comments: Bilateral serous SANDRA Nose: Congestion present. Right Sinus: Maxillary sinus tenderness present. Left Sinus: Maxillary sinus tenderness present. Mouth/Throat: Mouth: Mucous membranes are moist. Pharynx: Oropharynx is clear. Cardiovascular: Rate and Rhythm: Normal rate and regular rhythm. Heart sounds: Normal heart sounds. Pulmonary: Effort: Pulmonary effort is normal. Breath sounds: Normal breath sounds. Musculoskeletal: Cervical back: Neck supple. Skin: General: Skin is warm and dry. Neurological: General: No focal deficit present. Mental Status: He is alert and oriented to person, place, and time. Assessment and Plan ASSESSMENT/PLAN: 1. Bacterial sinusitis - ICD9: 473.9, 041.9, ICD10: J32.9, B96.89 - Will begin treatment with Doxycycline. Otc flonase - Supportive care with plenty of fluids, rest, and analgesia prn. - Follow up in 3-5 days if symptoms persist or worsen. Ginger Lovelace PA-C documented in this encounter [facility] 12-08-2023 Instructions Ginger Lovelace PA-C - 12/08/2023 7:25 PM EDT Flonase nasal spray documented in this encounter [facility] 07-28-2023 Miscellaneous Notes Called and updated patient with results. Updated HM, history and recall letter. Manisha Peterson LPN July 28, 2023 4:37 PM Benign polyps repeat colonoscopy in 5 years Patient called in requesting results for colonoscopy done one 06.30.23. Please review and advise. Thank you. Manisha Peterson LPN July 28, 2023 11:22 AM Jose # [phone] documented in this encounter [facility] 05-05-2023 Miscellaneous Notes TC to pt. States that since his labs are border line he is going to try to adjust his diet before starting a medication. TC to patient who verbalized understanding of providers message below. Patient states he would like to take some time to think about starting the medication and will call office back with his decision. Please leave open until patient returns call. MEHREEN Raymundo ----- Message from Boone Andino MD sent at 04/27/2023 1:22 PM EST ----- Labs okay. Cholesterol better, but he is still a candidate for taking cholesterol lowering medication to prevent heart disease. If agreeable, start atorvastatin 10 mg at bedtime. documented in this encounter [facility] 04-14-2023 History of Present illness Narrative This note was created using NoteWriter. Subjective Patient presents with: Physical Jose Liao is a 62 year old male. He was losing weight by cutting out sweetened drinks and limiting himself to one main meal per day. He was losing weight in anticipation of knee replacement. He gets knee injections periodically from Dr. Sosa's office. His medications were unchanged. He inquired about modafinil which he occasionally took from his 's supply to help with energy. He denied excessive somnolence and declined referral. We reviewed his positive Cologuard 8 months ago. Review of Systems Constitutional: Negative for chills, fatigue, fever and unexpected weight change. HENT: Negative for congestion. Respiratory: Negative for cough, shortness of breath and wheezing. Cardiovascular: Negative for chest pain, palpitations and leg swelling. Gastrointestinal: Positive for constipation. Negative for abdominal pain, blood in stool, diarrhea, nausea and vomiting. Genitourinary: Negative for difficulty urinating and dysuria. Musculoskeletal: Positive for arthralgias. Skin: Negative. Neurological: Negative for dizziness and headaches. Psychiatric/Behavioral: Negative for dysphoric mood. 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 02/04/2018 [facility] (degenerative joint disease) of cervical spine 11/18/2011 Erectile dysfunction 07/18/2016 Hypercholesterolemia 07/03/2006 HYPERLIPIDEMIA NEC/NOS 07/03/2006 HYPERTEN HEART DIS W/O HRT FAIL 07/03/2006 Hypertensive heart disease without heart failure 07/03/2006 OBESITY NOS 07/03/2006 Sleep apnea 02/14/2009 Varicose veins of legs 08/07/2017 PAST SURGICAL HISTORY Procedure Laterality Date LEFT HEART CATH,PERCUTANEOUS Cardiac cath, L heart RIGHT HEART CATHETERIZATION Cardiac cath, R heart TONSILLECTOMY PRIMARY/SECONDARY <AGE 12 1972 Tonsillectomy FAMILY HISTORY Problem Relation Age of Onset Arthritis Father other (AAA) Father COPD Mother Hypertension Mother Cancer Mother Lung cancer Cancer Brother Liver cancer,IVDA related? Social History Tobacco Use Smoking status: Never Smokeless tobacco: Never Substance Use Topics Alcohol use: Yes Comment: 1-2 beers occasionally Drug use: No ALLERGIES Allergen Reactions Penicillins Current Outpatient Medications Medication Sig gabapentin (NEURONTIN) 100 mg capsule 1 to 2 capsules at bedtime NEEDED. potassium chloride ER (KLOR-CON M20) 20 mEq tablet Take 1 tablet by mouth once daily as needed (edema). sildenafil (VIAGRA) 50 mg tablet Take 1 tablet by mouth once daily as needed. tamsulosin (FLOMAX) 0.4 mg Take 1 capsule by mouth daily at bedtime. furosemide (LASIX) 20 mg tablet Take 1 tablet by mouth once daily as needed (edema). meloxicam (MOBIC) 15 mg tablet Take 1 tablet by mouth once daily as needed for pain. With food. peg 3350-electrolytes (GAVILYTE-C) 240-22.72-6.72 -5.84 gram solution Take 4,000 mL by mouth one time only for 1 dose. No current facility-administered medications for this visit. Objective BP 118/70 (BP Site: Right Arm, BP Position: Sitting, BP Cuff Size: Large Adult) Pulse 92 Resp 20 Ht 180.3 cm (5' 11") Wt 122.5 kg (270 lb) BMI 37.66 kg/m Physical Exam Constitutional: General: He is not in acute distress. Appearance: He is not ill-appearing. HENT: Head: Normocephalic. Eyes: General: No scleral icterus. Extraocular Movements: Extraocular movements intact. Conjunctiva/sclera: Conjunctivae normal. Neck: Vascular: No carotid bruit. Cardiovascular: Rate and Rhythm: Normal rate and regular rhythm. Heart sounds: No murmur heard. No gallop. Pulmonary: Effort: No respiratory distress. Breath sounds: Normal breath sounds. No wheezing or rales. Abdominal: Palpations: Abdomen is soft. Tenderness: There is no abdominal tenderness. Musculoskeletal: Right lower leg: No edema. Left lower leg: No edema. Lymphadenopathy: Cervical: No cervical adenopathy. Neurological: General: No focal deficit present. Mental Status: He is alert. Gait: Gait normal. Psychiatric: Mood and Affect: Mood normal. Assessment and Plan 1. Routine medical exam - ICD9: V70.0, ICD10: Z00.00 (primary diagnosis) - Counseled on healthy diet and regular exercise - Discussed need for and benefit of weight loss. BMI 37.66 kg/(m^2) - Colorectal cancer screening recommended - agrees to Colonoscopy - Depression screening tool completed and reviewed with patient. Based on score and interview, patient is not at risk for depression and recommended no further intervention at this time. - Patient was counseled [id number] by myself (the billing provider) for the following immunizations and vaccine components, including side effects: RSV and Shingrix. Patient consents for immunization and understands risks and benefits. A VIS sheet on each immunization was given to the patient. - Follow up for annual exam in one year 2. Erectile dysfunction, unspecified erectile dysfunction type - ICD9: 607.84, ICD10: N52.9 Controlled. - SILDENAFIL 50 MG TABLET 3. BPH with obstruction/lower urinary tract symptoms - ICD9: 600.01, 599.69, ICD10: N40.1, N13.8 Controlled. - TAMSULOSIN 0.4 MG CAPSULE 4. Varicose veins of legs - ICD9: 454.9, ICD10: I83.93 Controlled. He used compressions and took furosemide 1-2 times per week. - FUROSEMIDE 20 MG TABLET - BASIC METABOLIC PNL 5. Osteoarthritis of spine with radiculopathy, cervical region - ICD9: 721.0, ICD10: M47.22 Stable. - MELOXICAM 15 MG TABLET 6. Positive colorectal cancer screening using Cologuard test - ICD9: 787.7, ICD10: R19.5 Options were discussed at length. He agreed to open access as his best chance is on a Friday. - COLONOSCOPY SCREENING - CBC 7. Hypercholesterolemia - ICD9: 272.0, ICD10: E78.00 TBD. - LIPID PANEL BASIC 8. Degenerative tear of medial meniscus of right knee - ICD9: 717.3, ICD10: M23.203 Stable. 9. Need for vaccination - ICD9: V05.9, ICD10: Z23 - ZOSTER VACCINE, RECOMBINANT (SHINGRIX) - ZOSTER VACCINE, RECOMBINANT (SHINGRIX) 10. Special screening for malignant neoplasms, colon - ICD9: V76.51, ICD10: Z12.11 - COLONOSCOPY SCREENING - PEG 3350 240 GRAM-ELECTROLYTES 22.72 GRAM-6.72 G-5.84 G POWDR FOR SOLN 11. Obesity, Class II, BMI 35-39.9 - ICD9: 278.00, ICD10: E66.9 Improved. Boone Andino MD [facility] OPEN ACCESS QUESTIONNAIRE 1. Are you currently having any new or unusual stomach/gastrointestinal issues at this time such as constipation, diarrhea, abdominal pain, rectal bleeding etc?No 2. Do you have any difficulty swallowing? No 3. Do you have any implanted devices such as a defibrillator, pacemaker, cardiac stents or deep brain stimulator? No 4. Do you take any Blood thinners such as Coumadin, Plavix, Xarelto, Eliquis, Brilinta or any other blood thinner? No 5. Do you have any new or past cardiac (heart) or pulmonary (lung) issues? No 6. Do you currently use any oxygen? No 7. Have you been hospitalized in the past 6 weeks? No 8. Have you had difficulty with anesthesia previously re: Difficult intubation? No Other difficulty or allergic reaction to anesthesia other than post op N/V? No 9. Are you on dialysis? No 10. Do you have any bleeding disorders such as hemophilia or Factor 5? No 11. Are you an Insulin Dependent Diabetic? No IF ANY OF THE TOP ELEVEN QUESTIONS ARE ANSWERED YES PLEASE SCHEDULE THE PATIENT FOR A CONSULT. N/A 12. Is the patient's BMI 40 or greater? No:Body mass index is 37.66 kg/m .. 13. Do you take any narcotics or anti-Anxiety medications? No 14. Do you use any illegal or recreational drugs including marijuana? No 15. Any alcohol use: YES: What type of alcohol, how much and how often do you drink? : only on occasion 16. Have you been diagnosed with chronic liver disease such as hepatitis or cirrhosis? No 17. Do you have a seizure disorder? No 18. Do you have ulcerative colitis or Crohn's disease? No 19. Are you or could you be ? NA 20. Any other important health information we should be made aware of prior to your colonoscopy? No. To be completed by LIP: Did patient have MAC anesthesia with a previous endoscopy procedure? No Patient appropriate for Open Access Colonoscopy: Yes: appropriate for Open Access Procedure Checklist: Prior to closing the encounter: Complete questionnaire: Yes Confirm Prep order has been Ordered/Pended: Yes. Patient's procedure could be delayed if not given the script for the prep. Please ensure the prep is escripted to pharmacy or printed. Instructions for the prep will print upon filing or pending this smartset. Please send all open access questionnaires to [facility] Pool #[id number] documented in this encounter [facility] 04-14-2023 Instructions Boone Andino MD - 04/14/2023 7:54 PM EST Health Information For Patients and the Community How to Prepare for Your Colonoscopy Using Golytely, Nulytely, Trilyte or Colyte Preparations IMPORTANT - Please Read These Instructions at Least 2 Weeks Before Your Colonoscopy Church Instructions: ?Your bowel must be empty so that your doctor can clearly view your colon. Follow all of the instructions in this handout EXACTLY as they are written. If you do NOT follow the directions for when to start drinking the bowel preparation (see next page), your colonoscopy WILL be cancelled. ?Do NOT eat any solid food the ENTIRE day before your colonoscopy. ?Buy your bowel preparation at least 5 days before your colonoscopy. ?Do NOT mix the solution until the day before your colonoscopy. [facility] on the Day of Your Exam A responsible family member or friend MUST come with you to your colonoscopy and REMAIN in the endoscopy area until you are discharged! You are NOT ALLOWED to drive, take a taxi or bus, or leave the Endoscopy Center ALONE. If you do not have a responsible yard truck driver (family member or friend) with you to take you home, your exam cannot be done with sedation and will be cancelled. Medications Some of the medicines you take may need to be stopped or adjusted before your colonoscopy. You MUST call the doctor who ordered any of the following medicines at least 2 weeks before your colonoscopy. ?Blood thinners -- such as Coumadin (warfarin), Plavix (clopidogrel), Ticlid (ticlopidine hydrochloride), Agrylin (anagrelide), Xarelto (Rivaroxaban), Pradaxa (Dabigatran), Eliquis (Apixaban), and Effient (Prasugrel). ?Insulin or diabetes pills. Please call the doctor that monitors your glucose levels. Your insulin dosage may need to be adjusted due to the diet restrictions required with this bowel preparation. (Please bring your diabetes medicines with you on the day of your procedure.) If you take aspirin, take it and ALL other medications prescribed by your doctor. On the day of your colonoscopy, take your medications with a sip of water. Revised 07/2016 1 Five (5) Days Before Your Colonoscopy ?Do NOT take medicines that stop diarrhea -- such as Imodium , Kaopectate , or Pepto Bismol . ?Do NOT take fiber supplements -- such as Metamucil , Citrucel , or Perdiem . ?Do NOT take products that contain iron -- such as multi-vitamins -- (the label lists what is in the products). ?Do NOT take vitamin E. Buy the prescription bowel preparation solution at your local pharmacy or [facility]. Three (3) Days Before Your Colonoscopy Do NOT eat high-fiber foods -- such as popcorn, beans, seeds (flax, sunflower, quinoa), multigrain bread, nuts, salad/vegetables, or fresh and dried fruit. One (1) Day Before Your Colonoscopy Only drink clear liquids the ENTIRE DAY before your colonoscopy. Do NOT eat any solid foods. Drink at least 8 ounces of clear liquids every hour after waking up. The clear liquids you can drink include: ?water, apple, or white grape juice; broth; coffee or tea (without milk or creamer); clear carbonated beverages such as kelsey maria g or lemon-catawba soda; Gatorade or other sports drinks (not red); Bryan-Aid or other flavored drinks (not red). You may eat plain jello or other gelatins (not red) or popsicles (not red). Do NOT drink alcohol on the day before or the day of the procedure. 2 Revised 07/2016 When to Mix and Drink Your Bowel Prep Follow the instructions on the label. After mixing, place the solution in the refrigerator for a couple of hours before drinking. You may add the flavor packet that came with the bowel preparation. DO NOT add ice, sugar or any flavorings to the solution. Evening Before Your Colonoscopy ?Start drinking the bowel preparation at 6 PM the evening before your colonoscopy. Drink an 8-oz glass of bowel preparation every 10 minutes. You must finish drinking the solution by 9 PM the night before your scheduled procedure. ?You may continue to drink clear liquids only until midnight. Do NOT eat or drink ANYTHING after midnight the night before your procedure or your procedure may be cancelled. This is for your safety and will reduce the risk of having any food or liquid in your stomach move into your lungs (aspiration) during a procedure. If you take aspirin, take it and ALL other prescribed medicines with a sip of water on the day of your colonoscopy. Contact Information: If you are unable to keep your appointment or have any questions about the instructions, please call the facility where the procedure is being performed. Call between the hours of 8:00 AM and 5:00 PM. If you are calling after 5:00 PM, please call Nurse stone cutter at [phone]. [facility] [address] [place] [id number] Index # [id number] Revised 07/2016 3 Colonoscopy Procedure Overview Please Read Prior to the Procedure What is a Colonoscopy A colonoscopy is an outpatient procedure in which the inside of the large intestine (colon and rectum) is examined. A colonoscopy is commonly used to evaluate gastrointestinal symptoms, such as rectal and intestinal bleeding, abdominal pain, or changes in bowel habits. Colonoscopies are also performed in individuals without symptoms to check for colorectal polyps or cancer. A screening colonoscopy is recommended for anyone 50 years of age and older, and for anyone with parents, siblings or children with a history of colorectal cancer or polyps. What Happens Before a Colonoscopy To have a successful colonoscopy, your bowel must be empty so that your physician can clearly view the colon. To do this, it is very important to read and follow all of the instructions given to you at least 2 weeks BEFORE your exam. If your bowel is not empty, your colonoscopy will not be successful and may have to be repeated. If you feel nauseated or vomit while taking the bowel preparation, wait 30 minutes before drinking more fluid and start with small sips of solution. Some activity (such as walking) or a few soda crackers may help decrease the nausea you are feeling. If the nausea persists, please contact nurse product distribution specialist at [phone]. You may experience skin irritation around the anus due to the passage of liquid stools. To prevent and treat skin irritation, you should: ?Apply Vaseline or Desitin ointment to the skin around the anus before drinking the bowel preparation medications. These products can be purchased at any drugstore. ?Wipe the skin after each bowel movement with disposable wet wipes instead of toilet paper. These are found in the toilet paper area of the store. ?Sit in a bathtub filled with warm water for 10 to 15 minutes after you finish passing a stool; after soaking, blot the skin dry with a soft cloth, apply Vaseline or Desitin ointment to the anal area, and place a cotton ball just outside your anus to absorb leaking fluid. What Happens During a Colonoscopy During a colonoscopy, an experienced physician uses a colonoscope (a long, flexible instrument about 1/2 inch in diameter) to view the lining of the colon. The colonoscope is inserted into the rectum and advanced through the large intestine. If necessary during a colonoscopy, small amounts of tissue can be removed for analysis (a biopsy) and polyps can be identified and entirely removed. In many cases, a colonoscopy allows accurate diagnosis and treatment of colorectal problems without the need for a major operation. Revised 07/2016 5 ?You are asked to wear a hospital gown and an IV will be started. ?You are given a pain reliever and a sedative intravenously (in your vein). You will feel relaxed and somewhat drowsy. ?You will lie on your left side, with your knees drawn up towards your chest. ?A small amount of air is used to expand the colon so the physician can see the colon reid. ?You may feel mild cramping during the procedure. Cramping can be reduced by taking slow, deep breaths. ?The colonoscope is slowly withdrawn while the lining of your bowel is carefully examined. ?The procedure lasts from 30 minutes to 1 hour. What Happens After a Colonoscopy ?You will stay in a recovery room for observation until you are ready for discharge. ?You may feel some cramping or a sensation of having gas, but this quickly passes. ?If sedation has been given, a responsible family member or friend must drive you home. ?Avoid alcohol, driving, and operating machinery for 24 hours following the procedure. ?Unless otherwise instructed, you may immediately return to your normal diet. We recommend you wait until the day after your procedure to resume normal activities. ?If polyps were removed or a biopsy was taken, the physician performing your colonoscopy will tell you when it is safe to resume taking your blood thinners. ?If a biopsy was taken or a polyp was removed, you may notice a little amount of rectal bleeding for 1 to 2 days after the procedure. If you have a large amount of rectal bleeding, high or persistent fevers, or severe abdominal pain within the next 2 weeks, please go to your local emergency room and call the physician who performed your exam. 6 Revised 07/2016 Copyright [id number] The [facility]. All rights reserved. Revised 07/2016 documented in this encounter [facility] 04-07-2023 Miscellaneous Notes Patient has been identified by name and date of : Yes Requested Prescriptions Pending Prescriptions Disp Refills tamsulosin (FLOMAX) 0.4 mg 90 capsule 3 Sig: Take 1 capsule by mouth daily at bedtime. meloxicam (MOBIC) 15 mg tablet 90 tablet 3 Sig: Take 1 tablet by mouth once daily as needed for pain. With food. RX INSTRUCTIONS: Patient aware RX will be sent to pharmacy. No need to notify patient. Argenis Osorio Pss documented in this encounter [facility] 08-16-2022 Miscellaneous Notes Patient notified, verbalized understanding. States that this is not something he is interested in at this time. Patient states that he will call in if he changes his mind. Please let the patient know stool test for colon cancer screening was positive. Will need referral to general surgery for colonoscopy. Abby Arevalo APRN.CNP documented in this encounter [facility] 06-22-2022 Nurse Note Ambulatory Ear Lavage Pre-treatment: Ear Canal/Tympanic membrane assessed by FADIA Juares CNP Treatment: Both ears Equipment and Irrigation solution and Volume used: Single use syringe with single use irrigation tip Return flow appearance: Debris Patient tolerated procedure: yes Post-treatment: Post Irrigation Post-treatment: Ear Canal/Tympanic membrane assessed by FADIA Juares CNP documented in this encounter [facility] 06-22-2022 History of Present illness Narrative Subjective HPI Nontoxic-appearing male presents urgent care chief complaint possible sinus infection. Duration of symptoms 4 days. Associated symptoms head congestion sore throat sneezing sinus pressure. States does have a transient cough feels like this is from postnasal drip. No known sick contacts. Has used OTC medications little success. Denies any fever body aches chills productive cough chest pain shortness of breath pleuritic pain hemoptysis nausea vomiting abdominal pain change in bowel or bladder habits. Past medical history prescription medication use and allergies reviewed. 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 02/04/2018 [facility] DJ[facility] (degenerative joint disease) of cervical spine 11/18/2011 Hypercholesterolemia 07/03/2006 HYPERLIPIDEMIA NEC/NOS 07/03/2006 HYPERTEN HEART DIS W/O HRT FAIL 07/03/2006 Hypertensive heart disease without heart failure 07/03/2006 OBESITY NOS 07/03/2006 Sleep apnea 02/14/2009 Varicose veins of legs 08/07/2017 PAST SURGICAL HISTORY Procedure Laterality Date LEFT HEART CATH,PERCUTANEOUS Cardiac cath, L heart RIGHT HEART CATHETERIZATION Cardiac cath, R heart TONSILLECTOMY PRIMARY/SECONDARY <AGE 13 1972 Tonsillectomy ALLERGIES Penicillins MEDICATIONS gabapentin (NEURONTIN) 100 mg capsule 1 to 2 capsules at bedtime NEEDED. sildenafil (VIAGRA) 50 mg tablet Take 1 tablet by mouth once daily as needed. tamsulosin (FLOMAX) 0.4 mg Take 1 capsule by mouth daily at bedtime. meloxicam (MOBIC) 15 mg tablet Take 1 tablet by mouth once daily as needed for pain. With food. furosemide (LASIX) 20 mg tablet Take 1 tablet by mouth once daily as needed (edema). potassium chloride ER (KLOR-CON M20) 20 mEq tablet Take 1 tablet by mouth once daily as needed (edema). [START ON 06/25/2022] doxycycline monohydrate 100 mg tablet Take 1 tablet by mouth twice daily for 5 days. fluticasone (FLONASE) 50 mcg/actuation nasal spray Use 2 Sprays in each nostril once daily. Rinse mouth after use. FAMILY HISTORY Problem Relation Age of Onset Arthritis Father other (AAA) Father COPD Mother Hypertension Mother Cancer Mother Lung cancer Cancer Brother Liver cancer,IVDA related? Social History Tobacco Use Smoking status: Never Smokeless tobacco: Never Substance Use Topics Alcohol use: Yes Comment: 1-2 beers occasionally Drug use: No BP 128/82 Pulse 120 Temp 36.9 C (98.4 F) Resp 20 Wt (!) 136.4 kg (300 lb 12.8 oz) SpO2 96% BMI 41.66 kg/m Hr 84 Review of Systems Constitutional: Negative for chills, fever and malaise/fatigue. HENT: Positive for congestion, ear pain and sinus pain. Negative for ear discharge and sore throat. Eyes: Negative for blurred vision, pain, discharge and redness. Respiratory: Negative for cough, hemoptysis, sputum production, shortness of breath, wheezing and stridor. Cardiovascular: Negative for chest pain. Gastrointestinal: Negative for abdominal pain, diarrhea, nausea and vomiting. Musculoskeletal: Negative for myalgias. Skin: Negative for itching and rash. Neurological: Positive for headaches. Negative for dizziness. Objective Physical Exam Constitutional: General: He is not in acute distress. Appearance: He is not diaphoretic. HENT: Head: Normocephalic. Jaw: No trismus, tenderness, swelling or pain on movement. Right Ear: There is impacted cerumen. Left Ear: There is impacted cerumen. Nose: Right Sinus: No maxillary sinus tenderness or frontal sinus tenderness. Left Sinus: Maxillary sinus tenderness and frontal sinus tenderness present. Comments: Bilateral cerumen impaction noted. Post irrigation TM pearly perez and intact. Mouth/Throat: Mouth: Mucous membranes are moist. Pharynx: Oropharynx is clear. No oropharyngeal exudate or posterior oropharyngeal erythema. Eyes: Conjunctiva/sclera: Conjunctivae normal. Pupils: Pupils are equal, round, and reactive to light. Cardiovascular: Rate and Rhythm: Normal rate and regular rhythm. Heart sounds: Normal heart sounds. Pulmonary: Effort: Pulmonary effort is normal. No tachypnea, accessory muscle usage or respiratory distress. Breath sounds: Normal breath sounds. No stridor. No wheezing, rhonchi or rales. Abdominal: Palpations: Abdomen is soft. Tenderness: There is no abdominal tenderness. Musculoskeletal: Cervical back: Normal range of motion and neck supple. No rigidity or tenderness. Lymphadenopathy: Cervical: No cervical adenopathy. Skin: General: Skin is warm and dry. Neurological: Mental Status: He is alert and oriented to person, place, and time. Bilateral ear irrigation by MA. Patient tolerated well. Spontaneous improvement in hearing. ASSESSMENT/PLAN: 1. Bilateral hearing loss due to cerumen impaction - ICD9: 389.8, 380.4, ICD10: H61.23 (primary diagnosis) - REMOVAL OF IMPACTED CERUMEN - INSTRUMENTATION 2. Bacterial sinusitis - ICD9: 473.9, 041.9, ICD10: J32.9, B96.89 Patient diagnosed with hearing loss due to cerumen impaction. This was improved by irrigation. Supportive therapies discussed for this condition. Additionally diagnosed with bacterial sinus infection. Safety net antibiotic sent to pharmacy. Postdated. If started follow-up with PCP for reevaluation. Patient was educated on supportive therapies. Patient will follow up with primary care provider as needed. Patient was instructed to immediately proceed to emergency room for any new, worsening, or symptoms lasting longer than anticipated. The patient's clinical presentation is otherwise unremarkable at this time. Based on exam and clinical finding, the patient is stable for discharge. Plan of care was discussed with patient. Patient verbalizes understanding and agrees to plan of care. This note was generated using [employer] software. It may contain errors in wording, punctuation, or spelling. Wade Juares APRN.MARCK documented in this encounter [facility] 06-22-2022 Instructions Wade Juares APRN.CNP - 06/22/2022 8:58 AM EST [facility] PATIENT INFO ACUTE SINUSITIS OVERVIEW Rhinosinusitis, or more commonly sinusitis, is the medical term for inflammation (swelling) of the lining of the sinuses and nose. The sinuses are the hollow areas within the facial bones that are connected to the nasal openings. The sinuses are lined with mucous membranes, similar to the inside of the nose. There are two main types of sinusitis: acute and chronic. Acute sinusitis is inflammation that lasts for less than four weeks while chronic sinusitis lasts for more than 12 weeks. Acute sinusitis is common, affecting approximately one million people per year in the [place]. ACUTE SINUSITIS CAUSES The most common cause of acute sinusitis is a viral infection associated with the common cold. Bacterial sinusitis occurs much less commonly, in only 0.5 to 2 percent of cases, usually as a complication of viral sinusitis. Because antibiotics are effective only against bacterial, and not viral, infections, most people do not need antibiotics for acute sinusitis. ACUTE SINUSITIS SYMPTOMS Symptoms of acute sinusitis include: Nasal congestion or blockage Thick, yellow to green discharge from the nose Pain in the teeth Pain or pressure in the face that is worse when bending forwards Other acute sinusitis symptoms can include fever (temperature greater than 100.4 F or 38 C), fatigue, cough, difficulty or inability to smell, ear pressure or fullness, headache, and bad breath. In most cases, these symptoms develop over the course of one day and begin to improve within seven to 10 days. DO I NEED TO BE EXAMINED? It is difficult to know if you have a viral or bacterial sinus infection initially. However, most people with a viral infection improve without treatment within seven to 10 days after symptoms begin. Bacterial sinusitis also sometimes improves without treatment, although it can also worsen and require treatment. If one or more of the following bothersome symptoms last more than seven days, an examination by a healthcare provider is recommended: Thick, yellow to green discharge from the nose Face or tooth pain, especially if it is only on one side Tenderness over the maxillary sinuses (located on the left and right side of the nose, inside the cheekbones) Symptoms that initially improve and then worsen When to seek immediate help -- If you have one or more of the following symptoms, you should seek medical attention immediately (even if symptoms have been present for less than seven days): High fever (>102.5 F or 39.2 C) Sudden, severe pain in the face or head Double vision or difficulty seeing Confusion or difficulty thinking clearly Swelling or redness around one or both eyes Stiff neck, shortness of breath ACUTE SINUSITIS TREATMENT Initial treatment of a sinus infection aims to relieve symptoms since almost everyone will improve within the first seven to 10 days. Experts recommend avoiding antibiotics during this time unless there is clear evidence of a severe bacterial infection. Initial treatment Pain relief -- Non-prescription pain medications, such as acetaminophen (eg, Tylenol ) or ibuprofen (eg, Motrin , Advil ) are recommended for pain. Nasal irrigation and saline sprays -- Rinsing the nose with a salt-water (saline) solution is called nasal irrigation or nasal lavage. Saline is also available in a standard nasal spray, although this is not as effective as using larger amounts of water in an irrigation. Nasal irrigation is particularly useful for treating drainage down the back of the throat, sneezing, nasal dryness, and congestion. The treatment helps by rinsing out allergens and irritants from the nose. Saline rinses also clean the nasal lining and can be used before applying sprays containing medications, to get a better effect from the medication. Nasal lavage with warmed saline can be performed as needed, once per day, or twice daily for increased symptoms. Nasal lavage carries few risks when performed correctly. Saline nasal sprays and irrigation kits can be purchased [id number]. Saline mixes can also be purchased or patients can make their own solution. A variety of devices, including bulb syringes, Neti pots, and bottle sprayers, may be used to perform nasal lavage; instructions for nasal lavage are provided in the table. At least 200 mL (about 3/4 cup) of fluid is recommended for each nostril. Nasal decongestants -- Nasal decongestant sprays, including oxymetazoline (Afrin ) and phenylephrine (Rikki-synephrine ) can be used to temporarily treat congestion. However, these sprays should not be used for more than two to three days due to the risk of rebound congestion (when the nose is congested constantly unless the medication is used repeatedly). Other treatments -- Other treatments for congestion, such as oral antihistamines (such as diphenhydramine/Benadryl ) or zinc supplements are not proven to improve symptoms of sinusitis and can have unwanted side effects. Medications to thin secretions (such as guaifenesin) may help to clear mucus. Secondline treatment -- If symptoms have not improved in seven to ten days, you should arrange for medical evaluation. You may need further treatment. Nasal glucocorticoids -- Nasal glucocorticoids (steroids delivered by a nasal spray) can help to reduce swelling inside the nose, usually within two to three days. These drugs have few side effects and dramatically relieve symptoms in most people. There are a number of nasal glucocorticoids available by prescription. These drugs are all effective, but differ in how frequently they must be used and how much they cost. You may need to use a nasal decongestant for a few days before starting a nasal glucocorticoid to reduce nasal swelling; this will allow the nasal glucocorticoid to reach more areas of the nasal passages Do I need an antibiotic? -- If bothersome symptoms of sinusitis persist for 10 or more days, it is possible that you have bacterial sinusitis. The need for antibiotics depends upon the severity of your symptoms. Mild symptoms -- There are two possible treatment options if you have mild sinusitis symptoms: treat with antibiotics or continue to watch and wait for one week. Watching and waiting is a reasonable option because up to 75 percent of people with bacterial sinusitis improve within one month without antibiotics. During the watch and wait period, treatments to improve symptoms are recommended. If symptoms worsen or do not improve after watching and waiting, treatment with an antibiotic is usually recommended. Treatments to relieve symptoms are recommended while using antibiotics. Moderate or severe symptoms -- Most healthcare providers will prescribe an antibiotic for moderate to severe symptoms (temperature >38.3 C or 101 F and/or severe pain that interferes with usual activities). Treatments to relieve symptoms are also recommended during antibiotic treatment. One of the least expensive and most effective antibiotics for sinusitis is amoxicillin. An alternate antibiotic will be prescribed if you are allergic to penicillin. Regardless of which antibiotic is prescribed, it is important to follow the dosing instructions carefully and to finish the entire course of treatment. Taking the medication less often than prescribed or stopping the medication early can lead to complications, such as a recurrent infection. What if I do not improve with treatment? -- If you do not improve or worsen after a course of antibiotics, you should be re-examined. In some cases, symptoms of sinusitis improve but then recur. This is usually because the infection was not completely eliminated by the antibiotic. An alternate antibiotic, extended antibiotic treatment, and/or further testing may be recommended, depending upon your individual situation. documented in this encounter [facility] 02-06-2022 Instructions Abby Arevalo APRN.CNP - 02/06/2022 4:14 PM EDT Recombinant shingles vaccine (Shingrix) is recommended; 2 doses 2-6 months apart. Please read information, check with your insurance, and schedule vaccination at your local pharmacy. A prescription is not required. If you are certain you have coverage to receive this vaccine in the office, we can schedule this for you. documented in this encounter [facility] 02-06-2022 History of Present illness Narrative CC: Patient presents with: Yearly Exam HPI Jose Liao is a 61 year old male who presents today for above. Arthritis in hands and knees is worsening. He had steroid injection right knee a couple months ago, didn't really help. He takes Meloxicam daily without much relief. Exercise: denies regular aerobic exercise but is extremely active at work Diet: Watches diet for salt (salty snacks, added salt, processed frozen/canned foods), sugary/sweet snacks, unhealthy fats: Yes REVIEW OF SYSTEMS General: no fevers, no chills, no night sweats, no change in appetite, no change in energy, and no significant changes in weight HEENT: no frequent or significant headaches, no changes in hearing, no visual changes Respiratory: no cough, no wheezing, no shortness of breath Cardiovascular: no chest pain, no chest pressure, no palpitations, no swelling, and no decrease in exercise tolerance GI: Negative for abdominal discomfort, blood in stools or black stools, change in bowel habit, heart burn, nausea, vomiting : No difficulty urinating, nocturia > 1 time per night or hematuria Musculoskeletal: see HPI Psych: Negative for sleep disturbance, mood disorder and recent psychosocial stressors 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 02/04/2018 [facility] DJ[facility] (degenerative joint disease) of cervical spine 11/18/2011 Hypercholesterolemia 07/03/2006 HYPERLIPIDEMIA NEC/NOS 07/03/2006 HYPERTEN HEART DIS W/O HRT FAIL 07/03/2006 Hypertensive heart disease without heart failure 07/03/2006 OBESITY NOS 07/03/2006 Sleep apnea 02/14/2009 Varicose veins of legs 08/07/2017 PAST SURGICAL HISTORY Procedure Laterality Date LEFT HEART CATH,PERCUTANEOUS Cardiac cath, L heart RIGHT HEART CATHETERIZATION Cardiac cath, R heart TONSILLECTOMY PRIMARY/SECONDARY <AGE 12 1972 Tonsillectomy ALLERGIES Penicillins MEDICATIONS sildenafil (VIAGRA) 50 mg tablet Take 1 tablet by mouth once daily as needed. tamsulosin (FLOMAX) 0.4 mg Take 1 capsule by mouth daily at bedtime. meloxicam (MOBIC) 15 mg tablet Take 1 tablet by mouth once daily as needed for pain. With food. furosemide (LASIX) 20 mg tablet Take 1 tablet by mouth once daily as needed (edema). potassium chloride ER (KLOR-CON M20) 20 mEq tablet Take 1 tablet by mouth once daily as needed (edema). gabapentin (NEURONTIN) 100 mg capsule 1 to 2 capsules at bedtime NEEDED. COMPOUNDED PRESCRIPTION KNEE HIGH COMPRESSION STOCKINGS 30-40 MM. RIGHT LEG. DX: EDEMA, VARICOSE VEINS. FAMILY HISTORY Problem Relation Age of Onset Arthritis Father other (AAA) Father COPD Mother Hypertension Mother Cancer Mother Lung cancer Cancer Brother Liver cancer,IVDA related? Social History Tobacco Use Smoking status: Never Smokeless tobacco: Never Substance Use Topics Alcohol use: Yes Comment: 1-2 beers occasionally Drug use: No PHYSICAL EXAM BP 134/82 Pulse 66 Resp 20 Ht 181 cm (5' 11.25") Wt 131.5 kg (290 lb) BMI 40.16 kg/m General Appearance: well appearing, in no acute distress, alert Pysch: mood and affect broad and appropriate Skin: Skin color, texture, turgor normal for age; Eyes: conjunctiva pink and moist, no icterus, sclera white, non-injected Neck: Thyroid normal size and symmetric without palpable nodules, Neck supple, No adenopathy Lymph nodes: No supraclavicular lymphadenopathy Lungs: Lungs clear to auscultation. No wheezing, rhonchi, rales. Heart: RRR without murmur, gallop, or rubs. No ectopy Ext: no edema in LE bilaterally, good distal pulses Health maintenance reviewed with patient: HIV SCREENING Never done SHINGRIX VACCINE(1 of 2) Never done BP CONTROLLED (<130/80) due on 05/17/2021 COLORECTAL CANCER SCREENING due on 05/27/2021 ANNUAL PCP TEAM CHRONIC DISEASE VISIT due on 12/04/2021 COVID-19 VACCINE(4 - Booster for Moderna series) due on 02/06/2023 INFLUENZA(1) due on 02/07/2022 PROSTATE CANCER SCREENING DISCUSSION due on 08/08/2022 DEPRESSION SCREENING due on 02/06/2023 DIABETES SCREEN due on 04/15/2023 LIPID SCREEN due on 04/15/2025 DTAP,TDAP,TD(3 - Td or Tdap) due on 08/08/2027 HEPATITIS C SCREENING Completed DATA REVIEWED: Most recent labs ASSESSMENT/PLAN: 1. Wellness examination - ICD9: V70.0, ICD10: Z00.00 (primary diagnosis) - Counseled on healthy diet and regular exercise - Discussed need for and benefit of weight loss. BMI 40.16 kg/(m^2) - Colorectal cancer screening recommended - agrees to Cologuard - Depression screening tool completed and reviewed with patient. Based on score and interview, patient is not at risk for depression and recommended no further intervention at this time. - Patient was counseled [id number] by myself (the billing provider) for the following immunizations and vaccine components, including side effects: COVID-19 and Shingrix. Patient declined - Follow up for annual exam in one year 2. Bilateral primary osteoarthritis of knee - ICD9: 715.16, ICD10: M17.0 Continue with Meloxicam. Can also try tylenol arthritis. Follow-up with orthopedics, Dr. Sosa 3. Bilateral hand pain - ICD9: 729.5, ICD10: M79.641, M79.642 As above 4. Osteoarthritis of spine with radiculopathy, cervical region - ICD9: 721.0, ICD10: M47.22 Meds refilled - GABAPENTIN 100 MG CAPSULE - MELOXICAM 15 MG TABLET 5. Erectile dysfunction, unspecified erectile dysfunction type - ICD9: 607.84, ICD10: N52.9 - SILDENAFIL 50 MG TABLET 6. BPH with obstruction/lower urinary tract symptoms - ICD9: 600.01, 599.69, ICD10: N40.1, N13.8 Stable - TAMSULOSIN 0.4 MG CAPSULE - PSA/PROSTSPECAG DIAG 7. Varicose veins of legs - ICD9: 454.9, ICD10: I83.93 Meds refilled - FUROSEMIDE 20 MG TABLET - POTASSIUM CHLORIDE ER 20 MEQ TABLET,EXTENDED RELEASE(PART/CRYST) 8. Hypercholesterolemia - ICD9: 272.0, ICD10: E78.00 Control to be determined on lab results - LIPID PANEL BASIC - COMP METABOLIC PANEL 9. Colon cancer screening - ICD9: V76.51, ICD10: Z12.11 - COLOGUARD 10. Class 3 severe obesity due to excess calories without serious comorbidity with body mass index (BMI) of 40.0 to 44.9 in adult (HCC) - ICD9: 278.01, V85.41, ICD10: E66.01, Z68.41 Weight increasing Prescription instructions reviewed with patient as applicable. Potential red flag symptoms discussed with the patient. Reviewed appropriate action plan to take if red flag symptoms occur. Patient agreeable to treatment plan. Abby Arevalo APRN.CNP documented in this encounter [facility] 07-03-2015 History of Past i llness Narrative Problem Noted Date Resolved Date Depressive disorder 07/03/2015 04/18/2020 Cardiomyopathy 02/14/2009 02/08/2016 Sleep apnea 02/14/2009 08/07/2017 Pain in joint, multiple sites 10/26/2008 Essential hypertension, benign 07/03/2006 0 12/04/2020 Hypertensive heart disease without heart failure 07/03/2006 02/08/2016 documented as of this encounter (statuses as of 02/06/2022) [facility] History of Past illness Narrative* Problem Noted Date Resolved Date Depressive disorder 07/03/2015 04/18/2020 Cardiomyopathy 02/14/2009 02/08/2016 Sleep apnea 02/14/2009 08/07/2017 Pain in joint, multiple sites 10/26/2008 Essential hypertension, benign 07/03/2006 0 12/04/2020 Hypertensive heart disease without heart failure 07/03/2006 02/08/2016 documented as of this encounter (statuses as of 06/22/2022) [facility] History of Past illness Narrative* Problem Noted Date Resolved Date Depressive disorder 07/03/2015 04/18/2020 Cardiomyopathy 02/14/2009 02/08/2016 Sleep apnea 02/14/2009 08/07/2017 Pain in joint, multiple sites 10/26/2008 Essential hypertension, benign 07/03/2006 0 12/04/2020 Hypertensive heart disease without heart failure 07/03/2006 02/08/2016 documented as of this encounter (statuses as of 08/16/2022) [facility] History of Past illness Narrative* Problem Noted Date Diagnosed Date Resolved Date Depressive disorder 07/03/2015 04/18/20 Cardiomyopathy 02/14/2009 02/08/2016 Sleep apnea 02/14/2009 08/07/2017 Pain in joint, multiple sites 10/26/2008 07/03/2015 Essential hypertension, benign 07/03/2006 12/04/2020 Hypertensive heart disease w [facility] heart failure 07/03/2006 02/08/2016 documented as of this encounter (statuses as of 04/08/2023) [facility] History of Past illness Narrative* Problem Noted Date Diagnosed Date Resolved Date Depressive disorder 07/03/2015 04/18/20 20 Cardiomyopathy 02/14/2009 02/08/2016 Sleep apnea 02/14/2009 08/07/2017 Pain in joint, multiple sites 10/26/2008 07/03/2015 Essential hypertension, benign 07/03/2006 12/04/2020 Hypertensive heart disease w [facility] heart failure 07/03/2006 02/08/2016 Obesity, unspecified 07/03/2006 023 documented as of this encounter (statuses as of 04/15/2023) [facility] of Past illness Narrative* Problem Noted Date Diagnosed Date Resolved Date Depressive disorder 07/03/2015 04/18/20 20 Cardiomyopathy 02/14/2009 02/08/2016 Sleep apnea 02/14/2009 08/07/2017 Pain in joint, multiple sites 10/26/2008 07/03/2015 Essential hypertension, benign 07/03/2006 12/04/2020 Hypertensive heart disease w [facility] heart failure 07/03/2006 02/08/2016 Obesity, unspecified 07/03/2006 023 documented as of this encounter (statuses as of 04/21/2023) [facility] of Past illness Narrative* Problem Noted Date Diagnosed Date Resolved Date Depressive disorder 07/03/2015 04/18/20 20 Cardiomyopathy 02/14/2009 02/08/2016 Sleep apnea 02/14/2009 08/07/2017 Pain in joint, multiple sites 10/26/2008 07/03/2015 Essential hypertension, benign 07/03/2006 12/04/2020 Hypertensive heart disease w [facility] heart failure 07/03/2006 02/08/2016 Obesity, unspecified 07/03/2006 023 documented as of this encounter (statuses as of 05/06/2023) [facility] of Past illness Narrative* Problem Noted Date Diagnosed Date Resolved Date Depressive disorder 07/03/2015 04/18/20 20 Cardiomyopathy 02/14/2009 02/08/2016 Sleep apnea 02/14/2009 08/07/2017 Pain in joint, multiple sites 10/26/2008 07/03/2015 Essential hypertension, benign 07/03/2006 12/04/2020 Hypertensive heart disease w [facility] heart failure 07/03/2006 02/08/2016 Obesity, unspecified 07/03/2006 023 documented as of this encounter (statuses as of 05/09/2023) [facility] History of Past illness Narrative* Problem Noted Date Diagnosed Date Resolved Date Depressive disorder 07/03/2015 04/18/20 20 Cardiomyopathy 02/14/2009 02/08/2016 Sleep apnea 02/14/2009 08/07/2017 Pain in joint, multiple sites 10/26/2008 07/03/2015 Essential hypertension, benign 07/03/2006 12/04/2020 Hypertensive heart disease w [facility] heart failure 07/03/2006 02/08/2016 Obesity, unspecified 07/03/2006 023 documented as of this encounter (statuses as of 08/08/2023) [facility] Diagnosis Onset Date Resolution Status Encounter for screening for COVID-19 acute [facility] Work Phone: Evaluation note* Diagnosis Wellness examination- Primary Bilateral primary osteoarthritis of knee Bilateral hand pain Pain in limb Osteoarthritis of spine with radiculopathy, cervical region Erectile dysfunction, unspecified erectile dysfunction type BPH with obstruction/lower urinary tract symptoms Hypertrophy of prostate with urinary obstruction and other lower urinary tract symptoms (LUTS) Varicose veins of legs Asymptomatic varicose veins Hypercholesterolemia Pure hypercholesterolemia Colon cancer screening Special screening for malignant neoplasms, colon Class 3 severe obesity due to excess calories without serious comorbidity with body mass index (BMI) of 40.0 to 44.9 in adult (HCC) [facility] Diagnosis Bilateral hearing loss due to cerumen impaction- Primary Bacterial sinusitis Unspecified sinusitis (chronic) [facility] Diagnosis Positive colorectal cancer screening using Cologuard test- Primary [facility] Diagnosis BPH with obstruction/lower urinary tract symptoms Hypertrophy of prostate with urinary obstruction and other lower urinary tract symptoms (LUTS) Osteoarthritis of spine with radiculopathy, cervical region [facility] Diagnosis Routine medical exam- Primary Routine general medical examination at a health care facility Erectile dysfunction, unspecified erectile dysfunction type BPH with obstruction/lower urinary tract symptoms Hypertrophy of prostate with urinary obstruction and other lower urinary tract symptoms (LUTS) Varicose veins of legs Asymptomatic varicose veins Osteoarthritis of spine with radiculopathy, cervical region Positive colorectal cancer screening using Cologuard test Hypercholesterolemia Pure hypercholesterolemia Degenerative tear of medial meniscus of right knee Other and unspecified derangement of medial meniscus Need for vaccination Need for prophylactic vaccination and inoculation against unspecified single disease Special screening for malignant neoplasms, colon Obesity, Class II, BMI 35-39.9 Obesity, unspecified Asymptomatic varicose veins of both lower extremities Asymptomatic varicose veins [facility] Diagnosis Erectile dysfunction, unspecified erectile dysfunction type [facility] Diagnosis Bacterial sinusitis- Primary Unspecified sinusitis (chronic) [facility] Diagnosis Obesity, Class II, BMI 35-39.9- Primary Obesity, unspecified BPH with obstruction/lower urinary tract symptoms Hypertrophy of prostate with urinary obstruction and other lower urinary tract symptoms (LUTS) Varicose veins of both lower extremities, unspecified whether complicated Osteoarthritis of spine with radiculopathy, cervical region Screening for depression Encounter for screening examination for other mental health and behavioral disorders Impacted cerumen, right ear Hypercholesterolemia Pure hypercholesterolemia [facility] Diagnosis Hypercholesterolemia- Primary Pure hypercholesterolemia [facility] Diagnosis Hypercholesterolemia- Primary Pure hypercholesterolemia [facility] Diagnosis Class 3 severe obesity without serious comorbidity with body mass index (BMI) of 40.0 to 44.9 in adult, unspecified obesity type (HCC)- Primary Osteoarthritis of spine with radiculopathy, cervical region Osteoarthritis of fingers of both hands Hypercholesterolemia Pure hypercholesterolemia Primary osteoarthritis of both knees Primary localized osteoarthrosis, lower leg [facility] Diagnosis Obesity, Class II, BMI 35-39.9- Primary Obesity, unspecified [facility] Diagnosis Obesity, Class II, BMI 35-39.9 Obesity, unspecified [facility] Diagnosis Obesity, Class II, BMI 35-39.9- Primary Obesity, unspecified Viral upper respiratory tract infection Acute upper respiratory infections of unspecified site Primary osteoarthritis of both knees Primary localized osteoarthrosis, lower leg [facility] Diagnosis Obesity, Class II, BMI 35-39.9- Primary Obesity, unspecified [facility] Diagnosis Osteoarthritis of spine with radiculopathy, cervical region Osteoarthritis of fingers of both hands Primary osteoarthritis of both knees Primary localized osteoarthrosis, lower leg [facility] Outpatient Procedure (Routine) - Pending Review Specialty Diagnoses / Procedures Referred By Maria De Jesus t Referred To Contact [facility] Diagnoses Positive colorectal cancer screening using Cologuard test Special screening for malignant neoplasms, colon Procedures COLONOSCOPY SCREENING COLONOSCOPY FLX DX W/COLLJ SPEC WHEN PFRMD Boone Andino MD [address] [place] [address] [facility] [address] [place] [id number] Referral ID Status Reason Start Date Expiration Date Visits Requested Visits Authorized [id number] Pending Review Auto-Generat ed Referral 04/14/2023 04/14/2024 1 1 [facility] Chief Complaint and Reason for Visit Chief Complaint COVID TEST FOR SURGE RY PREOP PREOP Reason for Visit Encounter for screen ing for COVID-19 Advance Directives Advance Directive Response Recorded Date/ Time Living Will No August 06, 018 8:02pm Power of Offset Second Press Operator No August 06, 2017 8:02pm Summary Purpose Family History No Family History Records FoundNo Family History Records Found Reason for Referral Specialty Diagnoses / Procedures Referred By Maria De Jesus t Referred To Contact General Surgery Diagnoses Positive colorectal cancer screening using Cologuard test Procedures CONSULT TO GENERAL SURGERY OFFICE/OUTPATIENT NEW HIGH MDM 60-74 MINUTES Older, Abby, 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 [address] [place] [address] Referral ID Status Reason Start Date Expiration Date Visits Requested Visits Authorized [id number] Authorized PCP Requested Referral 08/16/2022 08/16/2023 1 1 Additional Source Comments Goals (unrecognized section and content) Goals may be documented in a n alternate section (unrecognized sect ion and content) No Status Records FoundNo Status Records Found INFORMATION SOURCE (unrecogn ized section and content) DATE CREATED AUTHOR 09/14/2021 [facility] DATE CREATED AUTHOR AUTHOR'S ORGANIZ ATION 02/14/2025 [facility] Source Comments (unrecognize d section and content) In the event this informatio n is protected by the Federal Confidentiality of Alcohol and Drug Abuse Patient Records regulations: The Federal rules restrict any use of the information to criminally investigate or prosecute any alcohol or drug abuse patient.[facility] the event this information is protected by the Federal Confidentiality of Alcohol and Drug Abuse Patient Records regulations: The Federal rules restrict any use of the information to criminally investigate or prosecute any alcohol or drug abuse patient.[facility] Foundation[facility] the event this information is protected by the Federal Confidentiality of Alcohol and Drug Abuse Patient Records regulations: The Federal rules restrict any use of the information to criminally investigate or prosecute any alcohol or drug abuse patient.[facility] Foundation[facility] the event this information is protected by the Federal Confidentiality of Alcohol and Drug Abuse Patient Records regulations: The Federal rules restrict any use of the information to criminally investigate or prosecute any alcohol or drug abuse patient.[facility] Foundation[facility] the event this information is protected by the Federal Confidentiality of Alcohol and Drug Abuse Patient Records regulations: The Federal rules restrict any use of the information to criminally investigate or prosecute any alcohol or drug abuse patient.[facility] Foundation[facility] the event this information is protected by the Federal Confidentiality of Alcohol and Drug Abuse Patient Records regulations: The Federal rules restrict any use of the information to criminally investigate or prosecute any alcohol or drug abuse patient.[facility] FoundationIn the event this information is protected by the Federal Confidentiality of Alcohol and Drug Abuse Patient Records regulations: The Federal rules restrict any use of the information to criminally investigate or prosecute any alcohol or drug abuse patient.[facility] FoundationIn the event this information is protected by the Federal Confidentiality of Alcohol and Drug Abuse Patient Records regulations: The Federal rules restrict any use of the information to criminally investigate or prosecute any alcohol or drug abuse patient.[facility] FoundationIn the event this information is protected by the Federal Confidentiality of Alcohol and Drug Abuse Patient Records regulations: The Federal rules restrict any use of the information to criminally investigate or prosecute any alcohol or drug abuse patient.[facility] FoundationIn the event this information is protected by the Federal Confidentiality of Alcohol and Drug Abuse Patient Records regulations: The Federal rules restrict any use of the information to criminally investigate or prosecute any alcohol or drug abuse patient.[facility] FoundationIn the event this information is protected by the Federal Confidentiality of Alcohol and Drug Abuse Patient Records regulations: The Federal rules restrict any use of the information to criminally investigate or prosecute any alcohol or drug abuse patient.[facility] FoundationIn the event this information is protected by the Federal Confidentiality of Alcohol and Drug Abuse Patient Records regulations: The Federal rules restrict any use of the information to criminally investigate or prosecute any alcohol or drug abuse patient.[facility] FoundationIn the event this information is protected by the Federal Confidentiality of Alcohol and Drug Abuse Patient Records regulations: The Federal rules restrict any use of the information to criminally investigate or prosecute any alcohol or drug abuse patient.[facility] FoundationIn the event this information is protected by the Federal Confidentiality of Alcohol and Drug Abuse Patient Records regulations: The Federal rules restrict any use of the information to criminally investigate or prosecute any alcohol or drug abuse patient.[facility] FoundationIn the event this information is protected by the Federal Confidentiality of Alcohol and Drug Abuse Patient Records regulations: The Federal rules restrict any use of the information to criminally investigate or prosecute any alcohol or drug abuse patient.[facility] FoundationIn the event this information is protected by the Federal Confidentiality of Alcohol and Drug Abuse Patient Records regulations: The Federal rules restrict any use of the information to criminally investigate or prosecute any alcohol or drug abuse patient.[facility] FoundationIn the event this information is protected by the Federal Confidentiality of Alcohol and Drug Abuse Patient Records regulations: The Federal rules restrict any use of the information to criminally investigate or prosecute any alcohol or drug abuse patient.[facility] FoundationIn the event this information is protected by the Federal Confidentiality of Alcohol and Drug Abuse Patient Records regulations: The Federal rules restrict any use of the information to criminally investigate or prosecute any alcohol or drug abuse patient.[facility] FoundationIn the event this information is protected by the Federal Confidentiality of Alcohol and Drug Abuse Patient Records regulations: The Federal rules restrict any use of the information to criminally investigate or prosecute any alcohol or drug abuse patient.[facility] FoundationIn the event this information is protected by the Federal Confidentiality of Alcohol and Drug Abuse Patient Records regulations: The Federal rules restrict any use of the information to criminally investigate or prosecute any alcohol or drug abuse patient.[facility] Reason for Visit (unrecogniz ed section and content) Reason Comments Yearly Exam Reason Comments Head Congestion ST, HOPKINS, sneezing, co ugh x4 days Reason Comments Results Abnormal Lab Reason Onset Date Comments Refill Request 04/07/2023 Reason Comments Physical Reason Comments Opened In Error Reason Comments Results Reason Comments Med Change Request Reason Comments Results colonoscopy Reason Comments Sinus Problem Sinus issues x 1 mon th Reason Comments Follow Up For Medication refills Reason Comments Results Prescription Reason Comments Discussion Reason Comments Insurance Authorization Reason Onset Date Comments Refill Request 12/13/2024 Reason Comments Obesity Medication follow up Reason Comments Follow Up weight check/adipex Reason Onset Date Comments Refill Request 02/16/2025 Care Teams (unrecognized sec tion and content) Contract Admin Relationship Specialty Start Date End Date Boone Andino MD [address] [place], [place] [address] PCP - General 02/24/07 Contract Admin Relationship Specialty Start Date End Date Boone Andino MD [address] [place] [address] PCP - General 02/24/07 Contract Admin Relationship Specialty Start Date End Date Boone Andino MD [address] [place] [address] PCP - General 02/24/07 Contract Admin Relationship Specialty Start Date End Date Boone Andino MD [address] [place] [address] PCP - General 02/24/07 Contract Admin Relationship Specialty Start Date End Date Boone Andino MD [address] [place] [address] PCP - General 02/24/07 Contract Admin Relationship Specialty Start Date End Date Boone Andino MD [address] [place] [address] PCP - General 02/24/07 Contract Admin Relationship Specialty Start Date End Date Boone Andino MD [address] [place], [place] [address] [phone] PCP - General 02/24/07 Contract Admin Relationship Specialty Start Date End Date Boone Andino MD [address] [place] [address] PCP - General 02/24/07 Contract Admin Relationship Specialty Start Date End Date Boone Andino MD [address] [place] [address] PCP - General 02/24/07 Contract Admin Relationship Specialty Start Date End Date Boone Andino MD [address] [place] [address] PCP - General 02/24/07 Contract Admin Relationship Specialty Start Date End Date Boone Andino MD [address] [place] [address] PCP - General 02/24/07 Abby Lambert, YARN 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 [address] [place] [address] [facility] 05/17/24 Contract Admin Relationship Specialty Start Date End Date Boone Andino MD [address] [place] [address] PCP - General 02/24/07 Abby Lambert, YARN 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 [address] [place] [address] [facility] 05/17/24 Contract Admin Relationship Specialty Start Date End Date Boone Andino MD [address] [place] [address] PCP - General 02/24/07 Abby Lambert, YARN 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 [address] [place] [address] [facility] 05/17/24 Contract Admin Relationship Specialty Start Date End Date Boone Andino MD [address] [facility] [place] [id number] PCP - General 02/24/07 Abby Lambert, YARN 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 [address] [place] [address] [facility] 05/17/24 Contract Admin Relationship Specialty Start Date End Date Boone Andino MD [address] [place] [address] PCP - General 02/24/07 Abby Lambert, YARN 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 [address] [place] [address] [facility] 05/17/24 Contract Admin Relationship Specialty Start Date End Date Boone Andino MD [address] [place] [address] PCP - General 02/24/07 Abby Lambert, YARN 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 [address] [place] [address] [facility] 05/17/24 Contract Admin Relationship Specialty Start Date End Date Boone Andino MD [address] [place] [address] PCP - General 02/24/07 Abby Lambert, YARN 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 [address] [place] [address] [facility] 05/17/24 FOR RECORDS PERTAINING TO PATIENTS WHO ARE OR HAVE BEEN ENROLLED IN A CHEMICAL DEPENDENCY/SUBSTANCEABUSE PROGRAM, SOME INFORMATION MAY BE OMITTED. This clinical summary was aggregated from multiple sources. Caution should be exercised in using it in the provision of clinical care. This summary normalizes information from multiple sources, and as a consequence, information in this document may materially change the coding, format and clinical context of patient data. In addition, data may be omitted in some cases. CLINICAL DECISIONS SHOULD BE BASED ON THE PRIMARY CLINICAL RECORDS. [facility]. provides no warranty or guarantee of the accuracy or completeness of information in this document.
[2025-03-30 08:08] LABS: Hematocrit 44.6 % (40-54); Hemoglobin 14.8 g/dL (13.0-16.5); Immature Granulocytes Count 0.010 X10^3/uL (0.0-0.0); Mean Corp Hgb Conc 33.2 g/dL (32-36); Mean Corpuscular Volume 86.8 fL (80-94); Mean Platelet Vol. 9.6 fl (6.2-12.0); NRBC Flagged by Analyzer 0 % (0-5); Platelet Count 236 K/mm3 (150-450); RBC Distribution Width CV 13.2 % (11.6-14.6); RBC Distribution Width SD 41.8 fl (35.1-43.9); Red Blood Count 5.14 M/mm3 (4.6-6.2); White Blood Count 6.5 K/mm3 (4.4-11.0)
[2025-03-30 09:01] LABS: Albumin, Serum 4.3 g/dL (3.4-4.8); Anion Gap 12 (5-15); BUN 15 mg/dL (4-19); BUN/Creat Ratio 17.5 RATIO (10-20); Calcium,Total 9.0 mg/dL (7.6-11.0); Carbon Dioxide 23.8 mmol/L (21.0-32.0); Chloride 103 mmol/L (98-108); Glucose 99 mg/dL (70-99); Potassium 4.2 mmol/L (3.3-5.1)
== END | disposition home or self-care (01) ==
PROVIDERS: PCP Internal Medicine; Referring Provider Specialist; Visit Provider Specialist
DX: Z01.810 Encounter for preprocedural cardiovascular examination (principal)
CPT/HCPCS: 36415; 80048; 82040; 85025; 93005

== ENCOUNTER → 2025-04-08 | Outpatient (CLI) | payer BC, SELFPAY ==
--- NOTE | 2025-04-08 06:24 | CT_ITS ---
PROCEDURE: CT/Extremity Lower without Contra
== END | disposition home or self-care (01) ==
LOC: CT 06:22
PROVIDERS: PCP Internal Medicine; Referring Provider Specialist; Visit Provider Specialist
DX: M17.11 Unilateral primary osteoarthritis, right knee (principal)
CPT/HCPCS: 73700